=== PATIENT | female | born 1930 | race Caucasian/White ===

== ENCOUNTER 2018-12-23 13:33 | Emergency (ER) | payer MEDICARE, MEDICAID ==
[2018-12-23] MEDS ORDERED: cloNIDine 0.1 MG Tab PO ONE (14:16)
== END 2018-12-23 15:20 | disposition home or self-care (01) ==
LOC: LB.ED 13:33
DX: I10 Essential (primary) hypertension (principal)
CPT/HCPCS: 36415; 80048; 85025; 93005; 99283; A9270

== ENCOUNTER 2019-05-17 09:27 | Inpatient (IN) | payer MEDICARE, MEDICAID ==
[2019-05-17] MEDS ORDERED: atorvaSTATin 80 MG Tab PO ONE (09:42)
[2019-05-17] MEDS ORDERED: Clopidogrel 75 MG Tab PO ONE (09:54)
--- NOTE | 2019-05-17 10:01 | EDM.PDOC ---
ED HPI GENERAL MEDICAL PROBLEM - General Chief Complaint: General Stated Complaint: POSSIBLE STROKE Time Seen by Provider: 05/17/19 09:38 Source of Information: Reports: Patient History Limitations: Reports: No Limitations - History of Present Illness INITIAL COMMENTS - FREE TEXT/NARRATIVE: Qi was found to have speech difficulties upon awakening this am. Last known well time would obviate to last evening. She was immediately brought down for head ct. She initially had some transient nausea upon getting moved out of bed. Now denies pain, nausea, or anxiety. History constrained by her ability to speak only one word answers. - Related Data Allergies Allergy/AdvReac Type Severity Reaction Status Date / Time amlodipine [From Norvasc] Allergy Cannot Verified 02/23/18 10:28 Remember celecoxib [From Celebrex] Allergy Cannot Verified 02/23/18 10:28 Remember duloxetine [From Cymbalta] Allergy Cannot Verified 02/23/18 10:28 Remember fentanyl Allergy Cannot Verified 02/23/18 10:28 Remember hydrochlorothiazide Allergy Cannot Verified 02/23/18 10:28 [From Hyzaar] Remember losartan [From Hyzaar] Allergy Cannot Verified 02/23/18 10:28 Remember metronidazole [From Flagyl] Allergy Cannot Verified 02/23/18 10:28 Remember prednisone Allergy Cannot Verified 02/23/18 10:28 Remember Sulfa (Sulfonamide Allergy Diarrhea Verified 02/23/18 10:28 Antibiotics) tramadol [From Ultram] Allergy Cannot Verified 02/23/18 10:28 Remember Home Meds: Home Meds Furosemide 20 mg PO DAILY 12/17/16 [History] Levothyroxine 25 mcg PO ACBREAKFAST 12/17/16 [History] Lisinopril 10 mg PO QPM 12/17/16 [History] Lisinopril 20 mg PO QAM 12/17/16 [History] Cholecalciferol (Vitamin D3) [Vitamin D3] 2,000 unit PO DAILY 02/23/18 [History] Metoprolol Tartrate 50 mg PO BID 02/23/18 [History] polyethylene glycoL 3350 [MiraLAX] 17 gm PO QPM 02/23/18 [History] Past Medical History HEENT History: Reports: Hard of Hearing, Impaired Vision Cardiovascular History: Reports: Hypertension Respiratory History: Reports: None Gastrointestinal History: Reports: Diverticulosis MICA W[employer]ER GLUER History: Reports: Other MICA W[employer]UER History: Parity: 2 gravity: 2, 2 vaginal deliveries. no known MICHELLE Musculoskeletal History: Reports: Osteoarthritis Endocrine/Metabolic History: Reports: Hypothyroidism Oncologic (Cancer) History: Reports: None - Past Surgical History Other Respiratory Surgeries/Procedures: no O2 at night GI Surgical History: Reports: Appendectomy, Hernia Repair/Other Female Surgical History: Reports: Hysterectomy, Other (See Below) Other Female Surgeries/Procedures: Prolapsed vagina; bladder repair surgery; large cervical esophagus Other Neurological Surgeries/Procedures: no sensation changes in LEs Musculoskeletal Surgical History: Reports: Other (See Below) Other Musculoskeletal Surgeries/Procedures:: surgery right leg to relieve heal pain; left ankle repair tendon Social & Family History - Living Situation & Occupation Social History Comment: Lives in [facility]- [address]6. DNR ED ROS GENERAL - Review of Systems Review Of Systems: See Below (except as noted in HPI) Constitutional: Reports: No Symptoms Respiratory: Reports: No Symptoms Cardiovascular: Reports: No Symptoms GI/Abdominal: Reports: No Symptoms Musculoskeletal: Reports: No Symptoms Skin: Reports: No Symptoms Neurological: Denies: Headache ED EXAM, GENERAL - Physical Exam Exam: See Below Exam Limited By: Other (aphasia) General Appearance: Alert, No Apparent Distress Eye Exam: Bilateral Eye: EOMI, PERRL Ears: Normal External Exam, Hearing Grossly Normal Nose: Normal Inspection Throat/Mouth: Normal Inspection, Normal Lips, Normal Oropharynx. No: Normal Voice Head: Atraumatic, Normocephalic Neck: Normal Inspection, Supple, Non-Tender, Full Range of Motion Respiratory/Chest: No Respiratory Distress, Lungs Clear, Normal Breath Sounds Cardiovascular: Regular Rate, Rhythm, No Gallop, No Murmur, No Rub GI/Abdominal: Normal Bowel Sounds, Soft, Non-Tender Extremities: Normal Inspection, Non-Tender, Normal Capillary Refill Neurological: Alert, Oriented, Normal Reflexes, Other (right facial droop and right hemiparesis ) Skin Exam: Warm, Dry Course - Vital Signs Text/Narrative:: Clearly not TPA candidate as awoke with sx's Reviewed uptodate and, based on failure of daily baby aspirin and TIA with ABCD2 score of >4, clopidogrel initiated, along with statin increase after head CT negative for bleed per radiology Reviewed articles on minocycline and may not be entirely efficacious, but seems relatively benign NIHSS >16 upon arrival Last Recorded V/S: Last Vital Signs Temp 98.8 F 05/17/19 09:42 Pulse 67 05/17/19 09:42 Resp 16 05/17/19 09:42 BP 181/79 H 05/17/19 09:42 Pulse Ox 96 05/17/19 09:42 - Orders/Labs/Meds Orders: Active Orders 24 hr Category Date Time Status Admission Diagnosis [ADT] Routine ADT 05/17/19 10:57 Active Accu Check [Blood Glucose Check, Bedside] [RC] ONETIME Care 05/17/19 09:54 Active Cardiac Monitoring [RC] .As Directed Care 05/17/19 09:41 Active EKG Documentation Completion [RC] ASDIRECTED Care 05/17/19 09:38 Active Chest 1V Frontal [CR] Stat Exams 05/17/19 09:38 Taken Head wo Cont [CT] Stat Exams 05/17/19 09:33 Taken UA RFX KATHLEEN AND CULT IF INDIC [URIN] Routine Lab 05/17/19 09:37 Ordered Aspirin Med 05/17/19 09:45 Active 162 mg PO DAILY Medication Orders Aspirin (Aspirin) 162 mg PO DAILY [facility] Last Admin: 05/17/19 10:37 Dose: 162 mg Atorvastatin Calcium (Lipitor) 80 mg PO BEDTIME MICHAEL Labs: Laboratory Tests 05/17/19 05/17/19 05/17/19 Range/Units 09:39 10:15 10:15 WBC 8.5 D (4.0-11.0) K/uL RBC 3.63 L (3.80-5.80) M/uL Hgb 12.0 (11.5-16.5) g/dL Hct 34.8 L (37.0-47.0) % MCV 96 (76-96) fL MCH 33.1 H (27.0-32.0) pg MCHC 34.5 (31.0-35.0) g/dL RDW 14.4 (11.0-16.0) % Plt Count 219 (150-500) K/uL MPV 9.7 (6.0-10.0) fL Neut % (Auto) 73.3 H (45.0-70.0) % Lymph % (Auto) 13.6 L (20.0-40.0) % Brown % (Auto) 12.2 H (3.0-10.0) % Eos % (Auto) 0.8 L (1.0-5.0) % Baso % (Auto) 0.1 (0.0-0.5) % Neut # (Auto) 6.23 (2.00-7.50) K/uL Lymph # (Auto) 1.16 L (1.50-4.00) K/uL Brown # (Auto) 1.04 H (0.20-0.80) K/uL Eos # (Auto) 0.07 (0.04-0.40) K/uL Baso # (Auto) 0.01 L (0.02-0.10) K/uL PT 9.9 (9.0-11.5) sec INR 1.0 (1.0-3.5) APTT 24.5 (24.4-33.2) SECONDS Sodium 142 (136-145) mmol/L Potassium 4.6 (3.5-5.1) mmol/L Chloride 104 (98-107) mmol/L Carbon Dioxide 27.1 (21.0-32.0) mmol/L Anion Gap 15.5 H (5.0-15.0) mmol/L BUN 32 H D (8-26) mg/dL Creatinine 1.38 H (0.55-1.02) mg/dL Est Cr Clr Drug Dosing TNP Estimated GFR (MDRD) 36 L (>60) MLS/MIN BUN/Creatinine Ratio 23.2 (6-25) Glucose 122 H (74-100) mg/dL Calcium 9.1 (8.5-10.1) mg/dL Total Bilirubin 0.6 D (0.0-1.0) mg/dL AST 36 (15-37) U/L ALT 96 H (12-78) U/L Alkaline Phosphatase 80 (46-116) U/L Troponin I < 0.017 (0.000-0.060) ng/mL Total Protein 7.4 (6.4-8.2) g/dL Albumin 4.0 (3.4-5.0) g/dL Globulin 3.4 (2.2-4.2) g/dL Albumin/Globulin Ratio 1.2 (0.8-2.0) Meds: Medications Generic Name Dose Route Start Last Admin Trade Name Freq PRN Reason Stop Dose Admin Aspirin 162 mg 02/20/20 09:45 05/17/19 10:37 Aspirin PO 162 mg DAILY MICHAEL Administration Atorvastatin Calcium 80 mg 05/17/19 20:00 Lipitor PO BEDTIME MICHAEL Discontinued Medications Generic Name Dose Route Start Last Admin Trade Name Eduarda PRN Reason Stop Dose Admin Atorvastatin Calcium 80 mg 05/17/19 09:42 05/17/19 10:30 Lipitor PO 05/17/19 09:43 80 mg ONETIME ONE Administration Clopidogrel Bisulfate 300 mg 05/17/19 09:54 05/17/19 10:30 Plavix PO 05/17/19 09:55 300 mg ONETIME ONE Administration Clopidogrel Bisulfate Confirm 05/17/19 10:28 Plavix Administered 05/17/19 10:29 Dose 300 mg .ROUTE .STK-MED ONE Minocycline HCl 200 mg 05/17/19 09:49 Minocin PO 05/17/19 09:50 ONETIME ONE Departure - Departure Time of Disposition: 11:00 Disposition: Admitted As Inpatient 66 Clinical Impression: CVA, Cerebrovascular accident - Discharge Information *PRESCRIPTION DRUG MONITORING PROGRAM REVIEWED*: No *COPY OF PRESCRIPTION DRUG MONITORING REPORT IN PATIENT RAFFI: No Sepsis Event Note - Evaluation Sepsis Screening Result: No Definite Risk - Focused Exam Vital Signs: Vital Signs Temp Pulse Resp BP Pulse Ox 05/17/19 09:42 98.8 F 67 16 181/79 H 96 Date Exam was Performed: 05/17/19 Time Exam was Performed: 11:45 - My Orders Last 24 Hours: My Active Orders 05/17/19 09:33 Head wo Cont [CT] Stat 05/17/19 09:37 UA RFX KATHLEEN AND CULT IF INDIC [URIN] Routine 05/17/19 09:38 EKG Documentation Completion [RC] ASDIRECTED Chest 1V Frontal [CR] Stat 05/17/19 09:41 Cardiac Monitoring [RC] .As Directed 05/17/19 09:45 Aspirin 162 mg PO DAILY 05/17/19 09:54 Accu Check [Blood Glucose Check, Bedside] [RC] ONETIME 05/17/19 10:57 Admission Diagnosis [ADT] Routine - Assessment/Plan Last 24 Hours: My Active Orders 05/17/19 09:33 Head wo Cont [CT] Stat 05/17/19 09:37 UA RFX KATHLEEN AND CULT IF INDIC [URIN] Routine 05/17/19 09:38 EKG Documentation Completion [RC] ASDIRECTED Chest 1V Frontal [CR] Stat 05/17/19 09:41 Cardiac Monitoring [RC] .As Directed 05/17/19 09:45 Aspirin 162 mg PO DAILY 05/17/19 09:54 Accu Check [Blood Glucose Check, Bedside] [RC] ONETIME 05/17/19 10:57 Admission Diagnosis [ADT] Routine
[2019-05-17] MEDS ORDERED: Clopidogrel 75 MG Tab ONE (10:28)
[2019-05-17] MEDS: Aspirin 81 MG Tab.Chew PO SCH (10:37)
[2019-05-17] MEDS ORDERED: Sodium Chloride 0.9% 1,000 ML IV SCH (12:30)
[2019-05-17] MEDS ORDERED: Doxycycline 100 MG Vial ONE (13:20)
[2019-05-17] MEDS: FLUoxetine 20 MG Cap PO SCH (13:41)
[2019-05-17] MEDS: Doxycycline 100 MG in Sodium Chloride 0.9% 100 ML IV SCH ×2 (13:44→20:05)
[2019-05-17] MEDS: Enoxaparin 30 MG/0.3 ML Syringe SUBCUT SCH (13:47)
[2019-05-17] MEDS ORDERED: Albuterol/Ipratropium 3.0-0.5 MG/3 ML Neb Soln NEB PRN (15:23)
[2019-05-17] MEDS ORDERED: Furosemide 20 MG/2 ML VIAL IVPUSH ONE (16:28)
[2019-05-17] MEDS ORDERED: Furosemide 20 MG/2 ML VIAL ONE (16:42)
--- NOTE | 2019-05-17 19:38 | PCM.PN ---
- General Info Date of Service: 05/17/19 Subjective Update: Qi had increased respiratory effort. She actually requested her CPAP. Did not do well with the bedpan. Explained to the staff technologist that a cifuentes would be indicated, in my opinion, to follow her volume status carefully. Qi and family requested this, as well. We discussed the care plan of providing neuroprotective and potentially ineffective therapies, such as the SSRI. She is noted to have depression and we decided together to maximize potential therapies. - Review of Systems General: Reports: Weakness, Fatigue HEENT: Reports: No Symptoms Cardiovascular: Reports: Orthopnea, PND Gastrointestinal: Reports: No Symptoms Genitourinary: Reports: Frequency, Urgency, Incontinence Neurological: Reports: Weakness, Change in Speech Psychiatric: Reports: Anxiety - Patient Data Vitals - Most Recent: Last Vital Signs Temp 98.8 F 05/17/19 09:42 Pulse 95 05/17/19 15:23 Resp 20 05/17/19 12:46 BP 176/83 H 05/17/19 12:46 Pulse Ox 91 L 05/17/19 12:46 Weight - Most Recent: 157 lb 3.2 oz I&O - Last 24 Hours: Intake & Output 05/17/19 05/17/19 05/17/19 06:59 14:59 22:59 Intake Total 300 150 Output Total 1200 Balance -900 150 Lab Results Last 24 Hours: Laboratory Results - last 24 hr 05/17/19 05/17/19 05/17/19 Range/Units 09:39 10:15 10:15 WBC 8.5 D (4.0-11.0) K/uL RBC 3.63 L (3.80-5.80) M/uL Hgb 12.0 (11.5-16.5) g/dL Hct 34.8 L (37.0-47.0) % MCV 96 (76-96) fL MCH 33.1 H (27.0-32.0) pg MCHC 34.5 (31.0-35.0) g/dL RDW 14.4 (11.0-16.0) % Plt Count 219 (150-500) K/uL MPV 9.7 (6.0-10.0) fL Neut % (Auto) 73.3 H (45.0-70.0) % Lymph % (Auto) 13.6 L (20.0-40.0) % Baldwin % (Auto) 12.2 H (3.0-10.0) % Eos % (Auto) 0.8 L (1.0-5.0) % Baso % (Auto) 0.1 (0.0-0.5) % Neut # (Auto) 6.23 (2.00-7.50) K/uL Lymph # (Auto) 1.16 L (1.50-4.00) K/uL Baldwin # (Auto) 1.04 H (0.20-0.80) K/uL Eos # (Auto) 0.07 (0.04-0.40) K/uL Baso # (Auto) 0.01 L (0.02-0.10) K/uL PT 9.9 (9.0-11.5) sec INR 1.0 (1.0-3.5) APTT 24.5 (24.4-33.2) SECONDS Sodium 142 (136-145) mmol/L Potassium 4.6 (3.5-5.1) mmol/L Chloride 104 (98-107) mmol/L Carbon Dioxide 27.1 (21.0-32.0) mmol/L Anion Gap 15.5 H (5.0-15.0) mmol/L BUN 32 H D (8-26) mg/dL Creatinine 1.38 H (0.55-1.02) mg/dL Est Cr Clr Drug Dosing TNP Estimated GFR (MDRD) 36 L (>60) MLS/MIN BUN/Creatinine Ratio 23.2 (6-25) Glucose 122 H (74-100) mg/dL Calcium 9.1 (8.5-10.1) mg/dL Total Bilirubin 0.6 D (0.0-1.0) mg/dL AST 36 (15-37) U/L ALT 96 H (12-78) U/L Alkaline Phosphatase 80 (46-116) U/L Troponin I < 0.017 (0.000-0.060) ng/mL B-Natriuretic Peptide (0-450) pg/mL Total Protein 7.4 (6.4-8.2) g/dL Albumin 4.0 (3.4-5.0) g/dL Globulin 3.4 (2.2-4.2) g/dL Albumin/Globulin Ratio 1.2 (0.8-2.0) Urine Color Urine Appearance (CLEAR) Urine pH (5.0-8.0) Ur Specific Ortley (1.003-1.030) Urine Protein (NEGATIVE) mg/dL Urine Glucose (UA) (NEGATIVE) mg/dL Urine Ketones (NEGATIVE) mg/dL Urine Occult Blood (NEGATIVE) Urine Nitrite (NEGATIVE) Urine Bilirubin (NEGATIVE) Urine Urobilinogen (0.2-1.0) E.U./dL Ur Leukocyte Esterase (NEGATIVE) Urine RBC /HPF Urine WBC /HPF Ur Squamous Epith Cells /HPF Urine Bacteria /HPF 05/17/19 05/17/19 Range/Units 13:00 14:00 WBC (4.0-11.0) K/uL RBC (3.80-5.80) M/uL Hgb (11.5-16.5) g/dL Hct (37.0-47.0) % MCV (76-96) fL MCH (27.0-32.0) pg MCHC (31.0-35.0) g/dL RDW (11.0-16.0) % Plt Count (150-500) K/uL MPV (6.0-10.0) fL Neut % (Auto) (45.0-70.0) % Lymph % (Auto) (20.0-40.0) % Baldwin % (Auto) (3.0-10.0) % Eos % (Auto) (1.0-5.0) % Baso % (Auto) (0.0-0.5) % Neut # (Auto) (2.00-7.50) K/uL Lymph # (Auto) (1.50-4.00) K/uL Baldwin # (Auto) (0.20-0.80) K/uL Eos # (Auto) (0.04-0.40) K/uL Baso # (Auto) (0.02-0.10) K/uL PT (9.0-11.5) sec INR (1.0-3.5) APTT (24.4-33.2) SECONDS Sodium (136-145) mmol/L Potassium (3.5-5.1) mmol/L Chloride (98-107) mmol/L Carbon Dioxide (21.0-32.0) mmol/L Anion Gap (5.0-15.0) mmol/L BUN (8-26) mg/dL Creatinine (0.55-1.02) mg/dL Est Cr Clr Drug Dosing Estimated GFR (MDRD) (>60) MLS/MIN BUN/Creatinine Ratio (6-25) Glucose (74-100) mg/dL Calcium (8.5-10.1) mg/dL Total Bilirubin (0.0-1.0) mg/dL AST (15-37) U/L ALT (12-78) U/L Alkaline Phosphatase (46-116) U/L Troponin I < 0.017 (0.000-0.060) ng/mL B-Natriuretic Peptide 2189 H D (0-450) pg/mL Total Protein (6.4-8.2) g/dL Albumin (3.4-5.0) g/dL Globulin (2.2-4.2) g/dL Albumin/Globulin Ratio (0.8-2.0) Urine Color Yellow Urine Appearance Clear (CLEAR) Urine pH 6.0 (5.0-8.0) Ur Specific Ortley 1.025 (1.003-1.030) Urine Protein 30 H (NEGATIVE) mg/dL Urine Glucose (UA) Negative (NEGATIVE) mg/dL Urine Ketones Negative (NEGATIVE) mg/dL Urine Occult Blood Negative (NEGATIVE) Urine Nitrite Negative (NEGATIVE) Urine Bilirubin Negative (NEGATIVE) Urine Urobilinogen 0.2 (0.2-1.0) E.U./dL Ur Leukocyte Esterase Small H (NEGATIVE) Urine RBC Not seen /HPF Urine WBC 20-30 H /HPF Ur Squamous Epith Cells Few /HPF Urine Bacteria Moderate H /HPF Med Orders - Current: Current Medications Albuterol/Ipratropium (Duoneb 3.0-0.5 Mg/3 Ml) 3 ml NEB Q4H PRN PRN Reason: Wheezing Last Admin: 05/17/19 15:38 Dose: 3 ml Aspirin (Aspirin) 162 mg PO DAILY [facility] Last Admin: 05/17/19 10:37 Dose: 162 mg Atorvastatin Calcium (Lipitor) 80 mg PO BEDTIME MICHAEL Clopidogrel Bisulfate (Plavix) 75 mg PO DAILY [facility] Enoxaparin Sodium (Lovenox) 30 mg SUBCUT Q24H [facility] Last Admin: 05/17/19 13:47 Dose: 30 mg Fluoxetine HCl (Prozac) 20 mg PO DAILY [facility] Last Admin: 05/17/19 13:41 Dose: 20 mg Doxycycline Hyclate 100 mg/ (Sodium Chloride) 100 mls @ 100 mls/hr IV Q12HR [facility] Last Admin: 05/17/19 13:44 Dose: 100 mls/hr Discontinued Medications Atorvastatin Calcium (Lipitor) 80 mg PO ONETIME ONE Stop: 05/17/19 09:43 Last Admin: 05/17/19 10:30 Dose: 80 mg Clopidogrel Bisulfate (Plavix) 300 mg PO ONETIME ONE Stop: 05/17/19 09:55 Last Admin: 05/17/19 10:30 Dose: 300 mg Clopidogrel Bisulfate (Plavix) Confirm Administered Dose 300 mg .ROUTE .STK-MED ONE Stop: 05/17/19 10:29 Last Admin: 05/17/19 13:15 Dose: Not Given Clopidogrel Bisulfate (Plavix) 75 mg PO DAILY [facility] Doxycycline Hyclate (Vibramycin) Confirm Administered Dose 100 mg .ROUTE .STK- MED ONE Stop: 05/17/19 13:21 Last Admin: 05/17/19 13:48 Dose: Not Given Furosemide (Lasix) 20 mg IVPUSH ONETIME ONE Stop: 05/17/19 16:29 Last Admin: 05/17/19 16:55 Dose: 20 mg Furosemide (Lasix) Confirm Administered Dose 20 mg .ROUTE .STK-MED ONE Stop: 05/17/19 16:43 Last Admin: 05/17/19 18:59 Dose: Not Given Doxycycline Hyclate 100 mg/ (Sodium Chloride) 100 mls @ 100 mls/hr IV Q12HR [facility] Sodium Chloride (Normal Saline) 1,000 mls @ 125 mls/hr IV ASDIRECTED [facility] Last Admin: 05/17/19 13:30 Dose: 125 mls/hr Minocycline HCl (Minocin) 200 mg PO ONETIME ONE Stop: 05/17/19 09:50 Sepsis Event Note - Evaluation Sepsis Screening Result: No Definite Risk - Focused Exam Vital Signs: Vital Signs Temp Pulse Resp BP BP Pulse Ox 05/17/19 15:23 95 05/17/19 12:46 20 176/83 H 91 L 05/17/19 09:42 98.8 F 67 16 181/79 H 96 Date Exam was Performed: 05/17/19 Time Exam was Performed: 19:30 - Problem List Review Problem List Initiated/Reviewed/Updated: Yes - My Orders Last 24 Hours: My Active Orders 05/17/19 09:33 Head wo Cont [CT] Stat 05/17/19 09:38 EKG Documentation Completion [RC] ASDIRECTED Chest 1V Frontal [CR] Stat 05/17/19 09:41 Cardiac Monitoring [RC] .As Directed 05/17/19 09:45 Aspirin 162 mg PO DAILY 05/17/19 09:54 Accu Check [Blood Glucose Check, Bedside] [RC] ONETIME 05/17/19 10:57 Admission Diagnosis [ADT] Routine 05/17/19 11:08 Admission Status [Patient Status] [ADT] Routine 05/17/19 11:36 Consult to Physical Therapy [PT Evaluation and Treatment] [CONS] Routine 05/17/19 11:48 OT Evaluation and Treatment [CONS] Routine 05/17/19 12:30 FLUoxetine [PROzac] 20 mg PO DAILY 05/17/19 12:39 Activity as Tolerated [RC] .Routine 05/17/19 12:40 Vital Signs [RC] PER UNIT ROUTINE 05/17/19 13:00 CULTURE URINE [RM] Routine 05/17/19 13:13 Code Status [Resuscitation Status] Routine 05/17/19 13:30 Doxycycline [Vibramycin] 100 mg Sodium Chloride 0.9% [Normal Saline] 100 ml IV Q12HR 05/17/19 13:32 EKG Documentation Completion [RC] ASDIRECTED 05/17/19 14:00 Enoxaparin [Lovenox] 30 mg SUBCUT Q24H 05/17/19 15:23 Elevate Head of Bed [Head of Bed Elevation] [RC] ASDIRECTED RT Aerosol Therapy [RC] ASDIRECTED Albuterol/Ipratropium [DuoNeb 3.0-0.5 MG/3 ML] 3 ml NEB Q4H PRN 05/17/19 20:00 atorvaSTATin [Lipitor] 80 mg PO BEDTIME 05/17/19 Dinner Regular Diet [DIET] 05/18/19 08:00 Clopidogrel [Plavix] 75 mg PO DAILY - Assessment Assessment:: 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 Continue rehab and anticipate NH placement, hopefully Tuesday.
[2019-05-17] MEDS ORDERED: Doxycycline 100 MG in Sodium Chloride 0.9% 100 ML IV SCH (20:00)
[2019-05-17] MEDS: atorvaSTATin 80 MG Tab PO SCH (20:07)
--- NOTE | 2019-05-18 07:34 | CT ---
Date of Service: 05/17/19 Clinical Data: possible stroke UNENHANCED BRAIN CT: Multislice acquisition the brain without IV contrast was performed. Comparison was made to a prior exam dated 09/15/12. There is diffuse cerebral atrophy. There are periventricular lucencies bilaterally consistent with small vessel ischemic change. No masses or mass effect. No intracranial hemorrhage. No evidence of acute or subacute infarct. No fractures. IMPRESSIONS: No acute intracranial abnormalities. [id number] [facility]
--- NOTE | 2019-05-18 07:37 | CR ---
Date of Service: 05/17/19 Clinical Data: CVA AP CHEST: Comparison is made to a prior exam dated 02/23/18. The heart remains enlarged, unchanged. There is pulmonary vascular congestion and mild interstitial edema in both lungs consistent with congestive failure. There is chronic eventration in the right hemidiaphragm. There is a gas- containing mass posterior to the heart consistent with a large hiatal hernia. No pneumothorax. No pleural effusions. [id number] [facility]
[2019-05-18] MEDS ORDERED: Clopidogrel 75 MG Tab PO SCH (08:00)
[2019-05-18] MEDS: Aspirin 81 MG Tab.Chew PO SCH (08:14)
[2019-05-18] MEDS: FLUoxetine 20 MG Cap PO SCH (08:14)
[2019-05-18] MEDS: Clopidogrel 75 MG Tab PO SCH (08:14)
[2019-05-18] MEDS: Doxycycline 100 MG in Sodium Chloride 0.9% 100 ML IV SCH (08:58)
[2019-05-18] MEDS: LORazepam 2 MG/ML SDV IVPUSH PRN (10:10)
[2019-05-18] MEDS: Enoxaparin 30 MG/0.3 ML Syringe SUBCUT SCH (13:31)
[2019-05-18] MEDS ORDERED: Furosemide 20 MG/2 ML VIAL IVPUSH ONE (16:30)
[2019-05-18] MEDS ORDERED: Doxycycline 100 MG Cap PO SCH (17:00)
--- NOTE | 2019-05-18 19:11 | PCM.PN ---
- General Info Date of Service: 05/18/19 Subjective Update: Qi felt more tired today. Some ongoing dysarthria. She did get up to the commode with assistance this am. She had some burning of the IV doxy. She started to have some bibasilar crackles in the afternoon. SBP in 150's. Responded to a low dose loop and no other issues. Daughter stayed last night and is curious of anticipated recovery potential. Anxiolytic was provided per their request. - Review of Systems Cardiovascular: Reports: Orthopnea. Denies: Chest Pain, Palpitations Gastrointestinal: Reports: No Symptoms Genitourinary: Reports: No Symptoms Psychiatric: Reports: Anxiety - Patient Data Vitals - Most Recent: Last Vital Signs Temp 97.9 F 05/18/19 16:15 Pulse 75 05/18/19 16:15 Resp 18 05/18/19 16:15 BP 192/90 H 05/18/19 16:15 Pulse Ox 94 L 05/18/19 08:23 Weight - Most Recent: 157 lb 3.2 oz I&O - Last 24 Hours: Intake & Output 05/18/19 05/18/19 05/18/19 06:59 14:59 22:59 Intake Total 151 150 Output Total 1125 Balance 151 -975 Lab Results Last 24 Hours: Laboratory Results - last 24 hr 05/18/19 Range/Units 10:01 POC Glucose 130 H (74-110) mg/dL Med Orders - Current: Current Medications Albuterol/Ipratropium (Duoneb 3.0-0.5 Mg/3 Ml) 3 ml NEB Q4H PRN PRN Reason: Wheezing Last Admin: 05/17/19 15:38 Dose: 3 ml Aspirin (Aspirin) 162 mg PO DAILY [facility] Last Admin: 05/18/19 08:14 Dose: 162 mg Atorvastatin Calcium (Lipitor) 80 mg PO BEDTIME [facility] Last Admin: 05/17/19 20:07 Dose: 80 mg Clopidogrel Bisulfate (Plavix) 75 mg PO DAILY [facility] Last Admin: 05/18/19 08:14 Dose: 75 mg Doxycycline Hyclate (Vibramycin) 100 mg PO Q12H [facility] Enoxaparin Sodium (Lovenox) 30 mg SUBCUT Q24H [facility] Last Admin: 05/18/19 13:31 Dose: 30 mg Fluoxetine HCl (Prozac) 20 mg PO DAILY [facility] Last Admin: 05/18/19 08:14 Dose: 20 mg Lorazepam (Ativan) 0.5 mg IVPUSH Q4H PRN PRN Reason: Agitation Last Admin: 05/18/19 10:10 Dose: 0.5 mg Discontinued Medications Atorvastatin Calcium (Lipitor) 80 mg PO ONETIME ONE Stop: 05/17/19 09:43 Last Admin: 05/17/19 10:30 Dose: 80 mg Clopidogrel Bisulfate (Plavix) 300 mg PO ONETIME ONE Stop: 05/17/19 09:55 Last Admin: 05/17/19 10:30 Dose: 300 mg Clopidogrel Bisulfate (Plavix) Confirm Administered Dose 300 mg .ROUTE .STK-MED ONE Stop: 05/17/19 10:29 Last Admin: 05/17/19 13:15 Dose: Not Given Clopidogrel Bisulfate (Plavix) 75 mg PO DAILY [facility] Doxycycline Hyclate (Vibramycin) Confirm Administered Dose 100 mg .ROUTE .STK- MED ONE Stop: 05/17/19 13:21 Last Admin: 05/17/19 13:48 Dose: Not Given Doxycycline Hyclate (Vibramycin) 100 mg PO Q12H [facility] Furosemide (Lasix) 20 mg IVPUSH ONETIME ONE Stop: 05/17/19 16:29 Last Admin: 05/17/19 16:55 Dose: 20 mg Furosemide (Lasix) Confirm Administered Dose 20 mg .ROUTE .STK-MED ONE Stop: 05/17/19 16:43 Last Admin: 05/17/19 18:59 Dose: Not Given Furosemide (Lasix) 10 mg IVPUSH NOW ONE Stop: 05/18/19 16:31 Last Admin: 05/18/19 16:40 Dose: 10 mg Doxycycline Hyclate 100 mg/ (Sodium Chloride) 100 mls @ 100 mls/hr IV Q12HR [facility] Sodium Chloride (Normal Saline) 1,000 mls @ 125 mls/hr IV ASDIRECTED [facility] Last Admin: 05/17/19 13:30 Dose: 125 mls/hr Doxycycline Hyclate 100 mg/ (Sodium Chloride) 100 mls @ 100 mls/hr IV Q12HR [facility] Last Admin: 05/18/19 08:58 Dose: 100 mls/hr Minocycline HCl (Minocin) 200 mg PO ONETIME ONE Stop: 02/20/20 09:50 - Exam General: Alert, Oriented HEENT: EOMI, Mucous Membr. Moist/[place] Neck: Supple Lungs: Clear to Auscultation, Normal Respiratory Effort Cardiovascular: Regular Rate, Regular Rhythm. No: Murmurs GI/Abdominal Exam: Normal Bowel Sounds, Soft, Non-Tender Extremities: Normal Inspection Skin: Warm, Dry Neurological: No New Focal Deficit Psy/Mental Status: Alert, Anxious Sepsis Event Note - Evaluation Sepsis Screening Result: No Definite Risk - Focused Exam Vital Signs: Vital Signs Temp Pulse Resp BP BP Pulse Ox 05/18/19 16:15 97.9 F 75 18 192/90 H 05/18/19 08:23 97.1 F 64 16 156/87 H 94 L Date Exam was Performed: 05/18/19 Time Exam was Performed: 19:05 - Problem List Review Problem List Initiated/Reviewed/Updated: Yes - My Orders Last 24 Hours: My Active Orders 05/17/19 20:00 atorvaSTATin [Lipitor] 80 mg PO BEDTIME 05/18/19 08:00 Clopidogrel [Plavix] 75 mg PO DAILY 05/18/19 09:47 Consult to Speech Language Pathology [PRODUCT DEVELOPMENT CONSULTANT Evaluation and Treatment] [CONS] Routine 05/18/19 09:48 LORazepam [Ativan] 0.5 mg IVPUSH Q4H PRN 05/18/19 20:00 Doxycycline [Vibramycin] 100 mg PO Q12H - Assessment Assessment:: 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 Continue rehab and anticipate swing bed status, hopefully Tuesday. PRN ativan and will watch for fluid overload. BP seems optimized. - Plan Plan:: Appreciate efforts of Physical/Occupational/Speech therapies. Nutritional status seems okay for all intensive purposes.
[2019-05-18] MEDS: Doxycycline 100 MG Cap PO SCH (20:49)
[2019-05-18] MEDS: atorvaSTATin 80 MG Tab PO SCH (20:50)
[2019-05-19] MEDS: LORazepam 2 MG/ML SDV IVPUSH PRN ×2 (01:00→19:39)
[2019-05-19] MEDS: FLUoxetine 20 MG Cap PO SCH (07:35)
[2019-05-19] MEDS: Doxycycline 100 MG Cap PO SCH ×2 (07:35→19:36)
[2019-05-19] MEDS: Aspirin 81 MG Tab.Chew PO SCH (07:35)
[2019-05-19] MEDS: Clopidogrel 75 MG Tab PO SCH (07:36)
[2019-05-19] MEDS: Enoxaparin 30 MG/0.3 ML Syringe SUBCUT SCH (13:56)
--- NOTE | 2019-05-19 15:10 | PCM.PN ---
- General Info Date of Service: 05/19/19 Subjective Update: Further dysarthria evident at times. She has been up to the chair. No new deficits. Tolerating medications well. No orthopnea. Wishes to keep in cifuentes until more functional. Functional Status: Reports: Pain Controlled - Review of Systems General: Reports: Fatigue Pulmonary: Reports: No Symptoms Cardiovascular: Reports: No Symptoms - Patient Data Vitals - Most Recent: Last Vital Signs Temp 98.9 F 05/19/19 14:26 Pulse 71 05/19/19 14:02 Resp 18 05/19/19 14:26 BP 157/73 H 05/19/19 14:26 Pulse Ox 96 05/19/19 14:26 Weight - Most Recent: 157 lb 3.2 oz I&O - Last 24 Hours: Intake & Output 05/19/19 05/19/19 05/19/19 06:59 14:59 22:59 Intake Total 700 Output Total 450 425 Balance -450 275 Ortega Results Last 24 Hours: Microbiology 05/17/19 13:00 Urine Culture - Final Urine, Clean Catch Escherichia Coli Med Orders - Current: Current Medications Albuterol/Ipratropium (Duoneb 3.0-0.5 Mg/3 Ml) 3 ml NEB Q4H PRN PRN Reason: Wheezing Last Admin: 05/17/19 15:38 Dose: 3 ml Aspirin (Aspirin) 162 mg PO DAILY [facility] Last Admin: 05/19/19 07:35 Dose: 162 mg Atorvastatin Calcium (Lipitor) 80 mg PO BEDTIME [facility] Last Admin: 05/18/19 20:50 Dose: 80 mg Clopidogrel Bisulfate (Plavix) 75 mg PO DAILY [facility] Last Admin: 05/19/19 07:36 Dose: 75 mg Doxycycline Hyclate (Vibramycin) 100 mg PO Q12H [facility] Last Admin: 05/19/19 07:35 Dose: 100 mg Enoxaparin Sodium (Lovenox) 30 mg SUBCUT Q24H [facility] Last Admin: 05/19/19 13:56 Dose: 30 mg Fluoxetine HCl (Prozac) 20 mg PO DAILY [facility] Last Admin: 05/19/19 07:35 Dose: 20 mg Lorazepam (Ativan) 0.5 mg IVPUSH Q4H PRN PRN Reason: Agitation Last Admin: 05/19/19 01:00 Dose: 0.5 mg Discontinued Medications Atorvastatin Calcium (Lipitor) 80 mg PO ONETIME ONE Stop: 05/17/19 09:43 Last Admin: 05/17/19 10:30 Dose: 80 mg Clopidogrel Bisulfate (Plavix) 300 mg PO ONETIME ONE Stop: 05/17/19 09:55 Last Admin: 05/17/19 10:30 Dose: 300 mg Clopidogrel Bisulfate (Plavix) Confirm Administered Dose 300 mg .ROUTE .STK-MED ONE Stop: 05/17/19 10:29 Last Admin: 05/17/19 13:15 Dose: Not Given Clopidogrel Bisulfate (Plavix) 75 mg PO DAILY [facility] Doxycycline Hyclate (Vibramycin) Confirm Administered Dose 100 mg .ROUTE .STK- MED ONE Stop: 05/17/19 13:21 Last Admin: 05/17/19 13:48 Dose: Not Given Doxycycline Hyclate (Vibramycin) 100 mg PO Q12H [facility] Furosemide (Lasix) 20 mg IVPUSH ONETIME ONE Stop: 05/17/19 16:29 Last Admin: 05/17/19 16:55 Dose: 20 mg Furosemide (Lasix) Confirm Administered Dose 20 mg .ROUTE .STK-MED ONE Stop: 05/17/19 16:43 Last Admin: 05/17/19 18:59 Dose: Not Given Furosemide (Lasix) 10 mg IVPUSH NOW ONE Stop: 05/18/19 16:31 Last Admin: 05/18/19 16:40 Dose: 10 mg Doxycycline Hyclate 100 mg/ (Sodium Chloride) 100 mls @ 100 mls/hr IV Q12HR [facility] Sodium Chloride (Normal Saline) 1,000 mls @ 125 mls/hr IV ASDIRECTED [facility] Last Admin: 05/17/19 13:30 Dose: 125 mls/hr Doxycycline Hyclate 100 mg/ (Sodium Chloride) 100 mls @ 100 mls/hr IV Q12HR [facility] Last Admin: 05/18/19 08:58 Dose: 100 mls/hr Minocycline HCl (Minocin) 200 mg PO ONETIME ONE Stop: 05/17/19 09:50 - Exam General: Alert, Oriented HEENT: EOMI, Mucous Membr. Moist/[place] Neck: Supple Lungs: Clear to Auscultation, Normal Respiratory Effort Cardiovascular: Regular Rate, Regular Rhythm GI/Abdominal Exam: Normal Bowel Sounds, Soft, Non-Tender Extremities: Normal Inspection, Normal Range of Motion, Non-Tender, Normal Capillary Refill Skin: Warm, Dry Neurological: No New Focal Deficit Psy/Mental Status: Alert, Normal Affect, Normal Mood Sepsis Event Note - Evaluation Sepsis Screening Result: No Definite Risk - Focused Exam Vital Signs: Vital Signs Temp Pulse Resp BP Pulse Ox 05/19/19 14:26 98.9 F 18 157/73 H 96 05/19/19 14:02 99.2 F 71 18 167/76 H 96 05/19/19 13:49 99.4 F 05/19/19 07:33 98.0 F 75 16 96 Date Exam was Performed: 05/19/19 Time Exam was Performed: 15:01 - Problem List Review Problem List Initiated/Reviewed/Updated: Yes - My Orders Last 24 Hours: My Active Orders 05/18/19 20:00 Doxycycline [Vibramycin] 100 mg PO Q12H 05/19/19 Dinner Soft Diet [DIET] - Assessment Assessment:: 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 Continue rehab and anticipate swing bed status, hopefully Tuesday. PRN ativan and will watch for fluid overload. BP seems a little on the high side. - Plan Plan:: Appreciate efforts of Physical/Occupational/Speech therapies. Nutritional status seems okay for all intensive purposes.
[2019-05-19] MEDS: atorvaSTATin 80 MG Tab PO SCH (19:35)
[2019-05-19] MEDS: Lisinopril 5 MG Tab PO SCH (19:36)
[2019-05-19] MEDS ORDERED: LORazepam 2 MG/ML SDV IVPUSH PRN (21:40)
[2019-05-20] MEDS ORDERED: Morphine 2 MG/ML Syringe IVPUSH PRN (02:09)
[2019-05-20] MEDS ORDERED: Furosemide 20 MG/2 ML VIAL IVPUSH PRN (02:11)
[2019-05-20] MEDS: Aspirin 81 MG Tab.Chew PO SCH (09:23)
[2019-05-20] MEDS: Clopidogrel 75 MG Tab PO SCH (09:23)
[2019-05-20] MEDS: FLUoxetine 20 MG Cap PO SCH (09:23)
[2019-05-20] MEDS: Lisinopril 5 MG Tab PO SCH ×2 (09:24→20:13)
[2019-05-20] MEDS: Doxycycline 100 MG Cap PO SCH (09:24)
[2019-05-20] MEDS: traZODone 50 MG Tab PO SCH (10:13)
[2019-05-20] MEDS ORDERED: traMADol 50 MG Tab PO PRN (11:21)
[2019-05-20] MEDS ORDERED: Acetaminophen 500 MG Tab PO SCH (11:30)
[2019-05-20] MEDS ORDERED: Acetaminophen 500 MG Tab ONE (12:36)
[2019-05-20] MEDS ORDERED: Metoprolol Succinate 25 MG Tab.ER ONE (12:36)
[2019-05-20] MEDS: Metoprolol Succinate 25 MG Tab.ER PO SCH (12:39)
[2019-05-20] MEDS: Acetaminophen 500 MG Tab PO SCH ×2 (12:40→20:13)
[2019-05-20] MEDS: Enoxaparin 30 MG/0.3 ML Syringe SUBCUT SCH (14:03)
--- NOTE | 2019-05-20 19:59 | PCM.PN ---
- General Info Date of Service: 05/20/19 Subjective Update: In all honesty, Qi had a really rough time sleeping the night and afternoon prior. This ultimately resulted in an increase in lorazepam over the shift superintendent caustic cresylate, which was largely ineffective. I was called appropriately as she had not fallen to sleep and had mentioned some pain in her affected arm. She was given a low dose of morphine sulfate. Her insomnia seemed related to the relatively new CPAP mask which did not seem to agree with her at all. Today, she slept adequately with a nasal cannula. Her family's primary concern was her dry mouth. She attempted to chew some shredded chicken for lunch, and this did not go well, so we ordered a mechanical soft diet. She mainly slept all day. Family expressed concern over oversedation in regard to her pain medication, and we adjusted her regimen with the input of nursing staff. He right wrist was a bit red, and this improved with elevation and cool compress. Eventually her IV infiltrated, and it was discontinued. I discussed the timing of cifuentes removal with the pt, family, and clinical staff rn, and we decided together that the benefit of close fluid status monitoring outweighed the risk of CAUTI from a clinical standpoint, and this provided a sense of honoring her dignity somewhat given the other option of soaking briefs. Visitors re-iterated difficult questions to answer, mainly being how much of her function she will recover. - Review of Systems Pulmonary: Reports: No Symptoms Cardiovascular: Reports: No Symptoms Gastrointestinal: Reports: No Symptoms Neurological: Reports: Other (no changes) Psychiatric: Reports: Anxiety - Patient Data Vitals - Most Recent: Last Vital Signs Temp 99.3 F 05/20/19 12:55 Pulse 82 05/20/19 12:55 Resp 20 05/20/19 12:55 BP 146/69 H 05/20/19 12:55 Pulse Ox 98 05/20/19 12:55 Weight - Most Recent: 153 lb I&O - Last 24 Hours: Intake & Output 05/20/19 05/20/19 05/20/19 06:59 14:59 22:59 Intake Total 120 240 Output Total 300 100 Balance -180 140 Lab Results Last 24 Hours: Laboratory Results - last 24 hr 05/20/19 05/20/19 Range/Units 14:00 14:00 WBC 8.9 (4.0-11.0) K/uL RBC 3.53 L (3.80-5.80) M/uL Hgb 11.5 (11.5-16.5) g/dL Hct 33.8 L (37.0-47.0) % MCV 96 (76-96) fL MCH 32.6 H (27.0-32.0) pg MCHC 34.0 (31.0-35.0) g/dL RDW 13.8 (11.0-16.0) % Plt Count 183 (150-500) K/uL MPV 9.9 (6.0-10.0) fL Neut % (Auto) 70.0 (45.0-70.0) % Lymph % (Auto) 12.1 L (20.0-40.0) % [place] % (Auto) 17.6 H (3.0-10.0) % Eos % (Auto) 0.2 L (1.0-5.0) % Baso % (Auto) 0.1 (0.0-0.5) % Neut # (Auto) 6.22 (2.00-7.50) K/uL Lymph # (Auto) 1.08 L (1.50-4.00) K/uL [place] # (Auto) 1.57 H (0.20-0.80) K/uL Eos # (Auto) 0.02 L (0.04-0.40) K/uL Baso # (Auto) 0.01 L (0.02-0.10) K/uL Sodium 136 (136-145) mmol/L Potassium 4.3 (3.5-5.1) mmol/L Chloride 100 (98-107) mmol/L Carbon Dioxide 26.7 (21.0-32.0) mmol/L Anion Gap 13.6 (5.0-15.0) mmol/L BUN 20 D (8-26) mg/dL Creatinine 1.11 H (0.55-1.02) mg/dL Est Cr Clr Drug Dosing 30.92 mL/min Estimated GFR (MDRD) 46 L (>60) MLS/MIN BUN/Creatinine Ratio 18.0 (6-25) Glucose 118 H (74-100) mg/dL Calcium 8.6 (8.5-10.1) mg/dL Magnesium 1.8 (1.8-2.4) mg/dL Total Bilirubin 0.8 D (0.0-1.0) mg/dL AST 22 (15-37) U/L ALT 41 (12-78) U/L Alkaline Phosphatase 69 (46-116) U/L B-Natriuretic Peptide 1626 H D (0-450) pg/mL Total Protein 6.6 (6.4-8.2) g/dL Albumin 3.0 L (3.4-5.0) g/dL Globulin 3.6 (2.2-4.2) g/dL Albumin/Globulin Ratio 0.8 (0.8-2.0) TSH, Ultra Sensitive 2.415 (0.358-3.740) uIU/mL Med Orders - Current: Current Medications Acetaminophen (Tylenol Extra Strength) 1,000 mg PO Q12H [facility] Last Admin: 05/20/19 12:40 Dose: 1,000 mg Albuterol/Ipratropium (Duoneb 3.0-0.5 Mg/3 Ml) 3 ml NEB Q4H PRN PRN Reason: Wheezing Last Admin: 05/17/19 15:38 Dose: 3 ml Aspirin (Aspirin) 81 mg PO DAILY [facility] Last Admin: 05/20/19 09:23 Dose: 81 mg Atorvastatin Calcium (Lipitor) 80 mg PO BEDTIME [facility] Last Admin: 05/19/19 19:35 Dose: 80 mg Clopidogrel Bisulfate (Plavix) 75 mg PO DAILY [facility] Last Admin: 05/20/19 09:23 Dose: 75 mg Doxycycline Hyclate (Vibramycin) 100 mg PO Q12H [facility] Last Admin: 05/20/19 09:24 Dose: 100 mg Enoxaparin Sodium (Lovenox) 30 mg SUBCUT Q24H [facility] Last Admin: 05/20/19 14:03 Dose: 30 mg Fluoxetine HCl (Prozac) 20 mg PO DAILY [facility] Last Admin: 05/20/19 09:23 Dose: 20 mg Furosemide (Lasix) 20 mg IVPUSH Q6H PRN PRN Reason: Wheezing Lisinopril (Prinivil) 2.5 mg PO BID [facility] Last Admin: 05/20/19 09:24 Dose: 2.5 mg Melatonin (Melatonin) 3 mg PO BEDTIME [facility] Metoprolol Succinate (Toprol Xl) 12.5 mg PO DAILY [facility] Last Admin: 05/20/19 12:39 Dose: 12.5 mg Tramadol HCl (Ultram) 50 mg PO Q4H PRN PRN Reason: PAIN Trazodone HCl (Trazodone) 50 mg PO BEDTIME [facility] Discontinued Medications Acetaminophen (Tylenol Extra Strength) 1,000 mg PO Q12H [facility] Last Admin: 05/20/19 12:53 Dose: Not Given Acetaminophen (Tylenol Extra Strength) Confirm Administered Dose 1,000 mg .ROUTE .STK-MED ONE Stop: 05/20/19 12:37 Aspirin (Aspirin) 162 mg PO DAILY [facility] Last Admin: 05/19/19 07:35 Dose: 162 mg Atorvastatin Calcium (Lipitor) 80 mg PO ONETIME ONE Stop: 05/17/19 09:43 Last Admin: 05/17/19 10:30 Dose: 80 mg Clopidogrel Bisulfate (Plavix) 300 mg PO ONETIME ONE Stop: 05/17/19 09:55 Last Admin: 05/17/19 10:30 Dose: 300 mg Clopidogrel Bisulfate (Plavix) Confirm Administered Dose 300 mg .ROUTE .STK-MED ONE Stop: 05/17/19 10:29 Last Admin: 05/17/19 13:15 Dose: Not Given Clopidogrel Bisulfate (Plavix) 75 mg PO DAILY [facility] Doxycycline Hyclate (Vibramycin) Confirm Administered Dose 100 mg .ROUTE .STK- MED ONE Stop: 05/17/19 13:21 Last Admin: 05/17/19 13:48 Dose: Not Given Doxycycline Hyclate (Vibramycin) 100 mg PO Q12H [facility] Last Admin: 05/20/19 11:30 Dose: Not Given Furosemide (Lasix) 20 mg IVPUSH ONETIME ONE Stop: 05/17/19 16:29 Last Admin: 05/17/19 16:55 Dose: 20 mg Furosemide (Lasix) Confirm Administered Dose 20 mg .ROUTE .STK-MED ONE Stop: 05/17/19 16:43 Last Admin: 05/17/19 18:59 Dose: Not Given Furosemide (Lasix) 10 mg IVPUSH NOW ONE Stop: 05/18/19 16:31 Last Admin: 05/18/19 16:40 Dose: 10 mg Doxycycline Hyclate 100 mg/ (Sodium Chloride) 100 mls @ 100 mls/hr IV Q12HR [facility] Sodium Chloride (Normal Saline) 1,000 mls @ 125 mls/hr IV ASDIRECTED [facility] Last Admin: 05/17/19 13:30 Dose: 125 mls/hr Doxycycline Hyclate 100 mg/ (Sodium Chloride) 100 mls @ 100 mls/hr IV Q12HR [facility] Last Admin: 05/18/19 08:58 Dose: 100 mls/hr Lorazepam (Ativan) 0.5 mg IVPUSH Q4H PRN PRN Reason: Agitation Last Admin: 05/19/19 19:39 Dose: 0.5 mg Lorazepam (Ativan) 0.5 - 1 mg IVPUSH Q2H PRN PRN Reason: Agitation Last Admin: 05/19/19 23:40 Dose: 1 mg Metoprolol Succinate (Toprol Xl) Confirm Administered Dose 25 mg .ROUTE .STK- MED ONE Stop: 05/20/19 12:37 Minocycline HCl (Minocin) 200 mg PO ONETIME ONE Stop: 05/17/19 09:50 Last Admin: 05/20/19 11:30 Dose: Not Given Morphine Sulfate (Morphine) 2 mg IVPUSH Q2H PRN PRN Reason: pain Last Admin: 05/20/19 02:25 Dose: 2 mg Sepsis Event Note - Evaluation Sepsis Screening Result: No Definite Risk - Focused Exam Vital Signs: Vital Signs Temp Pulse Pulse Resp BP BP Pulse Ox 05/20/19 12:55 99.3 F 82 20 146/69 H 98 05/20/19 12:39 79 146/69 H 05/20/19 10:00 88 18 160/90 H 97 05/20/19 09:24 160/90 H Date Exam was Performed: 05/20/19 Time Exam was Performed: 19:51 - Problem List Review Problem List Initiated/Reviewed/Updated: No - My Orders Last 24 Hours: My Active Orders 05/19/19 20:00 lisinopriL [Prinivil] 2.5 mg PO BID 05/20/19 02:11 Furosemide [Lasix] 20 mg IVPUSH Q6H PRN 05/20/19 08:00 Aspirin 81 mg PO DAILY 05/20/19 11:21 traMADol [Ultram] 50 mg PO Q4H PRN 05/20/19 12:15 Metoprolol Succinate [Toprol XL] 12.5 mg PO DAILY 05/20/19 14:59 Up to Chair [RC] BID Peripheral IV Discontinue [OM.PC] Routine 05/20/19 20:00 Acetaminophen [Tylenol Extra Strength] 1,000 mg PO Q12H Melatonin 3 mg PO BEDTIME traZODone 50 mg PO BEDTIME 05/20/19 Dinner Mechanical Soft Diet [DIET] - Assessment Assessment:: 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 The main issue will be to ensure any increased anxiety/agitation/insomnia is NOT related to pulmonary edema, as d/w reliable clinical staff rn. For this reason, they will monitor her carefully and a prn furosemide order was given. We will continue to also assess daily weight and follow urine output to ensure she remains in euvolemia. Her blood pressure remained stable and Qi tolerated gradual titration of her ACEI and beta alia. Labs indicate improvement in BNP and Cr , and a baseline TSH was obtained as her low levothyroxine dose was not yet restarted, and the literature seems to support therapeutic reduction trials. This could certainly be rechecked and/or her replacement restarted as felt appropriate clinically. Overall, hopefully home medical can help optimize her CPAP fit (possibly with nasal pillows +/- chin strap). - Plan Plan:: Appreciate efforts of Physical/Occupational/Speech therapies. Continue gradual dose titration of Rx for CHF in the setting of CKD. Hopefully will do better on oral sleep options.
[2019-05-20] MEDS: Melatonin 3 MG Tab PO SCH (20:13)
[2019-05-20] MEDS: atorvaSTATin 80 MG Tab PO SCH (20:13)
[2019-05-20] MEDS ORDERED: levETIRAcetam 500 MG/5 ML SDV ONE (21:18)
--- NOTE | 2019-05-21 08:15 | PCM.PN ---
- General Info Date of Service: 05/21/19 Subjective Update: No new complaints. Speech has waxed and waned. Feels like actually slept better without CPAP. Her daughter will be contacting home medical to find better fit. No new issues. Breathing has been stable. Functional Status: Reports: Pain Controlled - Review of Systems Pulmonary: Reports: No Symptoms Cardiovascular: Reports: No Symptoms Gastrointestinal: Denies: Nausea Neurological: Denies: Confusion, Headache Psychiatric: Denies: Anxiety - Patient Data Vitals - Most Recent: Last Vital Signs Temp 99.3 F 05/20/19 12:55 Pulse 82 05/20/19 12:55 Resp 20 05/20/19 12:55 BP 134/67 05/20/19 20:13 Pulse Ox 98 05/20/19 12:55 Weight - Most Recent: 153 lb I&O - Last 24 Hours: Intake & Output 05/20/19 05/21/19 05/21/19 22:59 06:59 14:59 Intake Total 240 200 Output Total 100 200 Balance 140 0 Lab Results Last 24 Hours: Laboratory Results - last 24 hr 05/20/19 05/20/19 Range/Units 14:00 14:00 WBC 8.9 (4.0-11.0) K/uL RBC 3.53 L (3.80-5.80) M/uL Hgb 11.5 (11.5-16.5) g/dL Hct 33.8 L (37.0-47.0) % MCV 96 (76-96) fL MCH 32.6 H (27.0-32.0) pg MCHC 34.0 (31.0-35.0) g/dL RDW 13.8 (11.0-16.0) % Plt Count 183 (150-500) K/uL MPV 9.9 (6.0-10.0) fL Neut % (Auto) 70.0 (45.0-70.0) % Lymph % (Auto) 12.1 L (20.0-40.0) % [place] % (Auto) 17.6 H (3.0-10.0) % Eos % (Auto) 0.2 L (1.0-5.0) % Baso % (Auto) 0.1 (0.0-0.5) % Neut # (Auto) 6.22 (2.00-7.50) K/uL Lymph # (Auto) 1.08 L (1.50-4.00) K/uL [place] # (Auto) 1.57 H (0.20-0.80) K/uL Eos # (Auto) 0.02 L (0.04-0.40) K/uL Baso # (Auto) 0.01 L (0.02-0.10) K/uL Sodium 136 (136-145) mmol/L Potassium 4.3 (3.5-5.1) mmol/L Chloride 100 (98-107) mmol/L Carbon Dioxide 26.7 (21.0-32.0) mmol/L Anion Gap 13.6 (5.0-15.0) mmol/L BUN 20 D (8-26) mg/dL Creatinine 1.11 H (0.55-1.02) mg/dL Est Cr Clr Drug Dosing 30.92 mL/min Estimated GFR (MDRD) 46 L (>60) MLS/MIN BUN/Creatinine Ratio 18.0 (6-25) Glucose 118 H (74-100) mg/dL Calcium 8.6 (8.5-10.1) mg/dL Magnesium 1.8 (1.8-2.4) mg/dL Total Bilirubin 0.8 D (0.0-1.0) mg/dL AST 22 (15-37) U/L ALT 41 (12-78) U/L Alkaline Phosphatase 69 (46-116) U/L B-Natriuretic Peptide 1626 H D (0-450) pg/mL Total Protein 6.6 (6.4-8.2) g/dL Albumin 3.0 L (3.4-5.0) g/dL Globulin 3.6 (2.2-4.2) g/dL Albumin/Globulin Ratio 0.8 (0.8-2.0) TSH, Ultra Sensitive 2.415 (0.358-3.740) uIU/mL Med Orders - Current: Current Medications Acetaminophen (Tylenol Extra Strength) 1,000 mg PO Q12H [facility] Last Admin: 05/20/19 20:13 Dose: 1,000 mg Albuterol/Ipratropium (Duoneb 3.0-0.5 Mg/3 Ml) 3 ml NEB Q4H PRN PRN Reason: Wheezing Last Admin: 05/17/19 15:38 Dose: 3 ml Aspirin (Aspirin) 81 mg PO DAILY [facility] Last Admin: 05/20/19 09:23 Dose: 81 mg Atorvastatin Calcium (Lipitor) 80 mg PO BEDTIME [facility] Last Admin: 05/20/19 20:13 Dose: 80 mg Clopidogrel Bisulfate (Plavix) 75 mg PO DAILY [facility] Last Admin: 05/20/19 09:23 Dose: 75 mg Enoxaparin Sodium (Lovenox) 30 mg SUBCUT Q24H [facility] Last Admin: 05/20/19 14:03 Dose: 30 mg Fluoxetine HCl (Prozac) 20 mg PO DAILY [facility] Last Admin: 05/20/19 09:23 Dose: 20 mg Furosemide (Lasix) 20 mg IVPUSH Q6H PRN PRN Reason: Wheezing Lisinopril (Prinivil) 2.5 mg PO BID [facility] Last Admin: 05/20/19 20:13 Dose: 2.5 mg Melatonin (Melatonin) 3 mg PO BEDTIME [facility] Last Admin: 05/20/19 20:13 Dose: 3 mg Metoprolol Succinate (Toprol Xl) 12.5 mg PO DAILY [facility] Last Admin: 05/20/19 12:39 Dose: 12.5 mg Tramadol HCl (Ultram) 50 mg PO Q4H PRN PRN Reason: PAIN Trazodone HCl (Trazodone) 50 mg PO BEDTIME [facility] Last Admin: 05/20/19 10:13 Dose: 50 mg Discontinued Medications Acetaminophen (Tylenol Extra Strength) 1,000 mg PO Q12H [facility] Last Admin: 05/20/19 12:53 Dose: Not Given Acetaminophen (Tylenol Extra Strength) Confirm Administered Dose 1,000 mg .ROUTE .STK-MED ONE Stop: 05/20/19 12:37 Aspirin (Aspirin) 162 mg PO DAILY [facility] Last Admin: 05/19/19 07:35 Dose: 162 mg Atorvastatin Calcium (Lipitor) 80 mg PO ONETIME ONE Stop: 05/17/19 09:43 Last Admin: 05/17/19 10:30 Dose: 80 mg Clopidogrel Bisulfate (Plavix) 300 mg PO ONETIME ONE Stop: 05/17/19 09:55 Last Admin: 05/17/19 10:30 Dose: 300 mg Clopidogrel Bisulfate (Plavix) Confirm Administered Dose 300 mg .ROUTE .STK-MED ONE Stop: 05/17/19 10:29 Last Admin: 05/17/19 13:15 Dose: Not Given Clopidogrel Bisulfate (Plavix) 75 mg PO DAILY [facility] Doxycycline Hyclate (Vibramycin) Confirm Administered Dose 100 mg .ROUTE .STK- MED ONE Stop: 05/17/19 13:21 Last Admin: 05/17/19 13:48 Dose: Not Given Doxycycline Hyclate (Vibramycin) 100 mg PO Q12H [facility] Last Admin: 05/20/19 11:30 Dose: Not Given Doxycycline Hyclate (Vibramycin) 100 mg PO Q12H [facility] Last Admin: 05/20/19 09:24 Dose: 100 mg Furosemide (Lasix) 20 mg IVPUSH ONETIME ONE Stop: 05/17/19 16:29 Last Admin: 05/17/19 16:55 Dose: 20 mg Furosemide (Lasix) Confirm Administered Dose 20 mg .ROUTE .STK-MED ONE Stop: 05/17/19 16:43 Last Admin: 05/17/19 18:59 Dose: Not Given Furosemide (Lasix) 10 mg IVPUSH NOW ONE Stop: 05/18/19 16:31 Last Admin: 05/18/19 16:40 Dose: 10 mg Doxycycline Hyclate 100 mg/ (Sodium Chloride) 100 mls @ 100 mls/hr IV Q12HR [facility] Sodium Chloride (Normal Saline) 1,000 mls @ 125 mls/hr IV ASDIRECTED [facility] Last Admin: 05/17/19 13:30 Dose: 125 mls/hr Doxycycline Hyclate 100 mg/ (Sodium Chloride) 100 mls @ 100 mls/hr IV Q12HR [facility] Last Admin: 05/18/19 08:58 Dose: 100 mls/hr Levetiracetam (Keppra) Confirm Administered Dose 500 mg .ROUTE .STK-MED ONE Stop: 05/20/19 21:19 Lorazepam (Ativan) 0.5 mg IVPUSH Q4H PRN PRN Reason: Agitation Last Admin: 05/19/19 19:39 Dose: 0.5 mg Lorazepam (Ativan) 0.5 - 1 mg IVPUSH Q2H PRN PRN Reason: Agitation Last Admin: 05/19/19 23:40 Dose: 1 mg Metoprolol Succinate (Toprol Xl) Confirm Administered Dose 25 mg .ROUTE .STK- MED ONE Stop: 05/20/19 12:37 Minocycline HCl (Minocin) 200 mg PO ONETIME ONE Stop: 05/17/19 09:50 Last Admin: 05/20/19 11:30 Dose: Not Given Morphine Sulfate (Morphine) 2 mg IVPUSH Q2H PRN PRN Reason: pain Last Admin: 05/20/19 02:25 Dose: 2 mg Comments:: Vitals noted and blood pressure dipped a bit from prior recent baseline in 150' s. Weight stable. Labs reviewed. - Exam General: Alert, Oriented HEENT: Pupils Equal, EOMI, Mucous Membr. Moist/[place] Lungs: Clear to Auscultation. No: Rales, Rhonchi, Wheezing Cardiovascular: Regular Rate, No Murmurs GI/Abdominal Exam: Normal Bowel Sounds, Soft, Non-Tender Extremities: Normal Inspection, No Pedal Edema, Normal Capillary Refill Skin: Warm, Dry Neurological: No New Focal Deficit Psy/Mental Status: Alert, Normal Affect, Normal Mood Sepsis Event Note - Evaluation Sepsis Screening Result: No Definite Risk - Focused Exam Vital Signs: Vital Signs BP 05/20/19 20:13 134/67 Date Exam was Performed: 05/21/19 Time Exam was Performed: 08:10 - Problem List Review Problem List Initiated/Reviewed/Updated: No - My Orders Last 24 Hours: My Active Orders 05/20/19 08:00 Aspirin 81 mg PO DAILY 05/20/19 11:21 traMADol [Ultram] 50 mg PO Q4H PRN 05/20/19 12:15 Metoprolol Succinate [Toprol XL] 12.5 mg PO DAILY 05/20/19 14:59 Up to Chair [RC] BID Peripheral IV Discontinue [OM.PC] Routine 05/20/19 20:00 Acetaminophen [Tylenol Extra Strength] 1,000 mg PO Q12H Melatonin 3 mg PO BEDTIME traZODone 50 mg PO BEDTIME 05/20/19 Dinner Mechanical Soft Diet [DIET] - Assessment Assessment:: 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 The main issue will be to ensure any increased anxiety/agitation/insomnia is NOT related to pulmonary edema, as d/w reliable staffing and scheduling coordinator. For this reason, they will monitor her carefully and a prn furosemide order was given. We will continue to also assess daily weight and follow urine output to ensure she remains in euvolemia. Her blood pressure remained stable and Qi tolerated gradual titration of her ACEI and beta alia. Labs indicate improvement in BNP and Cr , and a baseline TSH was obtained as her low levothyroxine dose was not yet restarted, and the literature seems to support therapeutic reduction trials. This could certainly be rechecked and/or her replacement restarted as felt appropriate clinically. Overall, hopefully home medical can help optimize her CPAP fit (possibly with nasal pillows +/- chin strap). - Plan Plan:: Appreciate efforts of Physical/Occupational/Speech therapies. Continue gradual dose titration of Rx for CHF in the setting of CKD. Hopefully will do better on oral sleep options as family concerned about her oversedation.
[2019-05-21] MEDS: Aspirin 81 MG Tab.Chew PO SCH (08:37)
[2019-05-21] MEDS: Acetaminophen 500 MG Tab PO SCH ×2 (08:37→19:31)
[2019-05-21] MEDS: FLUoxetine 20 MG Cap PO SCH (08:37)
[2019-05-21] MEDS: Clopidogrel 75 MG Tab PO SCH (08:37)
[2019-05-21] MEDS: Metoprolol Succinate 25 MG Tab.ER PO SCH (08:41)
[2019-05-21] MEDS: Lisinopril 5 MG Tab PO SCH ×2 (08:41→19:31)
[2019-05-21] MEDS ORDERED: traMADol 50 MG Tab PO PRN (10:34)
[2019-05-21] MEDS: Enoxaparin 30 MG/0.3 ML Syringe SUBCUT SCH (14:40)
--- NOTE | 2019-05-21 15:53 | CT ---
DATE OF SERVICE: 05/21/2019 CLINICAL DATA: Increased weakness on hemiparetic side Unenhanced brain CT: Multislice acquisition through the brain without IV contrast was performed. Comparison made to prior exam dated 05/17/2019. There is a fairly well-defined area of decreased attenuation in the left occipital and left posterior parietal lobes. It was not present on the prior exam. It measures 7.0 cm in its maximum axial dimension. There is minimal mass effect associated with it. It is consistent appearance with a subacute infarct. The exam is otherwise unchanged from the prior. No intracranial hemorrhage. MTDD
[2019-05-21] MEDS ORDERED: Morphine 2 MG/ML Syringe IVPUSH PRN (18:00)
--- NOTE | 2019-05-21 18:08 | PCM.PN ---
- General Info Date of Service: 05/21/19 Subjective Update: Patient has new onset chest pain and agitation. She is able to localize her pain to her chest. She is coherent but unable to communicate proficiently due to her recent CVA. - Review of Systems General: Reports: Other (unable to obtain exact ROS due to communication barrier from her CVA) - Patient Data Vitals - Most Recent: Last Vital Signs Temp 36.8 C 05/21/19 09:00 Pulse 69 05/21/19 09:00 Resp 16 05/21/19 09:00 BP 151/78 H 05/21/19 09:00 Pulse Ox 100 05/21/19 09:00 Weight - Most Recent: 69.4 kg I&O - Last 24 Hours: Intake & Output 05/21/19 05/21/19 05/21/19 06:59 14:59 22:59 Intake Total 200 Output Total 200 Balance 0 Med Orders - Current: Current Medications Acetaminophen (Tylenol Extra Strength) 1,000 mg PO Q12H [facility] Last Admin: 05/21/19 08:37 Dose: 1,000 mg Albuterol/Ipratropium (Duoneb 3.0-0.5 Mg/3 Ml) 3 ml NEB Q4H PRN PRN Reason: Wheezing Last Admin: 05/17/19 15:38 Dose: 3 ml Aspirin (Aspirin) 81 mg PO DAILY [facility] Last Admin: 05/21/19 08:37 Dose: 81 mg Atorvastatin Calcium (Lipitor) 80 mg PO BEDTIME [facility] Last Admin: 05/20/19 20:13 Dose: 80 mg Clopidogrel Bisulfate (Plavix) 75 mg PO DAILY [facility] Last Admin: 05/21/19 08:37 Dose: 75 mg Enoxaparin Sodium (Lovenox) 30 mg SUBCUT Q24H [facility] Last Admin: 05/21/19 14:40 Dose: 30 mg Fluoxetine HCl (Prozac) 20 mg PO DAILY [facility] Last Admin: 05/21/19 08:37 Dose: 20 mg Furosemide (Lasix) 20 mg IVPUSH Q6H PRN PRN Reason: Wheezing Lisinopril (Prinivil) 2.5 mg PO BID [facility] Last Admin: 05/21/19 08:41 Dose: 2.5 mg Melatonin (Melatonin) 3 mg PO BEDTIME [facility] Last Admin: 05/20/19 20:13 Dose: 3 mg Metoprolol Succinate (Toprol Xl) 12.5 mg PO DAILY [facility] Last Admin: 05/21/19 08:41 Dose: 12.5 mg Trazodone HCl (Trazodone) 50 mg PO BEDTIME [facility] Last Admin: 05/20/19 10:13 Dose: 50 mg Discontinued Medications Acetaminophen (Tylenol Extra Strength) 1,000 mg PO Q12H [facility] Last Admin: 05/20/19 12:53 Dose: Not Given Acetaminophen (Tylenol Extra Strength) Confirm Administered Dose 1,000 mg .ROUTE .STK-MED ONE Stop: 05/20/19 12:37 Aspirin (Aspirin) 162 mg PO DAILY [facility] Last Admin: 05/19/19 07:35 Dose: 162 mg Atorvastatin Calcium (Lipitor) 80 mg PO ONETIME ONE Stop: 05/17/19 09:43 Last Admin: 05/17/19 10:30 Dose: 80 mg Clopidogrel Bisulfate (Plavix) 300 mg PO ONETIME ONE Stop: 05/17/19 09:55 Last Admin: 05/17/19 10:30 Dose: 300 mg Clopidogrel Bisulfate (Plavix) Confirm Administered Dose 300 mg .ROUTE .STK-MED ONE Stop: 05/17/19 10:29 Last Admin: 05/17/19 13:15 Dose: Not Given Clopidogrel Bisulfate (Plavix) 75 mg PO DAILY [facility] Doxycycline Hyclate (Vibramycin) Confirm Administered Dose 100 mg .ROUTE .STK- MED ONE Stop: 05/17/19 13:21 Last Admin: 05/17/19 13:48 Dose: Not Given Doxycycline Hyclate (Vibramycin) 100 mg PO Q12H [facility] Last Admin: 05/20/19 11:30 Dose: Not Given Doxycycline Hyclate (Vibramycin) 100 mg PO Q12H [facility] Last Admin: 05/20/19 09:24 Dose: 100 mg Furosemide (Lasix) 20 mg IVPUSH ONETIME ONE Stop: 05/17/19 16:29 Last Admin: 05/17/19 16:55 Dose: 20 mg Furosemide (Lasix) Confirm Administered Dose 20 mg .ROUTE .STK-MED ONE Stop: 05/17/19 16:43 Last Admin: 05/17/19 18:59 Dose: Not Given Furosemide (Lasix) 10 mg IVPUSH NOW ONE Stop: 05/18/19 16:31 Last Admin: 05/18/19 16:40 Dose: 10 mg Doxycycline Hyclate 100 mg/ (Sodium Chloride) 100 mls @ 100 mls/hr IV Q12HR [facility] Sodium Chloride (Normal Saline) 1,000 mls @ 125 mls/hr IV ASDIRECTED [facility] Last Admin: 05/17/19 13:30 Dose: 125 mls/hr Doxycycline Hyclate 100 mg/ (Sodium Chloride) 100 mls @ 100 mls/hr IV Q12HR [facility] Last Admin: 05/18/19 08:58 Dose: 100 mls/hr Levetiracetam (Keppra) Confirm Administered Dose 500 mg .ROUTE .STK-MED ONE Stop: 05/20/19 21:19 Lorazepam (Ativan) 0.5 mg IVPUSH Q4H PRN PRN Reason: Agitation Last Admin: 05/19/19 19:39 Dose: 0.5 mg Lorazepam (Ativan) 0.5 - 1 mg IVPUSH Q2H PRN PRN Reason: Agitation Last Admin: 05/19/19 23:40 Dose: 1 mg Metoprolol Succinate (Toprol Xl) Confirm Administered Dose 25 mg .ROUTE .STK- MED ONE Stop: 05/20/19 12:37 Minocycline HCl (Minocin) 200 mg PO ONETIME ONE Stop: 05/17/19 09:50 Last Admin: 05/20/19 11:30 Dose: Not Given Morphine Sulfate (Morphine) 2 mg IVPUSH Q2H PRN PRN Reason: pain Last Admin: 05/20/19 02:25 Dose: 2 mg Tramadol HCl (Ultram) 50 mg PO Q4H PRN PRN Reason: PAIN - Exam General: Other (inability to speak in sentences or words, mostly garbled words, able to nod and say no. ) Neck: Supple Lungs: Clear to Auscultation, Normal Respiratory Effort Cardiovascular: Regular Rate, Regular Rhythm GI/Abdominal Exam: Normal Bowel Sounds, Soft, Non-Tender Neurological: No New Focal Deficit Psy/Mental Status: Anxious, Agitated Sepsis Event Note - Evaluation Sepsis Screening Result: No Definite Risk - Focused Exam Vital Signs: Vital Signs Temp Pulse Pulse Resp BP BP Pulse Ox 05/21/19 09:00 36.8 C 69 16 151/78 H 100 05/21/19 08:41 69 151/78 H Date Exam was Performed: 05/21/19 Time Exam was Performed: 18:05 - Problem List & Annotations (1) Chest pain at rest SNOMED Code(s): 6609956 Code(s): R07.9 - CHEST PAIN, UNSPECIFIED Status: Acute Priority: High Current Visit: Yes - Problem List Review Problem List Initiated/Reviewed/Updated: Yes - My Orders Last 24 Hours: My Active Orders 05/21/19 18:04 CBC WITH AUTO DIFF [HEME] Stat COMPREHENSIVE METABOLIC PN,CMP [CHEM] Stat 05/21/19 18:05 TROPONIN I [CHEM] Stat - Assessment Assessment:: 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 The main issue will be to ensure any increased anxiety/agitation/insomnia is NOT related to pulmonary edema, as d/w reliable tax staff accountant. For this reason, they will monitor her carefully and a prn furosemide order was given. We will continue to also assess daily weight and follow urine output to ensure she remains in euvolemia. Her blood pressure remained stable and Qi tolerated gradual titration of her ACEI and beta alia. Labs indicate improvement in BNP and Cr , and a baseline TSH was obtained as her low levothyroxine dose was not yet restarted, and the literature seems to support therapeutic reduction trials. This could certainly be rechecked and/or her replacement restarted as felt appropriate clinically. Overall, hopefully home medical can help optimize her CPAP fit (possibly with nasal pillows +/- chin strap). - Plan Plan:: Appreciate efforts of Physical/Occupational/Speech therapies. Continue gradual dose titration of Rx for CHF in the setting of CKD. Hopefully will do better on oral sleep options as family concerned about her oversedation. 05/21/19 1800 start chest pain protocol. We will discuss with family when they arrive or in the AM depending on results.
[2019-05-21] MEDS ORDERED: Morphine 2 MG/ML Syringe ONE (18:24)
[2019-05-21] MEDS: traZODone 50 MG Tab PO SCH (19:31)
[2019-05-21] MEDS: atorvaSTATin 80 MG Tab PO SCH (19:31)
[2019-05-21] MEDS: Melatonin 3 MG Tab PO SCH (19:32)
[2019-05-22] MEDS: Aspirin 81 MG Tab.Chew PO SCH (08:13)
[2019-05-22] MEDS: Lisinopril 5 MG Tab PO SCH ×2 (08:13→20:06)
[2019-05-22] MEDS: FLUoxetine 20 MG Cap PO SCH (08:13)
[2019-05-22] MEDS: Acetaminophen 500 MG Tab PO SCH ×2 (08:13→20:06)
[2019-05-22] MEDS: Clopidogrel 75 MG Tab PO SCH (08:13)
[2019-05-22] MEDS: Metoprolol Succinate 25 MG Tab.ER PO SCH (08:13)
[2019-05-22] MEDS: Enoxaparin 30 MG/0.3 ML Syringe SUBCUT SCH (14:20)
[2019-05-22] MEDS ORDERED: Morphine 2 MG/ML Syringe SUBCUT PRN ×2 (14:59→15:29)
[2019-05-22] MEDS: Melatonin 3 MG Tab PO SCH (20:05)
[2019-05-22] MEDS: atorvaSTATin 80 MG Tab PO SCH (20:06)
[2019-05-22] MEDS: traZODone 50 MG Tab PO SCH (20:06)
[2019-05-23] MEDS: Clopidogrel 75 MG Tab PO SCH (07:31)
[2019-05-23] MEDS: Acetaminophen 500 MG Tab PO SCH (07:31)
[2019-05-23] MEDS: FLUoxetine 20 MG Cap PO SCH (07:32)
[2019-05-23] MEDS: Lisinopril 5 MG Tab PO SCH (07:32)
[2019-05-23] MEDS: Aspirin 81 MG Tab.Chew PO SCH (07:32)
[2019-05-23] MEDS: Metoprolol Succinate 25 MG Tab.ER PO SCH (07:33)
--- NOTE | 2019-05-23 08:42 | PCM.PN ---
- General Info Date of Service: 05/22/19 Subjective Update: Patient continues to have worsening hemiparesis. She has aphasia and we are unable to communicate very well. She can continue to localize pain at times but inconsistently. - Patient Data Vitals - Most Recent: Last Vital Signs Temp 36.4 C 05/23/19 07:38 Pulse 67 05/23/19 07:38 Resp 20 05/23/19 07:38 BP 143/70 H 05/23/19 07:38 Pulse Ox 97 05/23/19 07:38 Weight - Most Recent: 69.4 kg I&O - Last 24 Hours: Intake & Output 05/22/19 05/23/19 05/23/19 22:59 06:59 14:59 Intake Total 500 120 Output Total 300 450 Balance 200 -330 Lab Results Last 24 Hours: Laboratory Results - last 24 hr 05/22/19 05/22/19 Range/Units 11:52 11:52 WBC 6.1 D (4.0-11.0) K/uL RBC 3.75 L (3.80-5.80) M/uL Hgb 12.1 (11.5-16.5) g/dL Hct 35.8 L (37.0-47.0) % MCV 96 (76-96) fL MCH 32.3 H (27.0-32.0) pg MCHC 33.8 (31.0-35.0) g/dL RDW 13.8 (11.0-16.0) % Plt Count 217 (150-500) K/uL MPV 9.6 (6.0-10.0) fL Neut % (Auto) 71.8 H (45.0-70.0) % Lymph % (Auto) 10.0 L (20.0-40.0) % [place] % (Auto) 17.1 H (3.0-10.0) % Eos % (Auto) 0.8 L (1.0-5.0) % Baso % (Auto) 0.3 (0.0-0.5) % Neut # (Auto) 4.37 (2.00-7.50) K/uL Lymph # (Auto) 0.61 L (1.50-4.00) K/uL [place] # (Auto) 1.04 H (0.20-0.80) K/uL Eos # (Auto) 0.05 (0.04-0.40) K/uL Baso # (Auto) 0.02 (0.02-0.10) K/uL Sodium 138 (136-145) mmol/L Potassium 4.0 (3.5-5.1) mmol/L Chloride 100 (98-107) mmol/L Carbon Dioxide 28.0 D (21.0-32.0) mmol/L Anion Gap 14.0 (5.0-15.0) mmol/L BUN 33 H (8-26) mg/dL Creatinine 1.48 H (0.55-1.02) mg/dL Est Cr Clr Drug Dosing 23.19 mL/min Estimated GFR (MDRD) 33 L (>60) MLS/MIN BUN/Creatinine Ratio 22.3 (6-25) Glucose 112 H (74-100) mg/dL Calcium 9.0 (8.5-10.1) mg/dL Med Orders - Current: Current Medications Acetaminophen (Tylenol Extra Strength) 1,000 mg PO Q12H [facility] Last Admin: 05/23/19 07:31 Dose: 1,000 mg Albuterol/Ipratropium (Duoneb 3.0-0.5 Mg/3 Ml) 3 ml NEB Q4H PRN PRN Reason: Wheezing Last Admin: 05/17/19 15:38 Dose: 3 ml Aspirin (Aspirin) 81 mg PO DAILY [facility] Last Admin: 05/23/19 07:32 Dose: 81 mg Atorvastatin Calcium (Lipitor) 80 mg PO BEDTIME [facility] Last Admin: 05/22/19 20:06 Dose: 80 mg Clopidogrel Bisulfate (Plavix) 75 mg PO DAILY [facility] Last Admin: 05/23/19 07:31 Dose: 75 mg Enoxaparin Sodium (Lovenox) 30 mg SUBCUT Q24H [facility] Last Admin: 05/22/19 14:20 Dose: 30 mg Fluoxetine HCl (Prozac) 20 mg PO DAILY [facility] Last Admin: 05/23/19 07:32 Dose: 20 mg Furosemide (Lasix) 20 mg IVPUSH Q6H PRN PRN Reason: Wheezing Last Admin: 05/21/19 18:55 Dose: 20 mg Lisinopril (Prinivil) 2.5 mg PO BID [facility] Last Admin: 05/23/19 07:32 Dose: 2.5 mg Melatonin (Melatonin) 3 mg PO BEDTIME [facility] Last Admin: 05/22/19 20:05 Dose: 3 mg Metoprolol Succinate (Toprol Xl) 12.5 mg PO DAILY [facility] Last Admin: 05/23/19 07:33 Dose: 12.5 mg Morphine Sulfate (Morphine) 0.5 - 1 mg SUBCUT Q6H PRN PRN Reason: Pain Last Admin: 05/23/19 08:34 Dose: 0.5 mg Trazodone HCl (Trazodone) 50 mg PO BEDTIME [facility] Last Admin: 05/22/19 20:06 Dose: 50 mg Discontinued Medications Acetaminophen (Tylenol Extra Strength) 1,000 mg PO Q12H [facility] Last Admin: 05/20/19 12:53 Dose: Not Given Acetaminophen (Tylenol Extra Strength) Confirm Administered Dose 1,000 mg .ROUTE .STK-MED ONE Stop: 05/20/19 12:37 Aspirin (Aspirin) 162 mg PO DAILY [facility] Last Admin: 05/19/19 07:35 Dose: 162 mg Atorvastatin Calcium (Lipitor) 80 mg PO ONETIME ONE Stop: 05/17/19 09:43 Last Admin: 05/17/19 10:30 Dose: 80 mg Clopidogrel Bisulfate (Plavix) 300 mg PO ONETIME ONE Stop: 05/17/19 09:55 Last Admin: 05/17/19 10:30 Dose: 300 mg Clopidogrel Bisulfate (Plavix) Confirm Administered Dose 300 mg .ROUTE .STK-MED ONE Stop: 05/17/19 10:29 Last Admin: 05/17/19 13:15 Dose: Not Given Clopidogrel Bisulfate (Plavix) 75 mg PO DAILY [facility] Doxycycline Hyclate (Vibramycin) Confirm Administered Dose 100 mg .ROUTE .STK- MED ONE Stop: 05/17/19 13:21 Last Admin: 05/17/19 13:48 Dose: Not Given Doxycycline Hyclate (Vibramycin) 100 mg PO Q12H [facility] Last Admin: 05/20/19 11:30 Dose: Not Given Doxycycline Hyclate (Vibramycin) 100 mg PO Q12H [facility] Last Admin: 05/20/19 09:24 Dose: 100 mg Furosemide (Lasix) 20 mg IVPUSH ONETIME ONE Stop: 05/17/19 16:29 Last Admin: 02/20/20 16:55 Dose: 20 mg Furosemide (Lasix) Confirm Administered Dose 20 mg .ROUTE .STK-MED ONE Stop: 05/17/19 16:43 Last Admin: 05/17/19 18:59 Dose: Not Given Furosemide (Lasix) 10 mg IVPUSH NOW ONE Stop: 05/18/19 16:31 Last Admin: 05/18/19 16:40 Dose: 10 mg Doxycycline Hyclate 100 mg/ (Sodium Chloride) 100 mls @ 100 mls/hr IV Q12HR [facility] Sodium Chloride (Normal Saline) 1,000 mls @ 125 mls/hr IV ASDIRECTED [facility] Last Admin: 05/17/19 13:30 Dose: 125 mls/hr Doxycycline Hyclate 100 mg/ (Sodium Chloride) 100 mls @ 100 mls/hr IV Q12HR [facility] Last Admin: 05/18/19 08:58 Dose: 100 mls/hr Levetiracetam (Keppra) Confirm Administered Dose 500 mg .ROUTE .STK-MED ONE Stop: 05/20/19 21:19 Last Admin: 05/21/19 21:04 Dose: Not Given Lorazepam (Ativan) 0.5 mg IVPUSH Q4H PRN PRN Reason: Agitation Last Admin: 05/19/19 19:39 Dose: 0.5 mg Lorazepam (Ativan) 0.5 - 1 mg IVPUSH Q2H PRN PRN Reason: Agitation Last Admin: 05/19/19 23:40 Dose: 1 mg Metoprolol Succinate (Toprol Xl) Confirm Administered Dose 25 mg .ROUTE .STK- MED ONE Stop: 05/20/19 12:37 Minocycline HCl (Minocin) 200 mg PO ONETIME ONE Stop: 05/17/19 09:50 Last Admin: 05/20/19 11:30 Dose: Not Given Morphine Sulfate (Morphine) 2 mg IVPUSH Q2H PRN PRN Reason: pain Last Admin: 05/20/19 02:25 Dose: 2 mg Morphine Sulfate (Morphine) Confirm Administered Dose 2 mg .ROUTE .STK-MED ONE Stop: 05/21/19 18:25 Last Admin: 05/21/19 18:25 Dose: 0.5 mg Morphine Sulfate (Morphine) 1 mg IVPUSH Q6H PRN PRN Reason: Pain Last Admin: 05/22/19 08:13 Dose: 0.5 mg Morphine Sulfate (Morphine) 0.5 mg SUBCUT Q6H PRN PRN Reason: Pain Tramadol HCl (Ultram) 50 mg PO Q4H PRN PRN Reason: PAIN Sepsis Event Note - Evaluation Sepsis Screening Result: No Definite Risk - Focused Exam Vital Signs: Vital Signs Temp Pulse Pulse Resp BP BP Pulse Ox 05/23/19 07:38 36.4 C 67 20 143/70 H 97 05/23/19 07:33 67 143/70 H 05/23/19 07:32 143/70 H Date Exam was Performed: 05/25/19 Time Exam was Performed: 11:05 - Problem List & Annotations (1) Chest pain at rest SNOMED Code(s): 1384794 Code(s): R07.9 - CHEST PAIN, UNSPECIFIED Status: Acute Priority: High - My Orders Last 24 Hours: My Active Orders 05/22/19 15:29 Morphine 0.5 - 1 mg SUBCUT Q6H PRN - Assessment Assessment:: 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 The main issue will be to ensure any increased anxiety/agitation/insomnia is NOT related to pulmonary edema, as d/w reliable community health nurse staff. For this reason, they will monitor her carefully and a prn furosemide order was given. We will continue to also assess daily weight and follow urine output to ensure she remains in euvolemia. Her blood pressure remained stable and Qi tolerated gradual titration of her ACEI and beta alia. Labs indicate improvement in BNP and Cr , and a baseline TSH was obtained as her low levothyroxine dose was not yet restarted, and the literature seems to support therapeutic reduction trials. This could certainly be rechecked and/or her replacement restarted as felt appropriate clinically. Overall, hopefully home medical can help optimize her CPAP fit (possibly with nasal pillows +/- chin strap). - Plan Plan:: Appreciate efforts of Physical/Occupational/Speech therapies. Continue gradual dose titration of Rx for CHF in the setting of CKD. Hopefully will do better on oral sleep options as family concerned about her oversedation. 05/21/19 1800 start chest pain protocol. We will discuss with family when they arrive or in the AM depending on results.
[2019-05-23] MEDS ORDERED: Ciprofloxacin 500 MG Tab PO SCH (09:30)
--- NOTE | 2019-05-23 09:36 | PCM.DCSUM1 ---
Discharge Summary - Discharge Data Discharge Date: 05/23/19 Discharge Disposition: DC/Tfer W/I Hosp To Swing [facility] Condition: Stable - Referral to Home Health Primary Care Physician: PCP None - Discharge Diagnosis/Problem(s) (1) Chest pain at rest SNOMED Code(s): 8628189 ICD Code: R07.9 - CHEST PAIN, UNSPECIFIED Status: Acute Priority: High Current Visit: Yes - Patient Summary/Data Consults: Consultations 05/17/19 11:36 Consult to Physical Therapy [PT Evaluation and Treatment] [CONS] Routine Please Evaluate and Treat. PT Reason for Consult: Strengthening This query below is only for informational purposes and is not editable. Admission Diagnosis/Problem: CVA, Cerebrovascular accident 05/17/19 11:48 OT Evaluation and Treatment [CONS] Routine Please Evaluate and Treat. OT Reason for Consult: Other (Type Response) Pending Discharge: CVA This query below is only for informational purposes and is not editable. Admission Diagnosis/Problem: CVA, Cerebrovascular accident 05/18/19 09:47 Consult to Speech Language Pathology [LAMPS TE[employer] AND INSPECTOR Evaluation and Treatment] [CONS] Routine Please Evaluate and Treat [employer]AM[employer] TE[employer] INSPECTOR Reason for Consult: CVA This query below is only for informational purposes and is not editable. Admission Diagnosis/Problem: CVA, Cerebrovascular accident - Discharge Plan *PRESCRIPTION DRUG MONITORING PROGRAM REVIEWED*: No *COPY OF PRESCRIPTION DRUG MONITORING REPORT IN PATIENT RAFFI: No Home Medications: Home Meds Furosemide 20 mg PO DAILY 12/17/16 [History] Levothyroxine 25 mcg PO ACBREAKFAST 12/17/16 [History] Lisinopril 10 mg PO QPM 12/17/16 [History] Lisinopril 20 mg PO QAM 12/17/16 [History] Cholecalciferol (Vitamin D3) [Vitamin D3] 2,000 unit PO DAILY 02/23/18 [History] Metoprolol Tartrate 50 mg PO BID 02/23/18 [History] polyethylene glycoL 3350 [MiraLAX] 17 gm PO QPM 02/23/18 [History] Acetaminophen [Tylenol Extra Strength] 1,000 mg PO Q12H tablet 05/23/19 [Rx] Albuterol/Ipratropium [DuoNeb 3.0-0.5 MG/3 ML] 3 ml NEB Q4H PRN neb 05/23/19 [ Rx] Aspirin 81 mg PO DAILY tab.chew 05/23/19 [Rx] Ciprofloxacin [Ciprofloxacin HCl] 500 mg PO BID tablet 05/23/19 [Rx] Clopidogrel [Plavix] 75 mg PO DAILY tablet 05/23/19 [Rx] Enoxaparin [Lovenox] 30 mg SUBCUT Q24H syringe 05/23/19 [Rx] Furosemide [Lasix] 20 mg IVPUSH Q6H PRN vial 05/23/19 [Rx] Melatonin 3 mg PO BEDTIME tablet 05/23/19 [Rx] Metoprolol Succinate [Toprol XL] 12.5 mg PO DAILY tab.er 05/23/19 [Rx] atorvaSTATin [Lipitor] 80 mg PO BEDTIME tablet 05/23/19 [Rx] lisinopriL [Prinivil] 2.5 mg PO BID tablet 05/23/19 [Rx] Forms: ED Department Discharge Referrals: PCP,None [Primary Care Provider] - - Patient Data Vitals - Most Recent: Last Vital Signs Temp 36.4 C 05/23/19 07:38 Pulse 67 05/23/19 07:38 Resp 20 05/23/19 07:38 BP 143/70 H 05/23/19 07:38 Pulse Ox 97 05/23/19 07:38 Weight - Most Recent: 69.4 kg I&O - Last 24 hours: Intake & Output 05/22/19 05/23/19 05/23/19 22:59 06:59 14:59 Intake Total 500 120 Output Total 300 450 Balance 200 -330 Lab Results - Last 24 hrs: Laboratory Results - last 24 hr 05/22/19 05/22/19 Range/Units 11:52 11:52 WBC 6.1 D (4.0-11.0) K/uL RBC 3.75 L (3.80-5.80) M/uL Hgb 12.1 (11.5-16.5) g/dL Hct 35.8 L (37.0-47.0) % MCV 96 (76-96) fL MCH 32.3 H (27.0-32.0) pg MCHC 33.8 (31.0-35.0) g/dL RDW 13.8 (11.0-16.0) % Plt Count 217 (150-500) K/uL MPV 9.6 (6.0-10.0) fL Neut % (Auto) 71.8 H (45.0-70.0) % Lymph % (Auto) 10.0 L (20.0-40.0) % [place] % (Auto) 17.1 H (3.0-10.0) % Eos % (Auto) 0.8 L (1.0-5.0) % Baso % (Auto) 0.3 (0.0-0.5) % Neut # (Auto) 4.37 (2.00-7.50) K/uL Lymph # (Auto) 0.61 L (1.50-4.00) K/uL [place] # (Auto) 1.04 H (0.20-0.80) K/uL Eos # (Auto) 0.05 (0.04-0.40) K/uL Baso # (Auto) 0.02 (0.02-0.10) K/uL Sodium 138 (136-145) mmol/L Potassium 4.0 (3.5-5.1) mmol/L Chloride 100 (98-107) mmol/L Carbon Dioxide 28.0 D (21.0-32.0) mmol/L Anion Gap 14.0 (5.0-15.0) mmol/L BUN 33 H (8-26) mg/dL Creatinine 1.48 H (0.55-1.02) mg/dL Est Cr Clr Drug Dosing 23.19 mL/min Estimated GFR (MDRD) 33 L (>60) MLS/MIN BUN/Creatinine Ratio 22.3 (6-25) Glucose 112 H (74-100) mg/dL Calcium 9.0 (8.5-10.1) mg/dL Med Orders - Current: Current Medications Acetaminophen (Tylenol Extra Strength) 1,000 mg PO Q12H [facility] Last Admin: 05/23/19 07:31 Dose: 1,000 mg Albuterol/Ipratropium (Duoneb 3.0-0.5 Mg/3 Ml) 3 ml NEB Q4H PRN PRN Reason: Wheezing Last Admin: 05/17/19 15:38 Dose: 3 ml Aspirin (Aspirin) 81 mg PO DAILY [facility] Last Admin: 05/23/19 07:32 Dose: 81 mg Atorvastatin Calcium (Lipitor) 80 mg PO BEDTIME [facility] Last Admin: 05/22/19 20:06 Dose: 80 mg Cholecalciferol (Vitamin D3) 2,000 unit PO DAILY [facility] Ciprofloxacin (Ciprofloxacin Hcl) 500 mg PO BID [facility] Stop: 05/27/19 20:01 Clopidogrel Bisulfate (Plavix) 75 mg PO DAILY [facility] Last Admin: 05/23/19 07:31 Dose: 75 mg Enoxaparin Sodium (Lovenox) 30 mg SUBCUT Q24H [facility] Last Admin: 05/22/19 14:20 Dose: 30 mg Fluoxetine HCl (Prozac) 20 mg PO DAILY [facility] Last Admin: 05/23/19 07:32 Dose: 20 mg Furosemide (Lasix) 20 mg IVPUSH Q6H PRN PRN Reason: Wheezing Last Admin: 05/21/19 18:55 Dose: 20 mg Furosemide (Lasix) 20 mg PO DAILY [facility] Levothyroxine Sodium (Levothyroxine) 25 mcg PO ACBREAKFAST [facility] Lisinopril (Prinivil) 2.5 mg PO BID [facility] Last Admin: 05/23/19 07:32 Dose: 2.5 mg Lisinopril (Prinivil) 10 mg PO QPM [facility] Lisinopril (Prinivil) 20 mg PO QAM [facility] Melatonin (Melatonin) 3 mg PO BEDTIME [facility] Last Admin: 05/22/19 20:05 Dose: 3 mg Metoprolol Succinate (Toprol Xl) 12.5 mg PO DAILY [facility] Last Admin: 05/23/19 07:33 Dose: 12.5 mg Metoprolol Tartrate (Lopressor) 50 mg PO BID [facility] Morphine Sulfate (Morphine) 0.5 - 1 mg SUBCUT Q6H PRN PRN Reason: Pain Last Admin: 05/23/19 08:34 Dose: 0.5 mg Polyethylene Glycol (Miralax) 17 gm PO QPM [facility] Trazodone HCl (Trazodone) 50 mg PO BEDTIME [facility] Last Admin: 05/22/19 20:06 Dose: 50 mg Discontinued Medications Acetaminophen (Tylenol Extra Strength) 1,000 mg PO Q12H [facility] Last Admin: 05/20/19 12:53 Dose: Not Given Acetaminophen (Tylenol Extra Strength) Confirm Administered Dose 1,000 mg .ROUTE .STK-MED ONE Stop: 05/20/19 12:37 Aspirin (Aspirin) 162 mg PO DAILY [facility] Last Admin: 05/19/19 07:35 Dose: 162 mg Atorvastatin Calcium (Lipitor) 80 mg PO ONETIME ONE Stop: 05/17/19 09:43 Last Admin: 05/17/19 10:30 Dose: 80 mg Clopidogrel Bisulfate (Plavix) 300 mg PO ONETIME ONE Stop: 05/17/19 09:55 Last Admin: 05/17/19 10:30 Dose: 300 mg Clopidogrel Bisulfate (Plavix) Confirm Administered Dose 300 mg .ROUTE .STK-MED ONE Stop: 05/17/19 10:29 Last Admin: 05/17/19 13:15 Dose: Not Given Clopidogrel Bisulfate (Plavix) 75 mg PO DAILY [facility] Doxycycline Hyclate (Vibramycin) Confirm Administered Dose 100 mg .ROUTE .STK- MED ONE Stop: 05/17/19 13:21 Last Admin: 05/17/19 13:48 Dose: Not Given Doxycycline Hyclate (Vibramycin) 100 mg PO Q12H [facility] Last Admin: 05/20/19 11:30 Dose: Not Given Doxycycline Hyclate (Vibramycin) 100 mg PO Q12H [facility] Last Admin: 05/20/19 09:24 Dose: 100 mg Furosemide (Lasix) 20 mg IVPUSH ONETIME ONE Stop: 05/17/19 16:29 Last Admin: 05/17/19 16:55 Dose: 20 mg Furosemide (Lasix) Confirm Administered Dose 20 mg .ROUTE .STK-MED ONE Stop: 05/17/19 16:43 Last Admin: 05/17/19 18:59 Dose: Not Given Furosemide (Lasix) 10 mg IVPUSH NOW ONE Stop: 05/18/19 16:31 Last Admin: 05/18/19 16:40 Dose: 10 mg Doxycycline Hyclate 100 mg/ (Sodium Chloride) 100 mls @ 100 mls/hr IV Q12HR [facility] Sodium Chloride (Normal Saline) 1,000 mls @ 125 mls/hr IV ASDIRECTED [facility] Last Admin: 05/17/19 13:30 Dose: 125 mls/hr Doxycycline Hyclate 100 mg/ (Sodium Chloride) 100 mls @ 100 mls/hr IV Q12HR [facility] Last Admin: 05/18/19 08:58 Dose: 100 mls/hr Levetiracetam (Keppra) Confirm Administered Dose 500 mg .ROUTE .STK-MED ONE Stop: 05/20/19 21:19 Last Admin: 05/21/19 21:04 Dose: Not Given Lorazepam (Ativan) 0.5 mg IVPUSH Q4H PRN PRN Reason: Agitation Last Admin: 05/19/19 19:39 Dose: 0.5 mg Lorazepam (Ativan) 0.5 - 1 mg IVPUSH Q2H PRN PRN Reason: Agitation Last Admin: 05/19/19 23:40 Dose: 1 mg Metoprolol Succinate (Toprol Xl) Confirm Administered Dose 25 mg .ROUTE .STK- MED ONE Stop: 05/20/19 12:37 Minocycline HCl (Minocin) 200 mg PO ONETIME ONE Stop: 05/17/19 09:50 Last Admin: 05/20/19 11:30 Dose: Not Given Morphine Sulfate (Morphine) 2 mg IVPUSH Q2H PRN PRN Reason: pain Last Admin: 05/20/19 02:25 Dose: 2 mg Morphine Sulfate (Morphine) Confirm Administered Dose 2 mg .ROUTE .STK-MED ONE Stop: 05/21/19 18:25 Last Admin: 05/21/19 18:25 Dose: 0.5 mg Morphine Sulfate (Morphine) 1 mg IVPUSH Q6H PRN PRN Reason: Pain Last Admin: 05/22/19 08:13 Dose: 0.5 mg Morphine Sulfate (Morphine) 0.5 mg SUBCUT Q6H PRN PRN Reason: Pain Tramadol HCl (Ultram) 50 mg PO Q4H PRN PRN Reason: PAIN
[2019-05-23] MEDS ORDERED: Lisinopril 20 MG Tab PO SCH (20:00)
[2019-05-23] MEDS ORDERED: Polyethylene Glycol 3350 Powder 17 GM Packet PO SCH (20:00)
[2019-05-23] MEDS ORDERED: Metoprolol Tartrate 50 MG Tab PO SCH (20:00)
[2019-05-24] MEDS ORDERED: Levothyroxine 25 MCG Tab PO SCH (07:00)
[2019-05-24] MEDS ORDERED: Furosemide 20 MG Tab PO SCH (08:00)
[2019-05-24] MEDS ORDERED: Lisinopril 20 MG Tab PO SCH (08:00)
[2019-05-24] MEDS ORDERED: Cholecalciferol (Vitamin D3) 2,000 Unit Cap PO SCH (08:00)
== END 2019-05-23 10:33 | disposition swing bed (61) | DRG 65 ==
LOC: LB.ED 09:27 → LB.MS 11:08
PROVIDERS: ADMIT Family Medicine; ATTEND Family Medicine
DX: I63.9 Cerebral infarction, unspecified (principal); H91.90 Unspecified hearing loss, unspecified ear; H54.7 Unspecified visual loss; I10 Essential (primary) hypertension; K57.90 Diverticulosis of intestine, part unspecified, without perforation or abscess without bleeding; M19.90 Unspecified osteoarthritis, unspecified site; G81.94 Hemiplegia, unspecified affecting left nondominant side; I13.0 Hypertensive heart and chronic kidney disease with heart failure and stage 1 through stage 4 chronic kidney disease, or unspecified chronic kidney disease; R47.1 Dysarthria and anarthria; R45.1 Restlessness and agitation; Z79.899 Other long term (current) drug therapy; Z88.6 Allergy status to analgesic agent; Z66 Do not resuscitate; R07.9 Chest pain, unspecified; N18.9 Chronic kidney disease, unspecified; I50.9 Heart failure, unspecified; E03.9 Hypothyroidism, unspecified; R29.717 NIHSS score 17; Z88.8 Allergy status to other drugs, medicaments and biological substances; Z88.2 Allergy status to sulfonamides; Z88.5 Allergy status to narcotic agent; Z79.890 Hormone replacement therapy; Z90.49 Acquired absence of other specified parts of digestive tract; Z90.710 Acquired absence of both cervix and uterus
CPT/HCPCS: 36415; 70450; 71045; 80048; 80053; 81001; 82962; 83735; 83880; 84443; 84484; 85025; 85610; 85730; 87086; 87088; 87186; 92507-GN; 92523-GN; 93005; 97140-GO; 97161-GP; 97165-GO; 97530-GO; 97530-GP; 97535-GO; 99285-25; A9270-GY; J1650; J1940; J2060; J2270; J3490; J7030; J7050; J7620-GY

== ENCOUNTER 2019-05-22 14:51 | Inpatient (IN) | payer MEDICARE, MEDICAID ==
[2019-05-23] MEDS ORDERED: Tuberculin, PPD 5 Units/0.1 ML 1 ML MDV IDERM ONE (09:33)
--- NOTE | 2019-05-23 09:36 | PCM.HP.2 ---
H&P History of Present Illness - General Date of Service: 05/23/19 Admit Problem/Dx: Admission Diagnosis/Problem Admission Diagnosis/Problem Weakness Source of Information: Patient History Limitations: Reports: No Limitations - History of Present Illness Initial Comments - Free Text/Narative: This is a 89yo F here for admission to swing bed for rehabilitation due to a recent CVA causing right sided hemiparesis. She was living in an assisted living center independently prior to this incident. She is in good spirits and would like to recover as much as possible with the Physical and Occupational rehabilitation. She denies any new issues at this time. Onset of Symptoms: Reports: Sudden Duration of Symptoms: Reports: Constant Location: Reports: Face, Upper Extremity, Right, Lower Extremity, Right Severity: Severe Improves with: Reports: None Worsens with: Reports: None Associated Symptoms: Reports: Weakness - Related Data Allergies/Adverse Reactions: Allergies Allergy/AdvReac Type Severity Reaction Status Date / Time amlodipine [From Norvasc] Allergy Cannot Verified 05/23/19 14:39 Remember celecoxib [From Celebrex] Allergy Cannot Verified 05/23/19 14:39 Remember duloxetine [From Cymbalta] Allergy Cannot Verified 05/23/19 14:39 Remember fentanyl Allergy Cannot Verified 05/23/19 14:39 Remember hydrochlorothiazide Allergy Cannot Verified 05/23/19 14:39 [From Hyzaar] Remember losartan [From Hyzaar] Allergy Cannot Verified 05/23/19 14:39 Remember metronidazole [From Flagyl] Allergy Cannot Verified 05/23/19 14:39 Remember prednisone Allergy Cannot Verified 05/23/19 14:39 Remember Sulfa (Sulfonamide Allergy Diarrhea Verified 05/23/19 14:39 Antibiotics) tramadol [From Ultram] Allergy Cannot Verified 05/23/19 14:39 Remember Home Medications: Home Meds Cholecalciferol (Vitamin D3) [Vitamin D3] 2,000 unit PO DAILY 02/23/18 [History] Acetaminophen [Tylenol Extra Strength] 1,000 mg PO Q12H tablet 05/23/19 [Rx] Albuterol/Ipratropium [DuoNeb 3.0-0.5 MG/3 ML] 3 ml NEB Q4H PRN neb 05/23/19 [ Rx] Aspirin 81 mg PO DAILY tab.chew 05/23/19 [Rx] Ciprofloxacin [Ciprofloxacin HCl] 500 mg PO BID tablet 05/23/19 [Rx] Clopidogrel [Plavix] 75 mg PO DAILY tablet 05/23/19 [Rx] Enoxaparin [Lovenox] 30 mg SUBCUT 1400 05/23/19 [History] FLUoxetine HCl [Prozac] 20 mg PO DAILY 05/23/19 [History] Melatonin 3 mg PO BEDTIME tablet 05/23/19 [Rx] Metoprolol Succinate [Toprol XL] 12.5 mg PO DAILY tab.er 05/23/19 [Rx] atorvaSTATin [Lipitor] 80 mg PO BEDTIME tablet 05/23/19 [Rx] lisinopriL [Prinivil] 2.5 mg PO BID tablet 05/23/19 [Rx] traZODone HCl [Trazodone HCl] 50 mg PO BEDTIME 05/23/19 [History] Past Medical History HEENT History: Reports: Hard of Hearing, Impaired Vision Cardiovascular History: Reports: Hypertension Respiratory History: Reports: None Gastrointestinal History: Reports: Diverticulosis Other Gastrointestinal History: Uses gluten free diet Genitourinary History: Reports: UTI, Recurrent [employer] HEL[employer]TER History: Reports: Other OB/BYN History: Parity: 2 gravity: 2, 2 vaginal deliveries. no known MICHELLE Musculoskeletal History: Reports: Osteoarthritis Endocrine/Metabolic History: Reports: Hypothyroidism Oncologic (Cancer) History: Reports: None - Infectious Disease History Infectious Disease History: Reports: Shingles - Past Surgical History Other Respiratory Surgeries/Procedures: no O2 at night GI Surgical History: Reports: Appendectomy, Hernia Repair/Other Female Surgical History: Reports: Hysterectomy, Other (See Below) Other Female Surgeries/Procedures: Prolapsed vagina; bladder repair surgery; large cervical esophagus Other Neurological Surgeries/Procedures: no sensation changes in LEs Musculoskeletal Surgical History: Reports: Other (See Below) Other Musculoskeletal Surgeries/Procedures:: surgery right leg to relieve heal pain; left ankle repair tendon Social & Family History - Family History Cardiac: Reports: Hypertension GI: Reports: Diverticulitis, Diverticulosis Musculoskeletal: Reports: Arthritis, Osteoarthritis, Osteoporosis Neurological: Reports: Vertigo Other Neurological Family History: Sister had vertigo, Mother and Father from stroke at 78 and 92 respectively Immunologic: Reports: None - Caffeine Use Caffeine Use: Reports: Coffee H&P Review of Systems - Review of Systems: Review Of Systems: Comprehensive ROS is negative, except as noted in HPI. Exam - Exam Exam: See Below - Exam General: Alert, Cooperative HEENT: PERRLA, Conjunctiva Clear, EACs Clear, EOMI Neck: Supple, Trachea Midline Lungs: Clear to Auscultation, Normal Respiratory Effort Cardiovascular: Regular Rate, Regular Rhythm GI/Abdominal Exam: Normal Bowel Sounds Back Exam: Paraspinal Tenderness, Other (scoliosis) Peripheral Pulses: 2+: Dorsalis Pedis (L), Dorsalis Pedis (R) Skin: Warm, Dry, Intact Neurological: Other (right sided loss of function and sensation.) Neuro Extensive - Mental Status: Alert - Problem List (1) CVA, Cerebrovascular accident SNOMED Code(s): 521940860 ICD Code: I63.9 - CEREBRAL INFARCTION, UNSPECIFIED Status: Acute Priority : High Current Visit: Yes (2) Hemiparesis affecting right side as late effect of cerebrovascular accident SNOMED Code(s): 266096772, 649308776 ICD Code: I69.351 - HEMIPLGA FOLLOWING CEREBRAL INFRC AFF RIGHT DOMINANT SIDE Status: Acute Priority: High Current Visit: Yes Problem List Initiated/Reviewed/Updated: Yes Orders Last 24hrs: Active Orders 24 hr Category Date Time Status Patient Status [ADT] Routine ADT 05/23/19 09:33 Active Consult to [employer] Specialist [CONS] Routine Cons 05/23/19 09:33 Active Consult to Home Health [CONS] Routine Cons 05/23/19 09:33 Active Consult to Infection Prevention [CONS] Routine Cons 05/23/19 09:33 Active Consult to Wound Care Services [CONS] Routine Cons 05/23/19 09:33 Active OT Evaluation and Treatment [CONS] Routine Cons 05/23/19 09:33 Active PT Evaluation and Treatment [CONS] Routine Cons 05/23/19 09:33 Active RETAIL HELPER Evaluation and Treatment [CONS] Routine Cons 05/23/19 09:33 Active Tuberculin, PPD [AplisoL] Med 05/23/19 09:33 Once 5 unit IDERM ONETIME ONE Resuscitation Status Routine Resus Stat 05/23/19 09:33 Ordered Medication Orders Tuberculin PPD (Aplisol) 5 unit IDERM ONETIME ONE Stop: 05/23/19 09:34 Assessment/Plan Comment:: Patient to be admitted to Swing bed for rehabilitation and management. We will try to improve her mobility and strength.
[2019-05-23] MEDS ORDERED: Albuterol/Ipratropium 3.0-0.5 MG/3 ML Neb Soln NEB PRN (10:34)
[2019-05-23] MEDS ORDERED: Morphine Oral Concentrate 20 MG/ML 30 ML Bottle SL PRN (10:40)
[2019-05-23] MEDS ORDERED: Acetaminophen 500 MG Tab PO SCH (10:45)
[2019-05-23] MEDS ORDERED: Carboxymethylcellulose Sodium 0.5% Ophth Soln 15 ML Bottle EYEBOTH PRN (13:57)
[2019-05-23] MEDS: Enoxaparin 30 MG/0.3 ML Syringe SUBCUT SCH (14:50)
[2019-05-23] MEDS ORDERED: Polyvinyl Alcohol 1.4% Ophth Soln 15 ML Bottle EYEBOTH SCH ×2 (15:15)
[2019-05-23] MEDS ORDERED: Polyvinyl Alcohol 1.4% Ophth Soln 15 ML Bottle EYEBOTH PRN (15:31)
[2019-05-23] MEDS: atorvaSTATin 80 MG Tab PO SCH (19:51)
[2019-05-23] MEDS: Acetaminophen 500 MG Tab PO SCH (19:51)
[2019-05-23] MEDS: traZODone 50 MG Tab PO SCH (19:51)
[2019-05-23] MEDS: Melatonin 3 MG Tab PO SCH (19:51)
[2019-05-23] MEDS: Lisinopril 5 MG Tab PO SCH (19:52)
[2019-05-23] MEDS ORDERED: Ciprofloxacin 500 MG Tab PO SCH (20:00)
[2019-05-24] MEDS: Metoprolol Succinate 25 MG Tab.ER PO SCH (08:48)
[2019-05-24] MEDS: Aspirin 81 MG Tab.Chew PO SCH (08:48)
[2019-05-24] MEDS: Cholecalciferol (Vitamin D3) 2,000 Unit Cap PO SCH (08:48)
[2019-05-24] MEDS: FLUoxetine 20 MG Cap PO SCH (08:50)
[2019-05-24] MEDS: Clopidogrel 75 MG Tab PO SCH (08:51)
[2019-05-24] MEDS: Lisinopril 5 MG Tab PO SCH ×2 (08:55→20:12)
[2019-05-24] MEDS: Acetaminophen 500 MG Tab PO SCH ×2 (09:28→20:10)
[2019-05-24] MEDS: Enoxaparin 30 MG/0.3 ML Syringe SUBCUT SCH (15:45)
[2019-05-24] MEDS: Melatonin 3 MG Tab PO SCH (20:10)
[2019-05-24] MEDS: traZODone 50 MG Tab PO SCH (20:10)
[2019-05-24] MEDS ORDERED: Lisinopril 2.5 MG Tab ONE (20:12)
[2019-05-24] MEDS: atorvaSTATin 80 MG Tab PO SCH (20:36)
[2019-05-25] MEDS: Lisinopril 5 MG Tab PO SCH ×2 (08:24→20:03)
[2019-05-25] MEDS: Aspirin 81 MG Tab.Chew PO SCH (08:24)
[2019-05-25] MEDS: Clopidogrel 75 MG Tab PO SCH (08:24)
[2019-05-25] MEDS: FLUoxetine 20 MG Cap PO SCH (08:25)
[2019-05-25] MEDS: Metoprolol Succinate 25 MG Tab.ER PO SCH (08:25)
[2019-05-25] MEDS: Cholecalciferol (Vitamin D3) 2,000 Unit Cap PO SCH (08:26)
[2019-05-25] MEDS: Acetaminophen 500 MG Tab PO SCH ×2 (08:26→20:04)
[2019-05-25] MEDS: Enoxaparin 30 MG/0.3 ML Syringe SUBCUT SCH (16:15)
[2019-05-25] MEDS: Melatonin 3 MG Tab PO SCH (20:04)
[2019-05-25] MEDS: atorvaSTATin 80 MG Tab PO SCH (20:04)
[2019-05-25] MEDS: traZODone 50 MG Tab PO SCH (20:04)
[2019-05-26] MEDS: Lisinopril 5 MG Tab PO SCH ×2 (08:22→19:42)
[2019-05-26] MEDS: Clopidogrel 75 MG Tab PO SCH (08:22)
[2019-05-26] MEDS: Aspirin 81 MG Tab.Chew PO SCH (08:22)
[2019-05-26] MEDS: FLUoxetine 20 MG Cap PO SCH (08:23)
[2019-05-26] MEDS: Cholecalciferol (Vitamin D3) 2,000 Unit Cap PO SCH (08:24)
[2019-05-26] MEDS: Metoprolol Succinate 25 MG Tab.ER PO SCH (08:24)
[2019-05-26] MEDS: Acetaminophen 500 MG Tab PO SCH ×2 (08:24→19:43)
[2019-05-26] MEDS: Enoxaparin 30 MG/0.3 ML Syringe SUBCUT SCH (14:55)
[2019-05-26] MEDS: atorvaSTATin 80 MG Tab PO SCH (19:42)
[2019-05-26] MEDS: Melatonin 3 MG Tab PO SCH (19:42)
[2019-05-26] MEDS: traZODone 50 MG Tab PO SCH (19:42)
[2019-05-27] MEDS: Cholecalciferol (Vitamin D3) 2,000 Unit Cap PO SCH (07:47)
[2019-05-27] MEDS: Aspirin 81 MG Tab.Chew PO SCH (07:47)
[2019-05-27] MEDS: FLUoxetine 20 MG Cap PO SCH (07:48)
[2019-05-27] MEDS: Acetaminophen 500 MG Tab PO SCH ×2 (07:48→20:24)
[2019-05-27] MEDS: Metoprolol Succinate 25 MG Tab.ER PO SCH ×3 (07:48→20:00)
[2019-05-27] MEDS: Lisinopril 5 MG Tab PO SCH ×2 (07:48→20:25)
[2019-05-27] MEDS: Clopidogrel 75 MG Tab PO SCH (07:48)
--- NOTE | 2019-05-27 11:27 | PCM.SN ---
- Free Text/Narrative Note: Notified by nursing that patient had unprovoked epistaxis this morning. BP trending in 170s-180s/70s-80s. Patient denies pain, headache, or other bleeding. Given additional 12.5 mg metoprolol at midday today. Plan: continue to trend BP with goal to decrease toward AHA guidelines of >120/ 80 without causing dizziness or syncope. Will continue to monitor.
[2019-05-27] MEDS ORDERED: Metoprolol Succinate 25 MG Tab.ER PO ONE (12:00)
[2019-05-27] MEDS: Enoxaparin 30 MG/0.3 ML Syringe SUBCUT SCH (14:10)
[2019-05-27] MEDS ORDERED: Metoprolol Succinate 25 MG Tab.ER ONE (17:14)
--- NOTE | 2019-05-27 18:55 | PCM.SN ---
- Free Text/Narrative Note: Notified by nursing that the patient was having some tachycardia with an irregular pulse. EKG obtained; significant for atrial flutter. Patient assessed and noted VS: [id number]/84 with an oxygen saturation of 96% in room air. Patient stated she had some abdominal pain but denies headache or other complaints. No nausea, vomiting, SOB, chest pain. Patient given additional 12.5 mg metoprolol and placed on branch associate teller.
[2019-05-27] MEDS: atorvaSTATin 80 MG Tab PO SCH (20:24)
[2019-05-27] MEDS: Melatonin 3 MG Tab PO SCH (20:25)
[2019-05-27] MEDS: traZODone 50 MG Tab PO SCH (20:25)
[2019-05-28] MEDS: Lisinopril 5 MG Tab PO SCH ×2 (07:30→19:50)
[2019-05-28] MEDS: Clopidogrel 75 MG Tab PO SCH (07:31)
[2019-05-28] MEDS: FLUoxetine 20 MG Cap PO SCH (07:31)
[2019-05-28] MEDS: Aspirin 81 MG Tab.Chew PO SCH (07:31)
[2019-05-28] MEDS: Acetaminophen 500 MG Tab PO SCH ×2 (07:31→19:51)
[2019-05-28] MEDS: Cholecalciferol (Vitamin D3) 2,000 Unit Cap PO SCH (07:31)
[2019-05-28] MEDS ORDERED: Metoprolol Succinate 25 MG Tab.ER PO ONE (07:44)
[2019-05-28] MEDS: Enoxaparin 30 MG/0.3 ML Syringe SUBCUT SCH (14:00)
--- NOTE | 2019-05-28 14:15 | PCM.SN ---
- Free Text/Narrative Note: PT noticed elevated BP after exercise. We will increase lisinopril from 2.5mg to 5mg bid and continue to monitor.
[2019-05-28] MEDS: traZODone 50 MG Tab PO SCH (19:49)
[2019-05-28] MEDS: Melatonin 3 MG Tab PO SCH (19:50)
[2019-05-28] MEDS: atorvaSTATin 80 MG Tab PO SCH (19:50)
[2019-05-28] MEDS ORDERED: Metoprolol Succinate 25 MG Tab.ER PO SCH (20:00)
[2019-05-29] MEDS: Cholecalciferol (Vitamin D3) 2,000 Unit Cap PO SCH (09:16)
[2019-05-29] MEDS: Lisinopril 5 MG Tab PO SCH ×2 (09:16→20:38)
[2019-05-29] MEDS: Aspirin 81 MG Tab.Chew PO SCH (09:20)
[2019-05-29] MEDS: Acetaminophen 500 MG Tab PO SCH ×2 (09:20→20:37)
[2019-05-29] MEDS: FLUoxetine 20 MG Cap PO SCH (09:21)
[2019-05-29] MEDS: Clopidogrel 75 MG Tab PO SCH (09:21)
[2019-05-29] MEDS: atorvaSTATin 80 MG Tab PO SCH (20:37)
[2019-05-29] MEDS: Melatonin 3 MG Tab PO SCH (20:37)
[2019-05-29] MEDS: traZODone 50 MG Tab PO SCH (20:38)
[2019-05-29] MEDS: Metoprolol Succinate 25 MG Tab.ER PO SCH (20:58)
[2019-05-30] MEDS: Acetaminophen 500 MG Tab PO SCH ×3 (07:58→23:55)
[2019-05-30] MEDS: Cholecalciferol (Vitamin D3) 2,000 Unit Cap PO SCH (07:58)
[2019-05-30] MEDS: FLUoxetine 20 MG Cap PO SCH (07:58)
[2019-05-30] MEDS: Aspirin 81 MG Tab.Chew PO SCH (07:58)
[2019-05-30] MEDS: Lisinopril 5 MG Tab PO SCH ×2 (07:59→19:52)
[2019-05-30] MEDS: Clopidogrel 75 MG Tab PO SCH (07:59)
[2019-05-30] MEDS: atorvaSTATin 80 MG Tab PO SCH (19:50)
[2019-05-30] MEDS: Metoprolol Succinate 25 MG Tab.ER PO SCH (19:51)
[2019-05-30] MEDS: traZODone 50 MG Tab PO SCH (19:52)
[2019-05-30] MEDS: Melatonin 3 MG Tab PO SCH (19:52)
[2019-05-31] MEDS: FLUoxetine 20 MG Cap PO SCH (08:09)
[2019-05-31] MEDS: Cholecalciferol (Vitamin D3) 2,000 Unit Cap PO SCH (08:09)
[2019-05-31] MEDS: Clopidogrel 75 MG Tab PO SCH (08:09)
[2019-05-31] MEDS: Aspirin 81 MG Tab.Chew PO SCH (08:09)
[2019-05-31] MEDS: Lisinopril 5 MG Tab PO SCH ×2 (08:20→19:33)
[2019-05-31] MEDS: Acetaminophen 500 MG Tab PO SCH ×2 (12:18→23:40)
[2019-05-31] MEDS: Pantoprazole 40 MG Tab.CR PO SCH (15:10)
[2019-05-31] MEDS: Metoprolol Succinate 25 MG Tab.ER PO SCH (19:32)
[2019-05-31] MEDS: traZODone 50 MG Tab PO SCH (19:33)
[2019-05-31] MEDS: Melatonin 3 MG Tab PO SCH (19:33)
[2019-05-31] MEDS: atorvaSTATin 80 MG Tab PO SCH (19:33)
[2019-06-01] MEDS: Pantoprazole 40 MG Tab.CR PO SCH (08:09)
[2019-06-01] MEDS: Aspirin 81 MG Tab.Chew PO SCH (08:09)
[2019-06-01] MEDS: Lisinopril 5 MG Tab PO SCH ×2 (08:09→19:46)
[2019-06-01] MEDS: Clopidogrel 75 MG Tab PO SCH (08:09)
[2019-06-01] MEDS: Cholecalciferol (Vitamin D3) 2,000 Unit Cap PO SCH (08:10)
[2019-06-01] MEDS: FLUoxetine 20 MG Cap PO SCH (08:10)
[2019-06-01] MEDS: Cholestyramine/Sucrose Powder 378 GM Jar PO SCH (18:29)
[2019-06-01] MEDS: traZODone 50 MG Tab PO SCH (19:46)
[2019-06-01] MEDS: Metoprolol Succinate 25 MG Tab.ER PO SCH (19:46)
[2019-06-01] MEDS: Melatonin 3 MG Tab PO SCH (19:46)
[2019-06-01] MEDS: atorvaSTATin 80 MG Tab PO SCH (19:47)
[2019-06-01] MEDS: Acetaminophen 325 MG Tab PO SCH (19:47)
[2019-06-02] MEDS: Acetaminophen 325 MG Tab PO SCH ×2 (08:16→19:21)
[2019-06-02] MEDS: Aspirin 81 MG Tab.Chew PO SCH (08:16)
[2019-06-02] MEDS: Clopidogrel 75 MG Tab PO SCH (08:17)
[2019-06-02] MEDS: FLUoxetine 20 MG Cap PO SCH (08:17)
[2019-06-02] MEDS: Pantoprazole 40 MG Tab.CR PO SCH (08:17)
[2019-06-02] MEDS: Cholecalciferol (Vitamin D3) 2,000 Unit Cap PO SCH (08:17)
[2019-06-02] MEDS: Lisinopril 5 MG Tab PO SCH ×2 (08:58→19:20)
[2019-06-02] MEDS: Cholestyramine/Sucrose Powder 378 GM Jar PO SCH (09:00)
[2019-06-02] MEDS: atorvaSTATin 80 MG Tab PO SCH (19:22)
[2019-06-02] MEDS: traZODone 50 MG Tab PO SCH (19:22)
[2019-06-02] MEDS: Melatonin 3 MG Tab PO SCH (19:22)
[2019-06-02] MEDS: Metoprolol Succinate 25 MG Tab.ER PO SCH (19:22)
[2019-06-03] MEDS: Cholecalciferol (Vitamin D3) 2,000 Unit Cap PO SCH (07:52)
[2019-06-03] MEDS: Acetaminophen 325 MG Tab PO SCH (07:52)
[2019-06-03] MEDS: FLUoxetine 20 MG Cap PO SCH (07:52)
[2019-06-03] MEDS: Aspirin 81 MG Tab.Chew PO SCH (07:52)
[2019-06-03] MEDS: Clopidogrel 75 MG Tab PO SCH (07:52)
[2019-06-03] MEDS: Pantoprazole 40 MG Tab.CR PO SCH (07:52)
[2019-06-03] MEDS: Lisinopril 5 MG Tab PO SCH ×2 (07:55→19:39)
[2019-06-03] MEDS: Cholestyramine/Sucrose Powder 378 GM Jar PO SCH (08:18)
[2019-06-03] MEDS: traZODone 50 MG Tab PO SCH (19:32)
[2019-06-03] MEDS: Melatonin 3 MG Tab PO SCH (19:32)
[2019-06-03] MEDS: Acetaminophen 500 MG Tab PO SCH (19:32)
[2019-06-03] MEDS: atorvaSTATin 80 MG Tab PO SCH (19:32)
[2019-06-03] MEDS: Metoprolol Succinate 25 MG Tab.ER PO SCH (19:39)
[2019-06-04] MEDS: Lisinopril 5 MG Tab PO SCH ×2 (07:21→19:32)
[2019-06-04] MEDS: Clopidogrel 75 MG Tab PO SCH (07:21)
[2019-06-04] MEDS: Pantoprazole 40 MG Tab.CR PO SCH (07:21)
[2019-06-04] MEDS: FLUoxetine 20 MG Cap PO SCH (07:21)
[2019-06-04] MEDS: Cholecalciferol (Vitamin D3) 2,000 Unit Cap PO SCH (07:21)
[2019-06-04] MEDS: Acetaminophen 500 MG Tab PO SCH ×2 (07:22→19:29)
[2019-06-04] MEDS: Aspirin 81 MG Tab.Chew PO SCH (07:22)
[2019-06-04] MEDS: Cholestyramine/Sucrose Powder 378 GM Jar PO SCH (07:23)
[2019-06-04] MEDS: Melatonin 3 MG Tab PO SCH (19:28)
[2019-06-04] MEDS: traZODone 50 MG Tab PO SCH (19:29)
[2019-06-04] MEDS: atorvaSTATin 80 MG Tab PO SCH (19:29)
[2019-06-04] MEDS: Metoprolol Succinate 25 MG Tab.ER PO SCH (19:32)
[2019-06-05] MEDS: FLUoxetine 20 MG Cap PO SCH ×2 (08:58→17:37)
[2019-06-05] MEDS: Acetaminophen 500 MG Tab PO SCH ×2 (08:58→20:03)
[2019-06-05] MEDS: Pantoprazole 40 MG Tab.CR PO SCH (08:58)
[2019-06-05] MEDS: Cholecalciferol (Vitamin D3) 2,000 Unit Cap PO SCH (08:58)
[2019-06-05] MEDS: Clopidogrel 75 MG Tab PO SCH (08:58)
[2019-06-05] MEDS: Aspirin 81 MG Tab.Chew PO SCH (08:58)
[2019-06-05] MEDS: Cholestyramine/Sucrose Powder 378 GM Jar PO SCH (08:59)
[2019-06-05] MEDS ORDERED: Sodium Chloride 0.9% 500 ML IV ONE (11:14)
[2019-06-05] MEDS: Lisinopril 5 MG Tab PO SCH (14:00)
--- NOTE | 2019-06-05 14:15 | CT ---
DATE OF SERVICE: 06/05/2019 CLINICAL DATA: Altered mental state Unenhanced brain CT: Multislice acquisition of the brain without IV contrast was performed. Comparison is made to a prior exam dated 21 May 2019. 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 There are periventricular lucencies bilaterally consistent with small vessel ischemic changes. 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 No masses or mass effect. No intracranial hemorrhage. No evidence of acute or subacute infarct. No osseous abnormalities. [facility]
[2019-06-05] MEDS: Melatonin 3 MG Tab PO SCH (20:01)
[2019-06-05] MEDS: Metoprolol Succinate 25 MG Tab.ER PO SCH (20:01)
[2019-06-05] MEDS: atorvaSTATin 80 MG Tab PO SCH (20:03)
[2019-06-06] MEDS ORDERED: Tuberculin, PPD 5 Units/0.1 ML 1 ML MDV IDERM ONE (07:00)
[2019-06-06] MEDS: Cholecalciferol (Vitamin D3) 2,000 Unit Cap PO SCH (08:05)
[2019-06-06] MEDS: Apixaban 2.5 MG Tab PO SCH ×2 (08:05→20:35)
[2019-06-06] MEDS: FLUoxetine 20 MG Cap PO SCH (08:05)
[2019-06-06] MEDS: CHOLESTYRAMINE 4 GM PO SCH (08:05)
[2019-06-06] MEDS: Acetaminophen 500 MG Tab PO SCH ×2 (08:05→20:35)
[2019-06-06] MEDS: Pantoprazole 40 MG Tab.CR PO SCH (08:05)
[2019-06-06] MEDS ORDERED: Ondansetron 4 MG Tab.DIS ONE (19:30)
[2019-06-06] MEDS: Ondansetron 4 MG Tab.DIS PO PRN (19:37)
[2019-06-06] MEDS: atorvaSTATin 80 MG Tab PO SCH (20:35)
[2019-06-06] MEDS: Melatonin 3 MG Tab PO SCH (20:35)
[2019-06-06] MEDS: traZODone 50 MG Tab PO PRN (20:36)
[2019-06-06] MEDS: Metoprolol Succinate 25 MG Tab.ER PO SCH (20:37)
[2019-06-06] MEDS: Ciprofloxacin 250 MG Tab PO SCH (20:44)
[2019-06-06] MEDS: Sodium Chloride 0.9% 10 ML Syringe FLUSH PRN (20:45)
[2019-06-07] MEDS: Apixaban 2.5 MG Tab PO SCH ×2 (08:15→20:43)
[2019-06-07] MEDS: Ciprofloxacin 250 MG Tab PO SCH ×2 (08:15→20:43)
[2019-06-07] MEDS: Acetaminophen 500 MG Tab PO SCH ×2 (08:15→20:36)
[2019-06-07] MEDS: Cholecalciferol (Vitamin D3) 2,000 Unit Cap PO SCH (08:15)
[2019-06-07] MEDS: Pantoprazole 40 MG Tab.CR PO SCH (08:16)
[2019-06-07] MEDS: FLUoxetine 20 MG Cap PO SCH (08:16)
[2019-06-07] MEDS: CHOLESTYRAMINE 4 GM PO SCH (08:47)
[2019-06-07] MEDS: Metoprolol Succinate 25 MG Tab.ER PO SCH (20:37)
[2019-06-07] MEDS: Melatonin 3 MG Tab PO SCH (20:37)
[2019-06-07] MEDS: atorvaSTATin 80 MG Tab PO SCH (20:37)
[2019-06-07] MEDS: traZODone 50 MG Tab PO PRN (20:37)
[2019-06-08] MEDS: CHOLESTYRAMINE 4 GM PO SCH (07:50)
[2019-06-08] MEDS: Acetaminophen 500 MG Tab PO SCH ×2 (07:51→19:48)
[2019-06-08] MEDS: Apixaban 2.5 MG Tab PO SCH ×2 (07:51→19:47)
[2019-06-08] MEDS: Cholecalciferol (Vitamin D3) 2,000 Unit Cap PO SCH (07:51)
[2019-06-08] MEDS: FLUoxetine 20 MG Cap PO SCH (07:51)
[2019-06-08] MEDS: Ciprofloxacin 250 MG Tab PO SCH (07:51)
[2019-06-08] MEDS: Pantoprazole 40 MG Tab.CR PO SCH (07:51)
[2019-06-08] MEDS: Sodium Chloride 0.9% 10 ML Syringe FLUSH PRN (09:00)
[2019-06-08] MEDS: Metoprolol Succinate 25 MG Tab.ER PO SCH (19:46)
[2019-06-08] MEDS: traZODone 50 MG Tab PO SCH (19:47)
[2019-06-08] MEDS: atorvaSTATin 80 MG Tab PO SCH (19:47)
[2019-06-08] MEDS: Melatonin 3 MG Tab PO SCH (19:47)
[2019-06-08] MEDS: Doxycycline 100 MG Cap PO SCH (19:48)
[2019-06-08] MEDS: Omeprazole 20 MG Cap.CR PO SCH (19:48)
[2019-06-09] MEDS: Cholecalciferol (Vitamin D3) 2,000 Unit Cap PO SCH (08:14)
[2019-06-09] MEDS: CHOLESTYRAMINE 4 GM PO SCH (08:14)
[2019-06-09] MEDS: FLUoxetine 20 MG Cap PO SCH (08:15)
[2019-06-09] MEDS: Omeprazole 20 MG Cap.CR PO SCH ×2 (08:15→20:00)
[2019-06-09] MEDS: Apixaban 2.5 MG Tab PO SCH ×2 (08:15→20:03)
[2019-06-09] MEDS: Acetaminophen 500 MG Tab PO SCH ×2 (08:15→20:03)
[2019-06-09] MEDS: Doxycycline 100 MG Cap PO SCH ×2 (08:15→20:03)
[2019-06-09] MEDS: Sodium Chloride 0.9% 10 ML Syringe FLUSH PRN (08:15)
[2019-06-09] MEDS: Metoprolol Succinate 25 MG Tab.ER PO SCH (20:02)
[2019-06-09] MEDS: traZODone 50 MG Tab PO SCH (20:03)
[2019-06-09] MEDS: atorvaSTATin 80 MG Tab PO SCH (20:03)
[2019-06-09] MEDS: Melatonin 3 MG Tab PO SCH (20:03)
[2019-06-10] MEDS: Apixaban 2.5 MG Tab PO SCH ×2 (07:55→20:44)
[2019-06-10] MEDS: Cholecalciferol (Vitamin D3) 2,000 Unit Cap PO SCH (07:55)
[2019-06-10] MEDS: CHOLESTYRAMINE 4 GM PO SCH (07:55)
[2019-06-10] MEDS: FLUoxetine 20 MG Cap PO SCH (07:55)
[2019-06-10] MEDS: Doxycycline 100 MG Cap PO SCH ×2 (07:56→20:44)
[2019-06-10] MEDS: Acetaminophen 500 MG Tab PO SCH ×2 (07:56→20:43)
[2019-06-10] MEDS: Omeprazole 20 MG Cap.CR PO SCH ×2 (07:56→20:44)
[2019-06-10] MEDS: Methylphenidate 5 MG Tab PO SCH (10:11)
[2019-06-10] MEDS: traZODone 50 MG Tab PO SCH (20:43)
[2019-06-10] MEDS: Metoprolol Succinate 25 MG Tab.ER PO SCH (20:43)
[2019-06-10] MEDS: Melatonin 3 MG Tab PO SCH (20:44)
[2019-06-10] MEDS: atorvaSTATin 80 MG Tab PO SCH (20:44)
[2019-06-11] MEDS: FLUoxetine 20 MG Cap PO SCH (08:33)
[2019-06-11] MEDS: Cholecalciferol (Vitamin D3) 2,000 Unit Cap PO SCH (08:33)
[2019-06-11] MEDS: Omeprazole 20 MG Cap.CR PO SCH ×2 (08:33→19:52)
[2019-06-11] MEDS: Acetaminophen 500 MG Tab PO SCH ×2 (08:33→19:52)
[2019-06-11] MEDS: Apixaban 2.5 MG Tab PO SCH ×2 (08:34→19:52)
[2019-06-11] MEDS: Doxycycline 100 MG Cap PO SCH ×2 (08:34→19:52)
[2019-06-11] MEDS: CHOLESTYRAMINE 4 GM PO SCH (08:35)
[2019-06-11] MEDS: Methylphenidate 5 MG Tab PO SCH (13:51)
[2019-06-11] MEDS: Metoprolol Succinate 25 MG Tab.ER PO SCH (19:51)
[2019-06-11] MEDS: Melatonin 3 MG Tab PO SCH (19:52)
[2019-06-11] MEDS: traZODone 50 MG Tab PO SCH (19:52)
[2019-06-11] MEDS: atorvaSTATin 80 MG Tab PO SCH (19:52)
[2019-06-11] MEDS ORDERED: Lisinopril 5 MG Tab PO ONE (20:00)
[2019-06-11] MEDS ORDERED: Lisinopril 5 MG Tab ONE (20:01)
[2019-06-12] MEDS: FLUoxetine 20 MG Cap PO SCH (09:04)
[2019-06-12] MEDS: Omeprazole 20 MG Cap.CR PO SCH ×2 (09:04→19:44)
[2019-06-12] MEDS: Acetaminophen 500 MG Tab PO SCH ×2 (09:05→19:44)
[2019-06-12] MEDS: Cholecalciferol (Vitamin D3) 2,000 Unit Cap PO SCH (09:05)
[2019-06-12] MEDS: Doxycycline 100 MG Cap PO SCH ×2 (09:05→19:44)
[2019-06-12] MEDS: Apixaban 2.5 MG Tab PO SCH ×2 (09:05→19:44)
[2019-06-12] MEDS: CHOLESTYRAMINE 4 GM PO SCH (09:06)
[2019-06-12] MEDS: Methylphenidate 5 MG Tab PO SCH (09:06)
[2019-06-12] MEDS ORDERED: Furosemide 20 MG Tab PO ONE (09:44)
[2019-06-12] MEDS ORDERED: Lisinopril 5 MG Tab PO SCH (09:45)
[2019-06-12] MEDS ORDERED: Furosemide 20 MG Tab ONE (12:22)
[2019-06-12] MEDS: Lisinopril 5 MG Tab PO SCH ×2 (19:43→20:38)
[2019-06-12] MEDS: Melatonin 3 MG Tab PO SCH (19:44)
[2019-06-12] MEDS: atorvaSTATin 80 MG Tab PO SCH (19:45)
[2019-06-12] MEDS: Metoprolol Succinate 25 MG Tab.ER PO SCH (19:45)
[2019-06-12] MEDS: traZODone 50 MG Tab PO SCH (20:37)
[2019-06-13] MEDS: Omeprazole 20 MG Cap.CR PO SCH ×2 (08:40→19:33)
[2019-06-13] MEDS: FLUoxetine 20 MG Cap PO SCH (08:40)
[2019-06-13] MEDS: Lisinopril 5 MG Tab PO SCH ×2 (08:40→19:38)
[2019-06-13] MEDS: Doxycycline 100 MG Cap PO SCH (08:41)
[2019-06-13] MEDS: Cholecalciferol (Vitamin D3) 2,000 Unit Cap PO SCH (08:41)
[2019-06-13] MEDS: Methylphenidate 5 MG Tab PO SCH (08:41)
[2019-06-13] MEDS: Apixaban 2.5 MG Tab PO SCH ×2 (08:41→19:33)
[2019-06-13] MEDS: Acetaminophen 500 MG Tab PO SCH ×2 (08:41→19:33)
[2019-06-13] MEDS: CHOLESTYRAMINE 4 GM PO SCH (08:52)
[2019-06-13] MEDS: Melatonin 3 MG Tab PO SCH (19:33)
[2019-06-13] MEDS: traZODone 50 MG Tab PO SCH (19:33)
[2019-06-13] MEDS: atorvaSTATin 80 MG Tab PO SCH (19:34)
[2019-06-13] MEDS: Metoprolol Succinate 25 MG Tab.ER PO SCH (19:38)
[2019-06-14] MEDS: Methylphenidate 5 MG Tab PO SCH (08:38)
[2019-06-14] MEDS: FLUoxetine 20 MG Cap PO SCH (08:38)
[2019-06-14] MEDS: Apixaban 2.5 MG Tab PO SCH ×2 (08:38→19:45)
[2019-06-14] MEDS: Cholecalciferol (Vitamin D3) 2,000 Unit Cap PO SCH (08:38)
[2019-06-14] MEDS: Lisinopril 5 MG Tab PO SCH ×2 (08:39→19:47)
[2019-06-14] MEDS: Omeprazole 20 MG Cap.CR PO SCH ×2 (08:39→19:48)
[2019-06-14] MEDS: Acetaminophen 500 MG Tab PO SCH ×2 (08:39→19:46)
[2019-06-14] MEDS: CHOLESTYRAMINE 4 GM PO SCH (08:39)
[2019-06-14] MEDS ORDERED: Torsemide 20 MG Tab PO SCH (12:00)
[2019-06-14] MEDS: Metoprolol Succinate 25 MG Tab.ER PO SCH ×2 (12:30→19:47)
--- NOTE | 2019-06-14 12:36 | PCM.PN ---
- General Info Date of Service: 06/14/19 Admission Dx/Problem (Free Text): Admission Diagnosis/Problem Admission Diagnosis/Problem Weakness Subjective Update: S Patient with tachycardia and hypertension with history of CHF Patient BP have been up and down. Patient off of prior Lasix dose of 20 mg bid O see vitals HR 116. BP elevated at times Heart irregularly irregular with mild tachycardia Lungs crackle at bases Diagnosis Atrial fib with RVR Wll increase metoprolol to 25 mg po bid. Will need to assess response going forward HTN/CHF Will decrease Lisinopril to 5 mg daily in evening from 5 mg bid Start torsemide 5 mg daily. Will start tomorrow in am Check BMP on tuesday. Will need to monitor BP and potassium S/P CVA Continue PT Patient using walker Patient using CPAP Continue current treatment anthony - Patient Data Vitals - Most Recent: Last Vital Signs Temp 97.4 F 06/14/19 08:00 Pulse 48 L 06/14/19 08:00 Resp 18 06/14/19 08:00 BP 180/113 H 06/14/19 08:39 Pulse Ox 99 06/14/19 08:00 Weight - Most Recent: 68.039 kg I&O - Last 24 Hours: Intake & Output 06/13/19 06/14/19 06/14/19 22:59 06:59 14:59 Intake Total 500 Output Total 400 Balance 100 Med Orders - Current: Current Medications Acetaminophen (Tylenol Extra Strength) 500 mg PO Q12H [facility] Last Admin: 06/14/19 08:39 Dose: 500 mg Albuterol/Ipratropium (Duoneb 3.0-0.5 Mg/3 Ml) 3 ml NEB Q4H PRN PRN Reason: Wheezing Apixaban (Eliquis) 2.5 mg PO BID [facility] Last Admin: 06/14/19 08:38 Dose: 2.5 mg Artificial Tears (Liquitears 1.4% Ophth Soln) 1 - 2 ml EYEBOTH Q2H PRN PRN Reason: Dry Eyes Atorvastatin Calcium (Lipitor) 80 mg PO BEDTIME [facility] Last Admin: 06/13/19 19:34 Dose: 80 mg Cholecalciferol (Vitamin D3) 2,000 unit PO DAILY [facility] Last Admin: 06/14/19 08:38 Dose: 2,000 unit Fluoxetine HCl (Prozac) 40 mg PO DAILY [facility] Last Admin: 06/14/19 08:38 Dose: 40 mg Lisinopril (Prinivil) 5 mg PO BEDTIME [facility] Melatonin (Melatonin) 3 mg PO BEDTIME [facility] Last Admin: 06/13/19 19:33 Dose: 3 mg Methylphenidate HCl (Ritalin) 5 mg PO DAILY [facility] Last Admin: 06/14/19 08:38 Dose: 5 mg Metoprolol Succinate (Toprol Xl) 25 mg PO BID [facility] Morphine Sulfate (Morphine 20 Mg/Ml Soln) 1 mg SL Q2H PRN PRN Reason: Pain Cholestyramine 4gm (Oral Suspension) 1 each PO DAILY [facility] Last Admin: 06/14/19 08:39 Dose: 1 each Omeprazole (Omeprazole) 20 mg PO BIDAC [facility] Last Admin: 06/14/19 08:39 Dose: 20 mg Ondansetron HCl (Zofran Odt) 4 mg PO Q6H PRN PRN Reason: Nausea/Vomiting Last Admin: 06/06/19 19:37 Dose: 4 mg Sodium Chloride (Saline Flush) 10 ml FLUSH ASDIRECTED PRN PRN Reason: Keep Vein Open Last Admin: 06/09/19 08:15 Dose: 10 ml Torsemide (Demadex) 5 mg PO DAILY [facility] Trazodone HCl (Trazodone) 50 mg PO BEDTIME [facility] Last Admin: 06/13/19 19:33 Dose: 50 mg Discontinued Medications Acetaminophen (Tylenol Extra Strength) 1,000 mg PO Q12H [facility] Last Admin: 05/23/19 14:25 Dose: Not Given Acetaminophen (Tylenol Extra Strength) 1,000 mg PO Q12H [facility] Last Admin: 05/30/19 07:58 Dose: 1,000 mg Acetaminophen (Tylenol Extra Strength) 500 mg PO Q12H [facility] Last Admin: 05/31/19 23:40 Dose: Not Given Acetaminophen (Tylenol) 500 mg PO BID [facility] Last Admin: 06/03/19 07:52 Dose: 500 mg Artificial Tears (Liquitears 1.4% Ophth Soln) 1 - 2 ml EYEBOTH ASDIRECTED [facility] Artificial Tears (Liquitears 1.4% Ophth Soln) 1 - 2 ml EYEBOTH Q2H [facility] Last Admin: 05/23/19 17:35 Dose: Not Given Aspirin (Aspirin) 81 mg PO DAILY [facility] Last Admin: 06/05/19 08:58 Dose: 81 mg Cholestyramine Resin (Cholestyramine Powder) 4 gm PO DAILY [facility] Last Admin: 06/05/19 08:59 Dose: Not Given Ciprofloxacin (Ciprofloxacin Hcl) 250 mg PO BID [facility] Stop: 06/09/19 08:01 Last Admin: 06/08/19 07:51 Dose: 250 mg Clopidogrel Bisulfate (Plavix) 75 mg PO DAILY [facility] Last Admin: 06/05/19 08:58 Dose: 75 mg Doxycycline Hyclate (Vibramycin) 100 mg PO BID [facility] Stop: 06/13/19 08:01 Last Admin: 06/13/19 08:41 Dose: 100 mg Enoxaparin Sodium (Lovenox) 30 mg SUBCUT 1400 [facility] Last Admin: 05/28/19 14:00 Dose: Not Given Fluoxetine HCl (Prozac) 20 mg PO DAILY [facility] Last Admin: 06/05/19 17:37 Dose: 20 mg Furosemide (Lasix) 20 mg PO ONETIME ONE Stop: 06/12/19 09:45 Last Admin: 06/12/19 12:29 Dose: 20 mg Furosemide (Lasix) Confirm Administered Dose 20 mg .ROUTE .STK-MED ONE Stop: 06/12/19 12:23 Last Admin: 06/12/19 12:33 Dose: Not Given Sodium Chloride (Normal Saline) 500 mls @ 500 mls/hr IV BOLUS ONE Stop: 06/05/19 12:13 Last Admin: 06/05/19 13:58 Dose: 500 mls/hr Lisinopril (Prinivil) 2.5 mg PO BID [facility] Last Admin: 05/28/19 07:30 Dose: 2.5 mg Lisinopril (Prinivil) Confirm Administered Dose 2.5 mg .ROUTE .STK-MED ONE Stop: 05/24/19 20:13 Last Admin: 05/24/19 20:36 Dose: Not Given Lisinopril (Prinivil) 5 mg PO BID [facility] Last Admin: 06/05/19 14:00 Dose: Not Given Lisinopril (Prinivil) Confirm Administered Dose 5 mg .ROUTE .STK-MED ONE Stop: 06/11/19 20:02 Last Admin: 06/11/19 20:31 Dose: Not Given Lisinopril (Prinivil) 5 mg PO ONETIME ONE Stop: 06/11/19 20:01 Last Admin: 06/11/19 20:20 Dose: 5 mg Lisinopril (Prinivil) 5 mg PO DAILY [facility] Last Admin: 06/12/19 12:25 Dose: 5 mg Lisinopril (Prinivil) 5 mg PO BID [facility] Last Admin: 06/14/19 08:39 Dose: 5 mg Metoprolol Succinate (Toprol Xl) 12.5 mg PO DAILY [facility] Last Admin: 05/27/19 07:48 Dose: 12.5 mg Metoprolol Succinate (Toprol Xl) 12.5 mg PO ONETIME ONE Stop: 05/27/19 12:01 Last Admin: 05/27/19 13:00 Dose: 12.5 mg Metoprolol Succinate (Toprol Xl) 12.5 mg PO BEDTIME [facility] Last Admin: 05/27/19 20:00 Dose: Not Given Metoprolol Succinate (Toprol Xl) Confirm Administered Dose 25 mg .ROUTE .STK- MED ONE Stop: 05/27/19 17:15 Last Admin: 05/27/19 17:25 Dose: Not Given Metoprolol Succinate (Toprol Xl) 25 mg PO BEDTIME [facility] Last Admin: 05/28/19 19:49 Dose: 25 mg Metoprolol Succinate (Toprol Xl) 12.5 mg PO ONETIME ONE Stop: 05/28/19 07:45 Last Admin: 05/28/19 08:00 Dose: 12.5 mg Metoprolol Succinate (Toprol Xl) 37.5 mg PO BEDTIME [facility] Last Admin: 06/13/19 19:38 Dose: 37.5 mg Ondansetron HCl (Zofran Odt) Confirm Administered Dose 4 mg .ROUTE .STK-MED ONE Stop: 06/06/19 19:31 Last Admin: 06/06/19 19:38 Dose: Not Given Pantoprazole Sodium (Protonix) 40 mg PO DAILY [facility] Last Admin: 06/08/19 07:51 Dose: 40 mg Torsemide (Demadex) 5 mg PO DAILY [facility] Trazodone HCl (Trazodone) 50 mg PO BEDTIME [facility] Last Admin: 06/04/19 19:29 Dose: 50 mg Trazodone HCl (Trazodone) 50 mg PO BEDTIME PRN PRN Reason: Insomnia Last Admin: 06/07/19 20:37 Dose: 50 mg Tuberculin PPD (Aplisol) 5 unit IDERM ONETIME ONE Stop: 05/23/19 09:34 Last Admin: 05/23/19 14:46 Dose: 5 unit Tuberculin PPD (Aplisol) 5 unit IDERM ONETIME ONE Stop: 06/06/19 07:01 Last Admin: 06/06/19 10:54 Dose: 5 unit - Exam General: Alert, Cooperative, No Acute Distress Neck: Supple Lungs: Rales (at bases) Cardiovascular: Irregular Rhythm, Tachycardia GI/Abdominal Exam: Soft, Non-Tender Skin: Warm, Dry EKG INTERPRETATION Rhythm: A-Fib Sepsis Event Note - Evaluation Sepsis Screening Result: No Definite Risk - Focused Exam Vital Signs: Vital Signs Temp Pulse Resp BP BP Pulse Ox 06/14/19 08:39 180/113 H 06/14/19 08:00 97.4 F 48 L 18 180/113 H 99 Date Exam was Performed: 06/15/19 Time Exam was Performed: 09:55 - Problem List Review Problem List Initiated/Reviewed/Updated: Yes - My Orders Last 24 Hours: My Active Orders 06/14/19 12:00 Metoprolol Succinate [Toprol XL] 25 mg PO BID 06/14/19 20:00 lisinopriL [Prinivil] 5 mg PO BEDTIME 06/15/19 08:00 Torsemide [Demadex] 5 mg PO DAILY 06/18/19 07:30 BASIC METABOLIC PANEL,BMP [CHEM] Routine - Plan Plan:: Patient to be admitted to Swing bed for rehabilitation and management. We will try to improve her mobility and strength.
[2019-06-14] MEDS ORDERED: Metoprolol Succinate 25 MG Tab.ER ONE (12:38)
[2019-06-14] MEDS: atorvaSTATin 80 MG Tab PO SCH (19:45)
[2019-06-14] MEDS: traZODone 50 MG Tab PO SCH (19:45)
[2019-06-14] MEDS: Melatonin 3 MG Tab PO SCH (19:45)
[2019-06-15] MEDS: Omeprazole 20 MG Cap.CR PO SCH ×2 (08:00→20:33)
[2019-06-15] MEDS: Torsemide 20 MG Tab PO SCH (08:01)
[2019-06-15] MEDS: Methylphenidate 5 MG Tab PO SCH (08:02)
[2019-06-15] MEDS: FLUoxetine 20 MG Cap PO SCH (08:02)
[2019-06-15] MEDS: Apixaban 2.5 MG Tab PO SCH ×2 (08:02→20:33)
[2019-06-15] MEDS: Metoprolol Succinate 25 MG Tab.ER PO SCH ×2 (08:03→20:33)
[2019-06-15] MEDS: Cholecalciferol (Vitamin D3) 2,000 Unit Cap PO SCH (08:04)
[2019-06-15] MEDS: CHOLESTYRAMINE 4 GM PO SCH (08:04)
[2019-06-15] MEDS: Acetaminophen 500 MG Tab PO SCH ×2 (08:04→20:32)
[2019-06-15] MEDS: traZODone 50 MG Tab PO SCH (20:32)
[2019-06-15] MEDS: Melatonin 3 MG Tab PO SCH (20:32)
[2019-06-15] MEDS: Lisinopril 5 MG Tab PO SCH (20:32)
[2019-06-15] MEDS: atorvaSTATin 80 MG Tab PO SCH (20:34)
[2019-06-16] MEDS: Omeprazole 20 MG Cap.CR PO SCH ×2 (08:25→20:27)
[2019-06-16] MEDS: Torsemide 20 MG Tab PO SCH (08:26)
[2019-06-16] MEDS: Apixaban 2.5 MG Tab PO SCH ×2 (08:27→20:33)
[2019-06-16] MEDS: FLUoxetine 20 MG Cap PO SCH (08:28)
[2019-06-16] MEDS: Cholecalciferol (Vitamin D3) 2,000 Unit Cap PO SCH (08:30)
[2019-06-16] MEDS: Methylphenidate 5 MG Tab PO SCH (08:30)
[2019-06-16] MEDS: Metoprolol Succinate 25 MG Tab.ER PO SCH ×2 (08:30→20:28)
[2019-06-16] MEDS: CHOLESTYRAMINE 4 GM PO SCH (08:31)
[2019-06-16] MEDS: Acetaminophen 500 MG Tab PO SCH ×2 (08:31→20:30)
[2019-06-16] MEDS: traZODone 50 MG Tab PO SCH (20:31)
[2019-06-16] MEDS: atorvaSTATin 80 MG Tab PO SCH (20:32)
[2019-06-16] MEDS: Melatonin 3 MG Tab PO SCH (20:32)
[2019-06-16] MEDS: Lisinopril 5 MG Tab PO SCH (20:32)
[2019-06-17] MEDS: Torsemide 20 MG Tab PO SCH (07:48)
[2019-06-17] MEDS: Omeprazole 20 MG Cap.CR PO SCH ×2 (07:48→20:38)
[2019-06-17] MEDS: CHOLESTYRAMINE 4 GM PO SCH (07:49)
[2019-06-17] MEDS: Apixaban 2.5 MG Tab PO SCH ×2 (07:49→20:48)
[2019-06-17] MEDS: FLUoxetine 20 MG Cap PO SCH (07:50)
[2019-06-17] MEDS: Metoprolol Succinate 25 MG Tab.ER PO SCH ×2 (07:51→20:40)
[2019-06-17] MEDS: Methylphenidate 5 MG Tab PO SCH (07:51)
[2019-06-17] MEDS: Acetaminophen 500 MG Tab PO SCH ×2 (07:52→20:39)
[2019-06-17] MEDS: Cholecalciferol (Vitamin D3) 2,000 Unit Cap PO SCH (07:52)
[2019-06-17] MEDS: traZODone 50 MG Tab PO SCH (20:38)
[2019-06-17] MEDS: Lisinopril 5 MG Tab PO SCH (20:39)
[2019-06-17] MEDS: atorvaSTATin 80 MG Tab PO SCH (20:40)
[2019-06-17] MEDS: Melatonin 3 MG Tab PO SCH (20:41)
[2019-06-18] MEDS: Torsemide 20 MG Tab PO SCH (09:19)
[2019-06-18] MEDS: Methylphenidate 5 MG Tab PO SCH (09:20)
[2019-06-18] MEDS: Acetaminophen 500 MG Tab PO SCH ×2 (09:20→20:21)
[2019-06-18] MEDS: FLUoxetine 20 MG Cap PO SCH (09:20)
[2019-06-18] MEDS: Cholecalciferol (Vitamin D3) 2,000 Unit Cap PO SCH (09:20)
[2019-06-18] MEDS: CHOLESTYRAMINE 4 GM PO SCH (09:23)
[2019-06-18] MEDS: Metoprolol Succinate 25 MG Tab.ER PO SCH ×2 (09:30→20:21)
[2019-06-18] MEDS: Omeprazole 20 MG Cap.CR PO SCH ×2 (09:34→20:22)
[2019-06-18] MEDS: Apixaban 2.5 MG Tab PO SCH ×2 (09:34→20:22)
[2019-06-18] MEDS: atorvaSTATin 80 MG Tab PO SCH (20:19)
[2019-06-18] MEDS: Lisinopril 5 MG Tab PO SCH (20:20)
[2019-06-18] MEDS: Melatonin 3 MG Tab PO SCH (20:21)
[2019-06-18] MEDS: traZODone 50 MG Tab PO SCH (20:21)
[2019-06-19] MEDS: CHOLESTYRAMINE 4 GM PO SCH (07:47)
[2019-06-19] MEDS: Torsemide 20 MG Tab PO SCH (07:47)
[2019-06-19] MEDS: Methylphenidate 5 MG Tab PO SCH (07:50)
[2019-06-19] MEDS: Apixaban 2.5 MG Tab PO SCH ×2 (07:51→20:14)
[2019-06-19] MEDS: Acetaminophen 500 MG Tab PO SCH ×2 (07:51→20:13)
[2019-06-19] MEDS: Omeprazole 20 MG Cap.CR PO SCH ×2 (07:51→20:13)
[2019-06-19] MEDS: FLUoxetine 20 MG Cap PO SCH (07:51)
[2019-06-19] MEDS: Cholecalciferol (Vitamin D3) 2,000 Unit Cap PO SCH (07:51)
[2019-06-19] MEDS: Metoprolol Succinate 25 MG Tab.ER PO SCH ×2 (08:21→20:13)
[2019-06-19] MEDS: Lisinopril 5 MG Tab PO SCH (20:13)
[2019-06-19] MEDS: Melatonin 3 MG Tab PO SCH (20:13)
[2019-06-19] MEDS: traZODone 50 MG Tab PO SCH (20:13)
[2019-06-19] MEDS: atorvaSTATin 80 MG Tab PO SCH (20:14)
[2019-06-20] MEDS: CHOLESTYRAMINE 4 GM PO SCH (08:45)
[2019-06-20] MEDS: Apixaban 2.5 MG Tab PO SCH ×2 (08:45→20:12)
[2019-06-20] MEDS: Cholecalciferol (Vitamin D3) 2,000 Unit Cap PO SCH (08:45)
[2019-06-20] MEDS: Torsemide 20 MG Tab PO SCH (08:45)
[2019-06-20] MEDS: Acetaminophen 500 MG Tab PO SCH ×2 (08:45→20:11)
[2019-06-20] MEDS: Omeprazole 20 MG Cap.CR PO SCH ×2 (08:45→20:10)
[2019-06-20] MEDS: FLUoxetine 20 MG Cap PO SCH (08:45)
[2019-06-20] MEDS: Metoprolol Succinate 25 MG Tab.ER PO SCH ×2 (09:11→20:11)
[2019-06-20] MEDS: Melatonin 3 MG Tab PO SCH (20:10)
[2019-06-20] MEDS: traZODone 50 MG Tab PO SCH (20:10)
[2019-06-20] MEDS: Lisinopril 5 MG Tab PO SCH (20:11)
[2019-06-20] MEDS: atorvaSTATin 80 MG Tab PO SCH (20:12)
[2019-06-21] MEDS: Omeprazole 20 MG Cap.CR PO SCH ×2 (08:40→20:37)
[2019-06-21] MEDS: Acetaminophen 500 MG Tab PO SCH ×2 (08:41→20:37)
[2019-06-21] MEDS: Metoprolol Succinate 25 MG Tab.ER PO SCH ×2 (08:44→20:36)
[2019-06-21] MEDS: Cholecalciferol (Vitamin D3) 2,000 Unit Cap PO SCH (08:44)
[2019-06-21] MEDS: Apixaban 2.5 MG Tab PO SCH ×2 (08:46→20:37)
[2019-06-21] MEDS: FLUoxetine 20 MG Cap PO SCH (08:48)
[2019-06-21] MEDS: Torsemide 20 MG Tab PO SCH (08:51)
[2019-06-21] MEDS: CHOLESTYRAMINE 4 GM PO SCH (08:52)
[2019-06-21] MEDS: Lisinopril 5 MG Tab PO SCH (20:34)
[2019-06-21] MEDS: Melatonin 3 MG Tab PO SCH (20:35)
[2019-06-21] MEDS: traZODone 50 MG Tab PO SCH (20:35)
[2019-06-21] MEDS: atorvaSTATin 80 MG Tab PO SCH (20:35)
[2019-06-22] MEDS: Acetaminophen 500 MG Tab PO SCH ×3 (08:08→21:06)
[2019-06-22] MEDS: Apixaban 2.5 MG Tab PO SCH ×2 (08:08→20:57)
[2019-06-22] MEDS: Cholecalciferol (Vitamin D3) 2,000 Unit Cap PO SCH (08:08)
[2019-06-22] MEDS: Omeprazole 20 MG Cap.CR PO SCH ×2 (08:08→20:57)
[2019-06-22] MEDS: FLUoxetine 20 MG Cap PO SCH (08:08)
[2019-06-22] MEDS: Torsemide 20 MG Tab PO SCH (08:09)
[2019-06-22] MEDS: CHOLESTYRAMINE 4 GM PO SCH (08:11)
[2019-06-22] MEDS: Metoprolol Succinate 25 MG Tab.ER PO SCH ×2 (08:42→20:57)
--- NOTE | 2019-06-22 12:58 | PCM.DCSUM1 ---
Discharge Summary - Hospital Course Free Text/Narrative:: Has continued to make progress with PT and OT. VS stable, afebrile. Denies specific pain. Diagnosis: Stroke: Yes Modified [place] Scale: No Symptoms at All Modified [place] Scale Score: 0 - Discharge Data Discharge Date: 06/22/19 Discharge Disposition: DC/Tfer to [facility] Condition: Fair - Referral to Home Health Primary Care Physician: PCP None - Patient Summary/Data Consults: Consultations 05/23/19 09:33 Consult to Pyridine Recovery Operator [CONS] Routine Comment: Physician Instructions: Quantity: Consult to Home Health [CONS] Routine Comment: Physician Instructions: Consult to Infection Prevention [CONS] Routine Comment: Physician Instructions: Consult to Wound Care Services [CONS] Routine Comment: Physician Instructions: OT Evaluation and Treatment [CONS] Routine Please Evaluate and Treat. OT Reason for Consult: ADL's This query below is only for informational purposes and is not editable. Admission Diagnosis/Problem: Weakness PT Evaluation and Treatment [CONS] Routine Please Evaluate and Treat. PT Reason for Consult: Ambulation This query below is only for informational purposes and is not editable. Admission Diagnosis/Problem: Weakness [employer] Evaluation and Treatment [CONS] Routine Please Evaluate and Treat [employer] Reason for Consult: Aphasia This query below is only for informational purposes and is not editable. Admission Diagnosis/Problem: Weakness - Discharge Plan Home Medications: Home Meds Cholecalciferol (Vitamin D3) [Vitamin D3] 2,000 unit PO DAILY 02/23/18 [History] Acetaminophen [Tylenol Extra Strength] 1,000 mg PO Q12H tablet 05/23/19 [Rx] Albuterol/Ipratropium [DuoNeb 3.0-0.5 MG/3 ML] 3 ml NEB Q4H PRN neb 05/23/19 [ Rx] Aspirin 81 mg PO DAILY tab.chew 05/23/19 [Rx] Ciprofloxacin [Ciprofloxacin HCl] 500 mg PO BID tablet 05/23/19 [Rx] Clopidogrel [Plavix] 75 mg PO DAILY tablet 05/23/19 [Rx] Enoxaparin [Lovenox] 30 mg SUBCUT 1400 05/23/19 [History] FLUoxetine HCl [Prozac] 20 mg PO DAILY 05/23/19 [History] Melatonin 3 mg PO BEDTIME tablet 05/23/19 [Rx] Metoprolol Succinate [Toprol XL] 12.5 mg PO DAILY tab.er 05/23/19 [Rx] atorvaSTATin [Lipitor] 80 mg PO BEDTIME tablet 05/23/19 [Rx] lisinopriL [Prinivil] 2.5 mg PO BID tablet 05/23/19 [Rx] traZODone HCl [Trazodone HCl] 50 mg PO BEDTIME 05/23/19 [History] Maintain SpO2% greater than: 92 - Discharge Summary/Plan Comment DC Time >30 min.: Yes Discharge Summary/Plan Comment: Discharge from acute care facility. Admit to skilled nursing care with continued medications and treatments. - General Info Date of Service: 06/22/19 Admission Dx/Problem (Free Text: Admission Diagnosis/Problem Admission Diagnosis/Problem Weakness Subjective Update: VSS, afebrile. Appetite good; denies pain. Continues to make some progress with OT and PT. Functional Status: Reports: Pain Controlled - Review of Systems General: Reports: No Symptoms HEENT: Reports: No Symptoms Pulmonary: Reports: No Symptoms Cardiovascular: Reports: No Symptoms Gastrointestinal: Reports: No Symptoms Musculoskeletal: Reports: No Symptoms Skin: Reports: No Symptoms Neurological: Reports: No Symptoms - Patient Data Vitals - Most Recent: Last Vital Signs Temp 36.8 C 06/22/19 08:00 Pulse 82 06/22/19 08:42 Resp 18 06/22/19 08:00 BP 153/105 H 06/22/19 08:42 Pulse Ox 95 06/22/19 08:00 Weight - Most Recent: 67.358 kg Med Orders - Current: Current Medications Acetaminophen (Tylenol Extra Strength) 500 mg PO Q12H [facility] Last Admin: 06/22/19 08:08 Dose: 500 mg Albuterol/Ipratropium (Duoneb 3.0-0.5 Mg/3 Ml) 3 ml NEB Q4H PRN PRN Reason: Wheezing Apixaban (Eliquis) 2.5 mg PO BID [facility] Last Admin: 06/22/19 08:08 Dose: 2.5 mg Artificial Tears (Liquitears 1.4% Ophth Soln) 1 - 2 ml EYEBOTH Q2H PRN PRN Reason: Dry Eyes Atorvastatin Calcium (Lipitor) 80 mg PO BEDTIME [facility] Last Admin: 06/21/19 20:35 Dose: 80 mg Cholecalciferol (Vitamin D3) 2,000 unit PO DAILY [facility] Last Admin: 06/22/19 08:08 Dose: 2,000 unit Fluoxetine HCl (Prozac) 40 mg PO DAILY [facility] Last Admin: 06/22/19 08:08 Dose: 40 mg Lisinopril (Prinivil) 5 mg PO BEDTIME [facility] Last Admin: 06/21/19 20:34 Dose: 5 mg Melatonin (Melatonin) 3 mg PO BEDTIME [facility] Last Admin: 06/21/19 20:35 Dose: 3 mg Metoprolol Succinate (Toprol Xl) 25 mg PO BID [facility] Last Admin: 06/22/19 08:42 Dose: 25 mg Morphine Sulfate (Morphine 20 Mg/Ml Soln) 1 mg SL Q2H PRN PRN Reason: Pain Cholestyramine 4gm (Oral Suspension) 1 each PO DAILY [facility] Last Admin: 06/22/19 08:11 Dose: 1 each [facility] Last Admin: 06/22/19 08:08 Dose: 20 mg Ondansetron HCl (Zofran Odt) 4 mg PO Q6H PRN PRN Reason: Nausea/Vomiting Last Admin: 06/06/19 19:37 Dose: 4 mg Sodium Chloride (Saline Flush) 10 ml FLUSH ASDIRECTED PRN PRN Reason: Keep Vein Open Last Admin: 06/09/19 08:15 Dose: 10 ml Torsemide (Demadex) 5 mg PO DAILY [facility] Last Admin: 06/22/19 08:09 Dose: 5 mg Trazodone HCl (Trazodone) 50 mg PO BEDTIME [facility] Last Admin: 06/21/19 20:35 Dose: 50 mg Discontinued Medications Acetaminophen (Tylenol Extra Strength) 1,000 mg PO Q12H [facility] Last Admin: 05/23/19 14:25 Dose: Not Given Acetaminophen (Tylenol Extra Strength) 1,000 mg PO Q12H [facility] Last Admin: 05/30/19 07:58 Dose: 1,000 mg Acetaminophen (Tylenol Extra Strength) 500 mg PO Q12H [facility] Last Admin: 05/31/19 23:40 Dose: Not Given Acetaminophen (Tylenol) 500 mg PO BID [facility] Last Admin: 06/03/19 07:52 Dose: 500 mg Artificial Tears (Liquitears 1.4% Ophth Soln) 1 - 2 ml EYEBOTH ASDIRECTED [facility] Artificial Tears (Liquitears 1.4% Ophth Soln) 1 - 2 ml EYEBOTH Q2H [facility] Last Admin: 05/23/19 17:35 Dose: Not Given Aspirin (Aspirin) 81 mg PO DAILY [facility] Last Admin: 06/05/19 08:58 Dose: 81 mg Cholestyramine Resin (Cholestyramine Powder) 4 gm PO DAILY [facility] Last Admin: 06/05/19 08:59 Dose: Not Given Ciprofloxacin (Ciprofloxacin Hcl) 250 mg PO BID [facility] Stop: 06/09/19 08:01 Last Admin: 06/08/19 07:51 Dose: 250 mg Clopidogrel Bisulfate (Plavix) 75 mg PO DAILY [facility] Last Admin: 06/05/19 08:58 Dose: 75 mg Doxycycline Hyclate (Vibramycin) 100 mg PO BID [facility] Stop: 06/13/19 08:01 Last Admin: 06/13/19 08:41 Dose: 100 mg Enoxaparin Sodium (Lovenox) 30 mg SUBCUT 1400 [facility] Last Admin: 05/28/19 14:00 Dose: Not Given Fluoxetine HCl (Prozac) 20 mg PO DAILY [facility] Last Admin: 06/05/19 17:37 Dose: 20 mg Furosemide (Lasix) 20 mg PO ONETIME ONE Stop: 06/12/19 09:45 Last Admin: 06/12/19 12:29 Dose: 20 mg Furosemide (Lasix) Confirm Administered Dose 20 mg .ROUTE .STK-MED ONE Stop: 06/12/19 12:23 Last Admin: 06/12/19 12:33 Dose: Not Given Sodium Chloride (Normal Saline) 500 mls @ 500 mls/hr IV BOLUS ONE Stop: 06/05/19 12:13 Last Admin: 06/05/19 13:58 Dose: 500 mls/hr Lisinopril (Prinivil) 2.5 mg PO BID [facility] Last Admin: 05/28/19 07:30 Dose: 2.5 mg Lisinopril (Prinivil) Confirm Administered Dose 2.5 mg .ROUTE .STK-MED ONE Stop: 05/24/19 20:13 Last Admin: 05/24/19 20:36 Dose: Not Given Lisinopril (Prinivil) 5 mg PO BID [facility] Last Admin: 06/05/19 14:00 Dose: Not Given Lisinopril (Prinivil) Confirm Administered Dose 5 mg .ROUTE .STK-MED ONE Stop: 06/11/19 20:02 Last Admin: 06/11/19 20:31 Dose: Not Given Lisinopril (Prinivil) 5 mg PO ONETIME ONE Stop: 06/11/19 20:01 Last Admin: 06/11/19 20:20 Dose: 5 mg Lisinopril (Prinivil) 5 mg PO DAILY [facility] Last Admin: 06/12/19 12:25 Dose: 5 mg Lisinopril (Prinivil) 5 mg PO BID [facility] Last Admin: 06/14/19 08:39 Dose: 5 mg Methylphenidate HCl (Ritalin) 5 mg PO DAILY [facility] Last Admin: 06/19/19 07:50 Dose: 5 mg Metoprolol Succinate (Toprol Xl) 12.5 mg PO DAILY [facility] Last Admin: 05/27/19 07:48 Dose: 12.5 mg Metoprolol Succinate (Toprol Xl) 12.5 mg PO ONETIME ONE Stop: 05/27/19 12:01 Last Admin: 05/27/19 13:00 Dose: 12.5 mg Metoprolol Succinate (Toprol Xl) 12.5 mg PO BEDTIME [facility] Last Admin: 05/27/19 20:00 Dose: Not Given Metoprolol Succinate (Toprol Xl) Confirm Administered Dose 25 mg .ROUTE .STK- MED ONE Stop: 05/27/19 17:15 Last Admin: 05/27/19 17:25 Dose: Not Given Metoprolol Succinate (Toprol Xl) 25 mg PO BEDTIME [facility] Last Admin: 05/28/19 19:49 Dose: 25 mg Metoprolol Succinate (Toprol Xl) 12.5 mg PO ONETIME ONE Stop: 05/28/19 07:45 Last Admin: 05/28/19 08:00 Dose: 12.5 mg Metoprolol Succinate (Toprol Xl) 37.5 mg PO BEDTIME [facility] Last Admin: 06/13/19 19:38 Dose: 37.5 mg Metoprolol Succinate (Toprol Xl) Confirm Administered Dose 25 mg .ROUTE .STK- MED ONE Stop: 06/14/19 12:39 Last Admin: 06/14/19 13:31 Dose: Not Given Ondansetron HCl (Zofran Odt) Confirm Administered Dose 4 mg .ROUTE .STK-MED ONE Stop: 06/06/19 19:31 Last Admin: 06/06/19 19:38 Dose: Not Given Pantoprazole Sodium (Protonix) 40 mg PO DAILY [facility] Last Admin: 06/08/19 07:51 Dose: 40 mg Torsemide (Demadex) 5 mg PO DAILY [facility] Trazodone HCl (Trazodone) 50 mg PO BEDTIME [facility] Last Admin: 06/04/19 19:29 Dose: 50 mg Trazodone HCl (Trazodone) 50 mg PO BEDTIME PRN PRN Reason: Insomnia Last Admin: 06/07/19 20:37 Dose: 50 mg Tuberculin PPD (Aplisol) 5 unit IDERM ONETIME ONE Stop: 05/23/19 09:34 Last Admin: 05/23/19 14:46 Dose: 5 unit Tuberculin PPD (Aplisol) 5 unit IDERM ONETIME ONE Stop: 06/06/19 07:01 Last Admin: 06/06/19 10:54 Dose: 5 unit - Exam Quality Assessment: Denies: Supplemental Oxygen General: Reports: Alert, Oriented HEENT: Reports: Pupils Equal, Pupils Reactive, EOMI, Mucous Membr. Moist/[place] Neck: Reports: Supple Lungs: Reports: Clear to Auscultation, Normal Respiratory Effort GI/Abdominal Exam: Soft, Non-Tender, No Distention Extremities: Normal Inspection, Normal Range of Motion Skin: Reports: Warm, Dry, Intact Neurological: Reports: No New Focal Deficit
[2019-06-22] MEDS: atorvaSTATin 80 MG Tab PO SCH ×2 (20:57→21:07)
[2019-06-22] MEDS: Lisinopril 5 MG Tab PO SCH (20:57)
[2019-06-22] MEDS: traZODone 50 MG Tab PO SCH (20:57)
[2019-06-22] MEDS: Melatonin 3 MG Tab PO SCH (20:57)
[2019-06-23] MEDS: Apixaban 2.5 MG Tab PO SCH ×2 (08:06→21:09)
[2019-06-23] MEDS: Torsemide 20 MG Tab PO SCH (08:06)
[2019-06-23] MEDS: Acetaminophen 500 MG Tab PO SCH ×2 (08:06→21:09)
[2019-06-23] MEDS: Cholecalciferol (Vitamin D3) 2,000 Unit Cap PO SCH (08:07)
[2019-06-23] MEDS: Metoprolol Succinate 25 MG Tab.ER PO SCH ×2 (08:07→21:11)
[2019-06-23] MEDS: FLUoxetine 20 MG Cap PO SCH (08:08)
[2019-06-23] MEDS: Omeprazole 20 MG Cap.CR PO SCH ×2 (08:08→21:09)
[2019-06-23] MEDS: CHOLESTYRAMINE 4 GM PO SCH (15:05)
[2019-06-23] MEDS: Melatonin 3 MG Tab PO SCH (21:09)
[2019-06-23] MEDS: atorvaSTATin 80 MG Tab PO SCH (21:09)
[2019-06-23] MEDS: traZODone 50 MG Tab PO SCH (21:09)
[2019-06-23] MEDS: Lisinopril 5 MG Tab PO SCH (21:11)
[2019-06-24] MEDS: FLUoxetine 20 MG Cap PO SCH (08:48)
[2019-06-24] MEDS: Torsemide 20 MG Tab PO SCH (08:49)
[2019-06-24] MEDS: Omeprazole 20 MG Cap.CR PO SCH ×2 (08:49→20:16)
[2019-06-24] MEDS: Cholecalciferol (Vitamin D3) 2,000 Unit Cap PO SCH (08:49)
[2019-06-24] MEDS: Acetaminophen 500 MG Tab PO SCH ×2 (08:49→20:17)
[2019-06-24] MEDS: CHOLESTYRAMINE 4 GM PO SCH ×2 (08:49→09:20)
[2019-06-24] MEDS: Apixaban 2.5 MG Tab PO SCH ×2 (08:49→20:17)
[2019-06-24] MEDS: Metoprolol Succinate 25 MG Tab.ER PO SCH ×2 (08:50→20:17)
[2019-06-24] MEDS: Ondansetron 4 MG Tab.DIS PO PRN (11:10)
[2019-06-24] MEDS: traZODone 50 MG Tab PO SCH (20:16)
[2019-06-24] MEDS: Melatonin 3 MG Tab PO SCH (20:16)
[2019-06-24] MEDS: atorvaSTATin 80 MG Tab PO SCH (20:16)
[2019-06-24] MEDS: Lisinopril 5 MG Tab PO SCH (20:17)
[2019-06-25] MEDS ORDERED: Sulfamethoxazole/Trimethoprim 800-160 MG Tab PO SCH (09:30)
--- NOTE | 2019-06-25 09:34 | PCM.PN ---
- General Info Date of Service: 06/25/19 Admission Dx/Problem (Free Text): Admission Diagnosis/Problem Admission Diagnosis/Problem Weakness Subjective Update: Patient had been doing well until the past 24 hours when nursing noted that she was sleeping more, not interested in eating or drinking. VSS, afebrile. Functional Status: Reports: Pain Controlled - Review of Systems General: Denies: Fever HEENT: Reports: No Symptoms Pulmonary: Denies: Shortness of Breath, Cough, Wheezing Cardiovascular: Denies: Chest Pain Gastrointestinal: Reports: Diarrhea. Denies: Abdominal Pain, Nausea, Vomiting Musculoskeletal: Reports: No Symptoms Skin: Reports: No Symptoms Neurological: Reports: No Symptoms - Patient Data Vitals - Most Recent: Last Vital Signs Temp 36.7 C 06/25/19 08:00 Pulse 93 06/25/19 08:00 Resp 24 H 06/25/19 08:00 BP 120/62 06/25/19 08:00 Pulse Ox 93 L 06/25/19 08:00 Weight - Most Recent: 67.358 kg Lab Results Last 24 Hours: Laboratory Results - last 24 hr 06/25/19 Range/Units 09:10 Urine Color Yellow Urine Appearance Clear (CLEAR) Urine pH 6.0 (5.0-8.0) Ur Specific [place] 1.025 (1.003-1.030) Urine Protein 100 H (NEGATIVE) mg/dL Urine Glucose (UA) Negative (NEGATIVE) mg/dL Urine Ketones Trace H (NEGATIVE) mg/dL Urine Occult Blood Negative (NEGATIVE) Urine Nitrite Negative (NEGATIVE) Urine Bilirubin Small H (NEGATIVE) Urine Urobilinogen 0.2 (0.2-1.0) E.U./dL Ur Leukocyte Esterase Negative (NEGATIVE) U Hyaline Cast (Auto) Rare /HPF Urine RBC 0-5 H /HPF Urine WBC Not Reportable Ur Epithelial Cells Rare /HPF Urine Bacteria Rare /HPF Med Orders - Current: Current Medications Acetaminophen (Tylenol Extra Strength) 500 mg PO Q12H [facility] Last Admin: 06/24/19 20:17 Dose: 500 mg Albuterol/Ipratropium (Duoneb 3.0-0.5 Mg/3 Ml) 3 ml NEB Q4H PRN PRN Reason: Wheezing Apixaban (Eliquis) 2.5 mg PO BID [facility] Last Admin: 06/24/19 20:17 Dose: 2.5 mg Artificial Tears (Liquitears 1.4% Ophth Soln) 1 - 2 ml EYEBOTH Q2H PRN PRN Reason: Dry Eyes Atorvastatin Calcium (Lipitor) 80 mg PO BEDTIME [facility] Last Admin: 06/24/19 20:16 Dose: 80 mg Cholecalciferol (Vitamin D3) 2,000 unit PO DAILY [facility] Last Admin: 06/24/19 08:49 Dose: 2,000 unit Fluoxetine HCl (Prozac) 60 mg PO DAILY [facility] Last Admin: 06/24/19 08:48 Dose: 60 mg Lisinopril (Prinivil) 5 mg PO BEDTIME [facility] Last Admin: 06/24/19 20:17 Dose: 5 mg Melatonin (Melatonin) 3 mg PO BEDTIME [facility] Last Admin: 06/24/19 20:16 Dose: 3 mg Metoprolol Succinate (Toprol Xl) 25 mg PO BID [facility] Last Admin: 06/24/19 20:17 Dose: 25 mg Morphine Sulfate (Morphine 20 Mg/Ml Soln) 1 mg SL Q2H PRN PRN Reason: Pain Cholestyramine 4gm (Oral Suspension) 1 each PO DAILY [facility] Last Admin: 06/24/19 09:20 Dose: Not Given Omeprazole (Omeprazole) 20 mg PO BIDAC [facility] Last Admin: 06/24/19 20:16 Dose: 20 mg Ondansetron HCl (Zofran Odt) 4 mg PO Q6H PRN PRN Reason: Nausea/Vomiting Last Admin: 06/24/19 11:10 Dose: 4 mg Sodium Chloride (Saline Flush) 10 ml FLUSH ASDIRECTED PRN PRN Reason: Keep Vein Open Last Admin: 06/09/19 08:15 Dose: 10 ml Torsemide (Demadex) 5 mg PO DAILY [facility] Last Admin: 06/24/19 08:49 Dose: 5 mg Trazodone HCl (Trazodone) 50 mg PO BEDTIME [facility] Last Admin: 06/24/19 20:16 Dose: 50 mg Trimethoprim/Sulfamethoxazole (Septra Ds) 1 tab PO BID [facility] Discontinued Medications Acetaminophen (Tylenol Extra Strength) 1,000 mg PO Q12H [facility] Last Admin: 05/23/19 14:25 Dose: Not Given Acetaminophen (Tylenol Extra Strength) 1,000 mg PO Q12H [facility] Last Admin: 05/30/19 07:58 Dose: 1,000 mg Acetaminophen (Tylenol Extra Strength) 500 mg PO Q12H [facility] Last Admin: 05/31/19 23:40 Dose: Not Given Acetaminophen (Tylenol) 500 mg PO BID [facility] Last Admin: 06/03/19 07:52 Dose: 500 mg Artificial Tears (Liquitears 1.4% Ophth Soln) 1 - 2 ml EYEBOTH ASDIRECTED [facility] Artificial Tears (Liquitears 1.4% Ophth Soln) 1 - 2 ml EYEBOTH Q2H [facility] Last Admin: 05/23/19 17:35 Dose: Not Given Aspirin (Aspirin) 81 mg PO DAILY [facility] Last Admin: 06/05/19 08:58 Dose: 81 mg Cholestyramine Resin (Cholestyramine Powder) 4 gm PO DAILY [facility] Last Admin: 06/05/19 08:59 Dose: Not Given Ciprofloxacin (Ciprofloxacin Hcl) 250 mg PO BID [facility] Stop: 06/09/19 08:01 Last Admin: 06/08/19 07:51 Dose: 250 mg Clopidogrel Bisulfate (Plavix) 75 mg PO DAILY [facility] Last Admin: 06/05/19 08:58 Dose: 75 mg Doxycycline Hyclate (Vibramycin) 100 mg PO BID [facility] Stop: 06/13/19 08:01 Last Admin: 06/13/19 08:41 Dose: 100 mg Enoxaparin Sodium (Lovenox) 30 mg SUBCUT 1400 [facility] Last Admin: 05/28/19 14:00 Dose: Not Given Fluoxetine HCl (Prozac) 20 mg PO DAILY [facility] Last Admin: 06/05/19 17:37 Dose: 20 mg Fluoxetine HCl (Prozac) 40 mg PO DAILY [facility] Last Admin: 06/23/19 08:08 Dose: 40 mg Furosemide (Lasix) 20 mg PO ONETIME ONE Stop: 06/12/19 09:45 Last Admin: 06/12/19 12:29 Dose: 20 mg Furosemide (Lasix) Confirm Administered Dose 20 mg .ROUTE .STK-MED ONE Stop: 06/12/19 12:23 Last Admin: 06/12/19 12:33 Dose: Not Given Sodium Chloride (Normal Saline) 500 mls @ 500 mls/hr IV BOLUS ONE Stop: 06/05/19 12:13 Last Admin: 06/05/19 13:58 Dose: 500 mls/hr Lisinopril (Prinivil) 2.5 mg PO BID [facility] Last Admin: 05/28/19 07:30 Dose: 2.5 mg Lisinopril (Prinivil) Confirm Administered Dose 2.5 mg .ROUTE .[facility] ONE Stop: 05/24/19 20:13 Last Admin: 05/24/19 20:36 Dose: Not Given Lisinopril (Prinivil) 5 mg PO BID [facility] Last Admin: 06/05/19 14:00 Dose: Not Given Lisinopril (Prinivil) Confirm Administered Dose 5 mg .[facility]OUTE [facility] ONE Stop: 06/11/19 20:02 Last Admin: 06/11/19 20:31 Dose: Not Given Lisinopril (Prinivil) 5 mg PO ONETIME ONE Stop: 06/11/19 20:01 Last Admin: 06/11/19 20:20 Dose: 5 mg Lisinopril (Prinivil) 5 mg PO DAILY [facility] Last Admin: 06/12/19 12:25 Dose: 5 mg Lisinopril (Prinivil) 5 mg PO BID [facility] Last Admin: 06/14/19 08:39 Dose: 5 mg Methylphenidate HCl (Ritalin) 5 mg PO DAILY [facility] Last Admin: 06/19/19 07:50 Dose: 5 mg Metoprolol Succinate (Toprol Xl) 12.5 mg PO DAILY [facility] Last Admin: 05/27/19 07:48 Dose: 12.5 mg Metoprolol Succinate (Toprol Xl) 12.5 mg PO ONETIME ONE Stop: 05/27/19 12:01 Last Admin: 05/27/19 13:00 Dose: 12.5 mg Metoprolol Succinate (Toprol Xl) 12.5 mg PO BEDTIME [facility] Last Admin: 05/27/19 20:00 Dose: Not Given Metoprolol Succinate (Toprol Xl) Confirm Administered Dose 25 mg .ROUTE .[facility] ONE Stop: 05/27/19 17:15 Last Admin: 05/27/19 17:25 Dose: Not Given Metoprolol Succinate (Toprol Xl) 25 mg PO BEDTIME [facility] Last Admin: 05/28/19 19:49 Dose: 25 mg Metoprolol Succinate (Toprol Xl) 12.5 mg PO ONETIME ONE Stop: 05/28/19 07:45 Last Admin: 05/28/19 08:00 Dose: 12.5 mg Metoprolol Succinate (Toprol Xl) 37.5 mg PO BEDTIME [facility] Last Admin: 06/13/19 19:38 Dose: 37.5 mg Metoprolol Succinate (Toprol Xl) Confirm Administered Dose 25 mg .ROUTE .STK- MED ONE Stop: 06/14/19 12:39 Last Admin: 06/14/19 13:31 Dose: Not Given Ondansetron HCl (Zofran Odt) Confirm Administered Dose 4 mg .ROUTE .STK-MED ONE Stop: 06/06/19 19:31 Last Admin: 06/06/19 19:38 Dose: Not Given Pantoprazole Sodium (Protonix) 40 mg PO DAILY [facility] Last Admin: 06/08/19 07:51 Dose: 40 mg Torsemide (Demadex) 5 mg PO DAILY [facility] Trazodone HCl (Trazodone) 50 mg PO BEDTIME [facility] Last Admin: 06/04/19 19:29 Dose: 50 mg Trazodone HCl (Trazodone) 50 mg PO BEDTIME PRN PRN Reason: Insomnia Last Admin: 06/07/19 20:37 Dose: 50 mg Tuberculin PPD (Aplisol) 5 unit IDERM ONETIME ONE Stop: 05/23/19 09:34 Last Admin: 05/23/19 14:46 Dose: 5 unit Tuberculin PPD (Aplisol) 5 unit IDERM ONETIME ONE Stop: 06/06/19 07:01 Last Admin: 06/06/19 10:54 Dose: 5 unit - Exam General: Alert, No Acute Distress HEENT: Pupils Equal, Pupils Reactive, EOMI, Mucous Membr. Moist/[place] Neck: Supple Lungs: Clear to Auscultation, Normal Respiratory Effort Cardiovascular: Irregular Rhythm GI/Abdominal Exam: Normal Bowel Sounds, Soft, Non-Tender, No Distention Skin: Warm, Dry, Intact Neurological: No New Focal Deficit Psy/Mental Status: Alert Sepsis Event Note - Evaluation Sepsis Screening Result: No Definite Risk - Focused Exam Vital Signs: Vital Signs Temp Pulse Pulse Resp BP Pulse Ox 06/25/19 08:00 36.7 C 130 H 93 24 H 120/62 93 L Date Exam was Performed: 06/25/19 Time Exam was Performed: 09:30 - Problem List Review Problem List Initiated/Reviewed/Updated: Yes - My Orders Last 24 Hours: My Active Orders 06/25/19 09:30 Sulfamethoxazole/Trimethoprim [Septra DS] 1 tab PO BID - Assessment Assessment:: 1) UTI 2) S/P CVA, awaiting transfer - Plan Plan:: Patient to be admitted to Swing bed for rehabilitation and management. We will try to improve her mobility and strength. 06/25/2019 Add Bactrim DS: 1 tablet bid for 7 days.
[2019-06-25] MEDS ORDERED: Sodium Chloride 0.9% 1,000 ML IV SCH ×2 (11:45)
[2019-06-25] MEDS: Omeprazole 20 MG Cap.CR PO SCH ×2 (12:12→20:02)
[2019-06-25] MEDS: Acetaminophen 500 MG Tab PO SCH ×3 (12:13→20:02)
[2019-06-25] MEDS: Metoprolol Succinate 25 MG Tab.ER PO SCH ×2 (12:13→20:03)
[2019-06-25] MEDS: Apixaban 2.5 MG Tab PO SCH ×2 (12:13→20:02)
[2019-06-25] MEDS: Torsemide 20 MG Tab PO SCH (12:13)
[2019-06-25] MEDS: FLUoxetine 20 MG Cap PO SCH ×2 (12:13→14:15)
[2019-06-25] MEDS: CHOLESTYRAMINE 4 GM PO SCH (12:13)
[2019-06-25] MEDS: Cholecalciferol (Vitamin D3) 2,000 Unit Cap PO SCH (12:14)
[2019-06-25] MEDS: Melatonin 3 MG Tab PO SCH (20:02)
[2019-06-25] MEDS: traZODone 50 MG Tab PO SCH (20:02)
[2019-06-25] MEDS: atorvaSTATin 80 MG Tab PO SCH (20:02)
[2019-06-25] MEDS: Lisinopril 5 MG Tab PO SCH (20:03)
[2019-06-26] MEDS: Omeprazole 20 MG Cap.CR PO SCH (07:59)
[2019-06-26] MEDS: FLUoxetine 20 MG Cap PO SCH (08:00)
[2019-06-26] MEDS: Metoprolol Succinate 25 MG Tab.ER PO SCH (08:01)
[2019-06-26] MEDS: Cholecalciferol (Vitamin D3) 2,000 Unit Cap PO SCH (08:01)
[2019-06-26] MEDS: CHOLESTYRAMINE 4 GM PO SCH (08:02)
[2019-06-26] MEDS: Apixaban 2.5 MG Tab PO SCH (08:05)
[2019-06-26] MEDS: Acetaminophen 500 MG Tab PO SCH (08:05)
[2019-06-26] MEDS: Torsemide 20 MG Tab PO SCH (08:05)
--- NOTE | 2019-06-28 12:08 | PCM.PN ---
- General Info Date of Service: 07/07/19 - Patient Data Vitals - Most Recent: Last Vital Signs Temp 98.4 F 06/26/19 07:35 Pulse 102 H 06/26/19 08:01 Resp 14 06/26/19 07:35 BP 155/97 H 06/26/19 08:01 Pulse Ox 91 L 06/26/19 07:35 Weight - Most Recent: 148 lb 8 oz Med Orders - Current: Current Medications Discontinued Medications Acetaminophen (Tylenol Extra Strength) 1,000 mg PO Q12H [facility] Last Admin: 05/23/19 14:25 Dose: Not Given Acetaminophen (Tylenol Extra Strength) 1,000 mg PO Q12H [facility] Last Admin: 05/30/19 07:58 Dose: 1,000 mg Acetaminophen (Tylenol Extra Strength) 500 mg PO Q12H [facility] Last Admin: 05/31/19 23:40 Dose: Not Given Acetaminophen (Tylenol) 500 mg PO BID [facility] Last Admin: 06/03/19 07:52 Dose: 500 mg Acetaminophen (Tylenol Extra Strength) 500 mg PO Q12H [facility] Last Admin: 06/26/19 08:05 Dose: 500 mg Albuterol/Ipratropium (Duoneb 3.0-0.5 Mg/3 Ml) 3 ml NEB Q4H PRN PRN Reason: Wheezing Apixaban (Eliquis) 2.5 mg PO BID [facility] Last Admin: 06/26/19 08:05 Dose: 2.5 mg Artificial Tears (Liquitears 1.4% Ophth Soln) 1 - 2 ml EYEBOTH ASDIRECTED [facility] Artificial Tears (Liquitears 1.4% Ophth Soln) 1 - 2 ml EYEBOTH Q2H [facility] Last Admin: 05/23/19 17:35 Dose: Not Given Artificial Tears (Liquitears 1.4% Ophth Soln) 1 - 2 ml EYEBOTH Q2H PRN PRN Reason: Dry Eyes Aspirin (Aspirin) 81 mg PO DAILY [facility] Last Admin: 06/05/19 08:58 Dose: 81 mg Atorvastatin Calcium (Lipitor) 80 mg PO BEDTIME [facility] Last Admin: 06/25/19 20:02 Dose: 80 mg Cholecalciferol (Vitamin D3) 2,000 unit PO DAILY [facility] Last Admin: 06/26/19 08:01 Dose: 2,000 unit Cholestyramine Resin (Cholestyramine Powder) 4 gm PO DAILY [facility] Last Admin: 06/05/19 08:59 Dose: Not Given Ciprofloxacin (Ciprofloxacin Hcl) 250 mg PO BID [facility] Stop: 06/09/19 08:01 Last Admin: 06/08/19 07:51 Dose: 250 mg Clopidogrel Bisulfate (Plavix) 75 mg PO DAILY [facility] Last Admin: 06/05/19 08:58 Dose: 75 mg Doxycycline Hyclate (Vibramycin) 100 mg PO BID [facility] Stop: 06/13/19 08:01 Last Admin: 06/13/19 08:41 Dose: 100 mg Enoxaparin Sodium (Lovenox) 30 mg SUBCUT 1400 [facility] Last Admin: 05/28/19 14:00 Dose: Not Given Fluoxetine HCl (Prozac) 20 mg PO DAILY [facility] Last Admin: 06/05/19 17:37 Dose: 20 mg Fluoxetine HCl (Prozac) 40 mg PO DAILY [facility] Last Admin: 06/23/19 08:08 Dose: 40 mg Fluoxetine HCl (Prozac) 60 mg PO DAILY [facility] Last Admin: 06/26/19 08:00 Dose: 60 mg Furosemide (Lasix) 20 mg PO ONETIME ONE Stop: 06/12/19 09:45 Last Admin: 06/12/19 12:29 Dose: 20 mg Furosemide (Lasix) Confirm Administered Dose 20 mg .ROUTE .STK-MED ONE Stop: 06/12/19 12:23 Last Admin: 06/12/19 12:33 Dose: Not Given Sodium Chloride (Normal Saline) 500 mls @ 500 mls/hr IV BOLUS ONE Stop: 06/05/19 12:13 Last Admin: 06/05/19 13:58 Dose: 500 mls/hr Sodium Chloride (Normal Saline) 1,000 mls @ 250 mls/hr IV ASDIRECTED [facility] Last Admin: 06/25/19 11:55 Dose: 250 mls/hr Lisinopril (Prinivil) 2.5 mg PO BID [facility] Last Admin: 05/28/19 07:30 Dose: 2.5 mg Lisinopril (Prinivil) Confirm Administered Dose 2.5 mg .ROUTE .STK-MED ONE Stop: 05/24/19 20:13 Last Admin: 05/24/19 20:36 Dose: Not Given Lisinopril (Prinivil) 5 mg PO BID [facility] Last Admin: 06/05/19 14:00 Dose: Not Given Lisinopril (Prinivil) Confirm Administered Dose 5 mg .[facility] ONE Stop: 06/11/19 20:02 Last Admin: 06/11/19 20:31 Dose: Not Given Lisinopril (Prinivil) 5 mg PO ONETIME ONE Stop: 06/11/19 20:01 Last Admin: 06/11/19 20:20 Dose: 5 mg Lisinopril (Prinivil) 5 mg PO DAILY [facility] Last Admin: 06/12/19 12:25 Dose: 5 mg Lisinopril (Prinivil) 5 mg PO BID [facility] Last Admin: 06/14/19 08:39 Dose: 5 mg Lisinopril (Prinivil) 5 mg PO BEDTIME [facility] Last Admin: 06/25/19 20:03 Dose: 5 mg Melatonin (Melatonin) 3 mg PO BEDTIME [facility] Last Admin: 06/25/19 20:02 Dose: 3 mg Methylphenidate HCl (Ritalin) 5 mg PO DAILY [facility] Last Admin: 06/19/19 07:50 Dose: 5 mg Metoprolol Succinate (Toprol Xl) 12.5 mg PO DAILY [facility] Last Admin: 05/27/19 07:48 Dose: 12.5 mg Metoprolol Succinate (Toprol Xl) 12.5 mg PO ONETIME ONE Stop: 05/27/19 12:01 Last Admin: 05/27/19 13:00 Dose: 12.5 mg Metoprolol Succinate (Toprol Xl) 12.5 mg PO BEDTIME [facility] Last Admin: 05/27/19 20:00 Dose: Not Given Metoprolol Succinate (Toprol Xl) Confirm Administered Dose 25 mg .R[facility]TE [facility] ONE Stop: 05/27/19 17:15 Last Admin: 05/27/19 17:25 Dose: Not Given Metoprolol Succinate (Toprol Xl) 25 mg PO BEDTIME [facility] Last Admin: 05/28/19 19:49 Dose: 25 mg Metoprolol Succinate (Toprol Xl) 12.5 mg PO ONETIME ONE Stop: 05/28/19 07:45 Last Admin: 05/28/19 08:00 Dose: 12.5 mg Metoprolol Succinate (Toprol Xl) 37.5 mg PO BEDTIME [facility] Last Admin: 06/13/19 19:38 Dose: 37.5 mg Metoprolol Succinate (Toprol Xl) 25 mg PO BID [facility] Last Admin: 06/26/19 08:01 Dose: 25 mg Metoprolol Succinate (Toprol Xl) Confirm Administered Dose 25 mg .ROUTE .STK- MED ONE Stop: 06/14/19 12:39 Last Admin: 06/14/19 13:31 Dose: Not Given Morphine Sulfate (Morphine 20 Mg/Ml Soln) 1 mg SL Q2H PRN PRN Reason: Pain Cholestyramine 4gm (Oral Suspension) 1 each PO DAILY [facility] Last Admin: 06/26/19 08:02 Dose: 1 each Omeprazole (Omeprazole) 20 mg PO BIDAC [facility] Last Admin: 06/26/19 07:59 Dose: 20 mg Ondansetron HCl (Zofran Odt) 4 mg PO Q6H PRN PRN Reason: Nausea/Vomiting Last Admin: 06/24/19 11:10 Dose: 4 mg Ondansetron HCl (Zofran Odt) Confirm Administered Dose 4 mg .ROUTE .STK-MED ONE Stop: 06/06/19 19:31 Last Admin: 06/06/19 19:38 Dose: Not Given Pantoprazole Sodium (Protonix) 40 mg PO DAILY [facility] Last Admin: 06/08/19 07:51 Dose: 40 mg Sodium Chloride (Saline Flush) 10 ml FLUSH ASDIRECTED PRN PRN Reason: Keep Vein Open Last Admin: 06/09/19 08:15 Dose: 10 ml Torsemide (Demadex) 5 mg PO DAILY [facility] Torsemide (Demadex) 5 mg PO DAILY [facility] Last Admin: 06/26/19 08:05 Dose: 5 mg Trazodone HCl (Trazodone) 50 mg PO BEDTIME [facility] Last Admin: 06/04/19 19:29 Dose: 50 mg Trazodone HCl (Trazodone) 50 mg PO BEDTIME PRN PRN Reason: Insomnia Last Admin: 06/07/19 20:37 Dose: 50 mg Trazodone HCl (Trazodone) 50 mg PO BEDTIME [facility] Last Admin: 06/25/19 20:02 Dose: 50 mg Trimethoprim/Sulfamethoxazole (Septra Ds) 1 tab PO BID [facility] Last Admin: 06/25/19 16:24 Dose: Not Given Tuberculin PPD (Aplisol) 5 unit IDERM ONETIME ONE Stop: 05/23/19 09:34 Last Admin: 05/23/19 14:46 Dose: 5 unit Tuberculin PPD (Aplisol) 5 unit IDERM ONETIME ONE Stop: 06/06/19 07:01 Last Admin: 06/06/19 10:54 Dose: 5 unit - Exam General: Alert, Oriented HEENT: EOMI, Mucous Membr. Moist/[place] Lungs: Normal Respiratory Effort GI/Abdominal Exam: No Distention Extremities: Normal Inspection Psy/Mental Status: Alert, Normal Affect, Normal Mood Sepsis Event Note - Evaluation Sepsis Screening Result: No Definite Risk - Problem List Review Problem List Initiated/Reviewed/Updated: No - Assessment Assessment:: 1) UTI 2) S/P CVA, awaiting transfer - Plan Plan:: Patient to be admitted to Swing bed for rehabilitation and management. We will try to improve her mobility and strength. 06/25/2019 Add Bactrim DS: 1 tablet bid for 7 days.
== END 2019-06-26 11:32 | DRG 57 ==
LOC: LB.MS 05-23 09:33 → UNDODISIN 06-18 12:55
PROVIDERS: ADMIT Family Medicine; ATTEND Family Medicine
DX: I69.351 Hemiplegia and hemiparesis following cerebral infarction affecting right dominant side (principal); I11.0 Hypertensive heart disease with heart failure; I50.9 Heart failure, unspecified; R04.0 Epistaxis; Z88.8 Allergy status to other drugs, medicaments and biological substances; Z88.2 Allergy status to sulfonamides; Z88.5 Allergy status to narcotic agent; Z79.82 Long term (current) use of aspirin; Z79.899 Other long term (current) drug therapy
CPT/HCPCS: 36415; 51701; 51798; 70450; 80048; 80053; 81001; 81003; 83605; 83880; 84443; 84484; 85025; 86580; 87086; 87088; 87186; 92507-GN; 93005; 97110-GO; 97110-GP; 97116-GP; 97530-GO; 97530-GP; 97535-GO; A9270-GY; J1650; J7030; J7040

== ENCOUNTER 2019-07-24 14:38 | Observation (INO) | payer MEDICARE, MEDICAID ==
--- NOTE | 2019-07-24 15:18 | EDM.PDOC ---
ED HPI GENERAL MEDICAL PROBLEM - General Chief Complaint: Lower Extremity Injury/Pain Stated Complaint: FALL AT HOME Time Seen by Provider: 07/24/19 14:45 - History of Present Illness INITIAL COMMENTS - FREE TEXT/NARRATIVE: Qi presents to the emergency department in C-spine immobilization. She has a lift chair at the assisted. She must of activated the button by herself, and was elevated to the point that she slid off the cushion. She was found laying face down. They do not believe that she had a loss of consciousness. She herself denies any headache. She is only localizing pain to her right hip. She really has no other concerns. The nurses that evaluated her, were able to place her on a slider board, and she was carefully lifted up to a stretcher. While in bed, she was logrolled. She was brought directly to x -ray given that her primary and secondary trauma surveys were performed in her room at the [facility]. - Related Data Allergies Allergy/AdvReac Type Severity Reaction Status Date / Time amlodipine [From Norvasc] Allergy Cannot Verified 07/24/19 15:04 Remember celecoxib [From Celebrex] Allergy Cannot Verified 07/24/19 15:04 Remember duloxetine [From Cymbalta] Allergy Cannot Verified 07/24/19 15:04 Remember fentanyl Allergy Cannot Verified 07/24/19 15:04 Remember hydrochlorothiazide Allergy Cannot Verified 07/24/19 15:04 [From Hyzaar] Remember losartan [From Hyzaar] Allergy Cannot Verified 07/24/19 15:04 Remember metronidazole [From Flagyl] Allergy Cannot Verified 07/24/19 15:04 Remember prednisone Allergy Cannot Verified 07/24/19 15:04 Remember tramadol [From Ultram] Allergy Cannot Verified 07/24/19 15:04 Remember Sulfa (Sulfonamide AdvReac Diarrhea Verified 07/24/19 15:04 Antibiotics) Home Meds: Home Meds Cholecalciferol (Vitamin D3) [Vitamin D3] 2,000 unit PO DAILY 02/23/18 [History] Acetaminophen [Tylenol Extra Strength] 1,000 mg PO Q12H tablet 05/23/19 [Rx] Albuterol/Ipratropium [DuoNeb 3.0-0.5 MG/3 ML] 3 ml NEB Q4H PRN neb 05/23/19 [ Rx] Aspirin 81 mg PO DAILY tab.chew 05/23/19 [Rx] Ciprofloxacin [Ciprofloxacin HCl] 500 mg PO BID tablet 05/23/19 [Rx] Clopidogrel [Plavix] 75 mg PO DAILY tablet 05/23/19 [Rx] Enoxaparin [Lovenox] 30 mg SUBCUT 1400 05/23/19 [History] FLUoxetine HCl [Prozac] 20 mg PO DAILY 05/23/19 [History] Melatonin 3 mg PO BEDTIME tablet 05/23/19 [Rx] Metoprolol Succinate [Toprol XL] 12.5 mg PO DAILY tab.er 05/23/19 [Rx] atorvaSTATin [Lipitor] 80 mg PO BEDTIME tablet 05/23/19 [Rx] lisinopriL [Prinivil] 2.5 mg PO BID tablet 05/23/19 [Rx] traZODone HCl [Trazodone HCl] 50 mg PO BEDTIME 05/23/19 [History] Past Medical History HEENT History: Reports: Hard of Hearing, Impaired Vision Cardiovascular History: Reports: Hypertension Respiratory History: Reports: None Other Respiratory History: Wears CPAP at night Gastrointestinal History: Reports: Diverticulosis Other Gastrointestinal History: Uses gluten free diet Genitourinary History: Reports: UTI, Recurrent CMO & PRESIDENT History: Reports: Other CMO & PRESIDENT History: Parity: 2 gravity: 2, 2 vaginal deliveries. no known MICHELLE Musculoskeletal History: Reports: Osteoarthritis Neurological History: Reports: CVA Endocrine/Metabolic History: Reports: Hypothyroidism Oncologic (Cancer) History: Reports: None - Infectious Disease History Infectious Disease History: Reports: Shingles - Past Surgical History Other Respiratory Surgeries/Procedures: no O2 at night GI Surgical History: Reports: Appendectomy, Hernia Repair/Other Female Surgical History: Reports: Hysterectomy, Other (See Below) Other Female Surgeries/Procedures: Prolapsed vagina; bladder repair surgery; large cervical esophagus Other Neurological Surgeries/Procedures: no sensation changes in LEs Musculoskeletal Surgical History: Reports: Other (See Below) Other Musculoskeletal Surgeries/Procedures:: surgery right leg to relieve heal pain; left ankle repair tendon Social & Family History - Family History Family Medical History: Noncontributory Cardiac: Reports: Hypertension GI: Reports: Diverticulitis, Diverticulosis Musculoskeletal: Reports: Arthritis, Osteoarthritis, Osteoporosis Neurological: Reports: Vertigo Other Neurological Family History: Sister had vertigo, Mother and Father from stroke at 78 and 92 respectively Immunologic: Reports: None - Caffeine Use Caffeine Use: Reports: Coffee Review of Systems - Review of Systems Review Of Systems: Comprehensive ROS is negative, except as noted in HPI. Musculoskeletal: Reports: Other (right hip pain) ED EXAM, GENERAL - Physical Exam Exam: See Below Exam Limited By: Language Barrier (secondary to recent CVA) General Appearance: Alert, WD/WN, No Apparent Distress Eye Exam: Bilateral Eye: EOMI, Normal Inspection Throat/Mouth: Normal Voice, No Airway Compromise Head: Atraumatic, Normocephalic Neck: Normal Inspection, Supple, Tender Lateral Respiratory/Chest: No Respiratory Distress, Lungs Clear, Normal Breath Sounds, Chest Non-Tender Cardiovascular: No Edema, No JVD, No Murmur GI/Abdominal: Normal Bowel Sounds, Soft, Non-Tender, Pelvis Stable Extremities: Normal Inspection, Other (Careful palpation of her entire spine reveals some definite tenderness mostly to the left posterior aspect of her cervical region, although she may have some midline discomfort in her thoracic region as well with some associated paravertebral muscle spasm) Neurological: Alert, Oriented Skin Exam: Warm, Dry, Intact Course - Vital Signs Text/Narrative:: Qi had a fall at the assisted. She had extensive imaging without any evidence of spinal, pelvic, or skull fracture, as well as any apparent intracranial injury. At this point, I believe that she would require closer monitoring then can be offered over at the [facility]. Plan to keep her overnight in observation status to follow her neuro exam, and ensure adequate pain control as she is quite sensitive to even oral opioids. - Orders/Labs/Meds Orders: Active Orders 24 hr Category Date Time Status Patient Status [ADT] Routine ADT 07/24/19 15:46 Ordered Cardiac Monitoring [RC] .As Directed Care 07/24/19 15:19 Ordered Cardiac Monitoring [RC] CONTINUOUS Care 07/24/19 15:48 Ordered EKG Documentation Completion [RC] ASDIRECTED Care 07/24/19 15:10 Ordered EKG Documentation Completion [RC] ASDIRECTED Care 07/24/19 15:18 Ordered Neuro Check [RC] Q4H Care 07/24/19 15:54 Ordered Notify Provider Vital Signs [RC] ASDIRECTED Care 07/24/19 15:48 Ordered Up With Assistance [RC] ASDIRECTED Care 07/24/19 15:45 Ordered VTE/DVT Education [RC] Per Unit Routine Care 07/24/19 15:46 Ordered Vital Signs [RC] Q4H Care 07/24/19 15:46 Active Consult to Physical Therapy [PT Evaluation and Cons 07/24/19 15:53 Ordered Treatment] [CONS] Routine Mechanical Soft Diet [DIET] Diet 07/24/19 Dinner Ordered C-Spine [Cervical Spine wo Cont] [CT] Stat Exams 07/24/19 14:47 Ordered Head wo Cont [CT] Stat Exams 07/24/19 14:45 Ordered Hip Min 2V or 3V w Pelvis Rt [CR] Stat Exams 07/24/19 14:50 Taken Thoracic Spine 1V [CR] Stat Exams 07/24/19 14:49 Taken B-TYPE NATRIURETIC PEPTIDE,BNP [CHEM] Stat Lab 07/24/19 15:11 Ordered COMPREHENSIVE METABOLIC PN,CMP [CHEM] Stat Lab 07/24/19 15:10 Ordered LACTATE SEPSIS W/ REFLEX [CHEM] Stat Lab 07/24/19 15:11 Ordered TROPONIN I [CHEM] Stat Lab 07/24/19 15:10 Ordered UA RFX KATHLEEN AND CULT IF INDIC [URIN] Stat Lab 07/24/19 15:10 Ordered Acetaminophen [Tylenol] Med 07/24/19 15:45 Ordered 650 mg PO Q4H PRN Ondansetron [Zofran] Med 07/24/19 15:45 Ordered 4 mg IV Q6H PRN Sodium Chloride 0.9% [Saline Flush] Med 07/24/19 15:45 Ordered 10 ml FLUSH ASDIRECTED PRN diphenhydrAMINE [Benadryl] Med 07/24/19 15:52 Ordered 25 mg IVPUSH Q6H PRN fentaNYL [Sublimaze] Med 07/24/19 15:51 Ordered 12.5 mcg IVPUSH Q5M PRN Saline Lock Insert [OM.PC] Routine Oth 07/24/19 15:45 Ordered Resuscitation Status Routine Resus Stat 07/24/19 15:45 Ordered EKG 12 Lead [EK] Stat Ther 07/24/19 15:10 Ordered EKG 12 Lead [EK] Stat Ther 07/24/19 15:18 Ordered Medication Orders Acetaminophen (Tylenol) 650 mg PO Q4H PRN PRN Reason: Pain (Mild 1-3)/fever Diphenhydramine HCl (Benadryl) 25 mg IVPUSH Q6H PRN PRN Reason: Itching Fentanyl (Sublimaze) 12.5 mcg IVPUSH Q5M PRN PRN Reason: Pain Ondansetron HCl (Zofran) 4 mg IV Q6H PRN PRN Reason: Nausea/Vomiting Sodium Chloride (Saline Flush) 10 ml FLUSH ASDIRECTED PRN PRN Reason: Keep Vein Open Labs: Laboratory Tests 07/24/19 Range/Units 15:15 WBC 8.7 (4.0-11.0) K/uL RBC 4.14 (3.80-5.80) M/uL Hgb 13.5 (11.5-16.5) g/dL Hct 39.3 (37.0-47.0) % MCV 95 (76-96) fL MCH 32.6 H (27.0-32.0) pg MCHC 34.4 (31.0-35.0) g/dL RDW 17.6 H (11.0-16.0) % Plt Count 241 (150-500) K/uL MPV 9.7 (6.0-10.0) fL Neut % (Auto) 66.8 (45.0-70.0) % Lymph % (Auto) 18.2 L (20.0-40.0) % [place] % (Auto) 12.2 H (3.0-10.0) % Eos % (Auto) 2.6 (1.0-5.0) % Baso % (Auto) 0.2 (0.0-0.5) % Neut # (Auto) 5.83 (2.00-7.50) K/uL Lymph # (Auto) 1.59 (1.50-4.00) K/uL [place] # (Auto) 1.07 H (0.20-0.80) K/uL Eos # (Auto) 0.23 (0.04-0.40) K/uL Baso # (Auto) 0.02 (0.02-0.10) K/uL Meds: Medications Generic Name Dose Route Start Last Admin Trade Name Freq PRN Reason Stop Dose Admin Acetaminophen 650 mg 07/24/19 15:45 Tylenol PO Q4H PRN Pain (Mild 1-3)/fever Diphenhydramine HCl 25 mg 07/24/19 15:52 Benadryl IVPUSH Q6H PRN Itching Fentanyl 12.5 mcg 07/24/19 15:51 Sublimaze IVPUSH Q5M PRN Pain Ondansetron HCl 4 mg 07/24/19 15:45 Zofran IV Q6H PRN Nausea/Vomiting Sodium Chloride 10 ml 07/24/19 15:45 Saline Flush FLUSH ASDIRECTED PRN Keep Vein Open Departure - Departure Time of Disposition: 15:00 Disposition: Refer to Observation Condition: Good Clinical Impression: Fall Qualifiers: Encounter type: initial encounter Qualified Code(s): W19.XXXA - Unspecified fall, initial encounter - Discharge Information Referrals: PCP,None [Primary Care Provider] - Forms: ED Department Discharge Sepsis Event Note - Focused Exam Date Exam was Performed: 07/24/19 Time Exam was Performed: 15:54 - My Orders Last 24 Hours: My Active Orders 07/24/19 14:45 Head wo Cont [CT] Stat 07/24/19 14:47 C-Spine [Cervical Spine wo Cont] [CT] Stat 07/24/19 14:49 Thoracic Spine 1V [CR] Stat 07/24/19 14:50 Hip Min 2V or 3V w Pelvis Rt [CR] Stat 07/24/19 15:10 EKG Documentation Completion [RC] ASDIRECTED COMPREHENSIVE METABOLIC PN,CMP [CHEM] Stat TROPONIN I [CHEM] Stat UA RFX KATHLEEN AND CULT IF INDIC [URIN] Stat EKG 12 Lead [EK] Stat 07/24/19 15:11 B-TYPE NATRIURETIC PEPTIDE,BNP [CHEM] Stat LACTATE SEPSIS W/ REFLEX [CHEM] Stat 07/24/19 15:18 EKG Documentation Completion [RC] ASDIRECTED EKG 12 Lead [EK] Stat 07/24/19 15:19 Cardiac Monitoring [RC] .As Directed 07/24/19 15:45 Up With Assistance [RC] ASDIRECTED Acetaminophen [Tylenol] 650 mg PO Q4H PRN Ondansetron [Zofran] 4 mg IV Q6H PRN Sodium Chloride 0.9% [Saline Flush] 10 ml FLUSH ASDIRECTED PRN Saline Lock Insert [OM.PC] Routine Resuscitation Status Routine 07/24/19 15:46 Patient Status [ADT] Routine VTE/DVT Education [RC] Per Unit Routine Vital Signs [RC] Q4H 07/24/19 15:48 Cardiac Monitoring [RC] CONTINUOUS Notify Provider Vital Signs [RC] ASDIRECTED 07/24/19 15:51 fentaNYL [Sublimaze] 12.5 mcg IVPUSH Q5M PRN 07/24/19 15:52 diphenhydrAMINE [Benadryl] 25 mg IVPUSH Q6H PRN 07/24/19 15:53 Consult to Physical Therapy [PT Evaluation and Treatment] [CONS] Routine 07/24/19 15:54 Neuro Check [RC] Q4H 07/24/19 Dinner Mechanical Soft Diet [DIET] - Assessment/Plan Last 24 Hours: My Active Orders 07/24/19 14:45 Head wo Cont [CT] Stat 07/24/19 14:47 C-Spine [Cervical Spine wo Cont] [CT] Stat 07/24/19 14:49 Thoracic Spine 1V [CR] Stat 07/24/19 14:50 Hip Min 2V or 3V w Pelvis Rt [CR] Stat 07/24/19 15:10 EKG Documentation Completion [RC] ASDIRECTED COMPREHENSIVE METABOLIC PN,CMP [CHEM] Stat TROPONIN I [CHEM] Stat UA RFX KATHLEEN AND CULT IF INDIC [URIN] Stat EKG 12 Lead [EK] Stat 07/24/19 15:11 B-TYPE NATRIURETIC PEPTIDE,BNP [CHEM] Stat LACTATE SEPSIS W/ REFLEX [CHEM] Stat 07/24/19 15:18 EKG Documentation Completion [RC] ASDIRECTED EKG 12 Lead [EK] Stat 07/24/19 15:19 Cardiac Monitoring [RC] .As Directed 07/24/19 15:45 Up With Assistance [RC] ASDIRECTED Acetaminophen [Tylenol] 650 mg PO Q4H PRN Ondansetron [Zofran] 4 mg IV Q6H PRN Sodium Chloride 0.9% [Saline Flush] 10 ml FLUSH ASDIRECTED PRN Saline Lock Insert [OM.PC] Routine Resuscitation Status Routine 07/24/19 15:46 Patient Status [ADT] Routine VTE/DVT Education [RC] Per Unit Routine Vital Signs [RC] Q4H 07/24/19 15:48 Cardiac Monitoring [RC] CONTINUOUS Notify Provider Vital Signs [RC] ASDIRECTED 07/24/19 15:51 fentaNYL [Sublimaze] 12.5 mcg IVPUSH Q5M PRN 07/24/19 15:52 diphenhydrAMINE [Benadryl] 25 mg IVPUSH Q6H PRN 07/24/19 15:53 Consult to Physical Therapy [PT Evaluation and Treatment] [CONS] Routine 07/24/19 15:54 Neuro Check [RC] Q4H 07/24/19 Dinner Mechanical Soft Diet [DIET]
[2019-07-24] MEDS ORDERED: Acetaminophen 325 MG Tab PO PRN (15:45)
[2019-07-24] MEDS ORDERED: diphenhydrAMINE 50 MG/ML SDV IVPUSH PRN (15:52)
[2019-07-24] MEDS: fentaNYL 100 MCG/2 ML SDV IVPUSH PRN (16:06)
[2019-07-24] MEDS: Ondansetron 4 MG/2 ML SDV IV PRN (16:11)
--- NOTE | 2019-07-24 16:18 | CRLCT ---
DATE OF SERVICE: 07/24/2019 CLINICAL DATA: fall Unenhanced brain CT: Multislice acquisition through the brain without IV contrast was performed. Comparison is made to a prior exam dated 06/05/2019. There is diffuse cerebral atrophy. There are periventricular lucencies bilaterally consistent with small vessel ischemic change. There is an area of encephalomalacia in the left posterior parietal and occipital region consistent with a prior infarct. No masses or mass effect. No intracranial hemorrhage. No evidence of acute or subacute infarct. Impression: No acute intracranial abnormalities. Dictated by: Kyle Ybarra MD 07/24/2019 3:56PM [facility]
[2019-07-24] MEDS: fentaNYL 100 MCG/2 ML SDV ONE (16:19)
[2019-07-24] MEDS: Ondansetron 4 MG/2 ML SDV ONE (16:19)
[2019-07-24] MEDS: Sodium Chloride 0.9% 10 ML Syringe FLUSH PRN (16:19)
--- NOTE | 2019-07-24 16:24 | CRLCT ---
DATE OF SERVICE: 07/24/2019 CLINICAL DATA: fall Cervical spine CT: Multislice axial acquisition was performed. Axial and sagittal and coronal reformations are reviewed. No priors. There is diffuse osteopenia. No acute fracture or dislocation. No focal lytic or blastic bone lesions. There is slight anterolisthesis of C2 on C3 and C3 on C4. There disc margins with disc space narrowing at the C3-4, C4-5, C5-6, and C6-7 levels. There is facet joint hypertrophy throughout the cervical spine. There is fusion of the C 3-4 facet joint on the right. There are degenerative changes involving the atlantoaxial articulation. There is a gas and soft tissue density containing structure at the T1 level lateral to the esophagus on the left and posterior to the left lobe of the thyroid which may be an esophageal diverticulum. No other soft tissue abnormalities. Dictated by: Kyle Ybarra MD 07/24/2019 4:06 PM [facility]
--- NOTE | 2019-07-24 16:27 | CR ---
DATE OF SERVICE: 07/24/2019 CLINICAL DATA: fall AP thoracic spine: No priors. There is diffuse osteopenia. There is moderate right convexity rotoscoliosis of the mid lumbar spine. There is degenerative disc disease throughout the thoracic spine with disc space narrowing diffusely. No acute abnormalities. Dictated by: Kyle Ybarra MD 07/24/2019 3:57PM [facility]
--- NOTE | 2019-07-24 16:30 | CR ---
DATE OF SERVICE: 07/24/2019 CLINICAL DATA: fall Pelvis and right hip: Comparison made to prior exam dated 08/23/2013. There are moderate osteoarthritic changes of both hip joints. There are degenerative changes involving the SI joints and symphysis pubis. There is deformity of the superior and inferior pubic rami on the left probably related to prior trauma, unchanged from the prior exam. There is degenerative disc disease at multiple levels in the lower lumbar spine. No acute fracture or dislocation. No focal lytic or blastic bone lesions. Dictated by: Kyle Ybarra MD 07/24/2019 3:54PM [facility]
[2019-07-24] MEDS: Metoprolol Succinate 25 MG Tab.ER PO ONE (17:08)
[2019-07-24] MEDS: Metoprolol Tartrate 25 MG Tab ONE (17:14)
[2019-07-24] MEDS ORDERED: NS + KCl 20mEq/L 1,000 ML IV SCH (17:45)
[2019-07-24] MEDS: Potassium Chloride 20 MEQ Tab.ER PO ONE (19:55)
[2019-07-25] MEDS: Potassium Chloride 20 MEQ Tab.ER PO SCH (08:17)
[2019-07-25] MEDS ORDERED: Metoprolol Tartrate 25 MG Tab PO ONE (12:38)
[2019-07-25] MEDS: Metoprolol Succinate 25 MG Tab.ER PO ONE (12:48)
[2019-07-25] MEDS: Magnesium Oxide 400 MG Tab PO ONE (14:08)
--- NOTE | 2019-07-25 14:49 | PCM.DCSUM1 ---
Discharge Summary - Hospital Course Free Text/Narrative:: Qi presented after a pretty significant fall in the assisted. She did have some neck and thoracic spine pain. Seeing she was on Plavix, we did do a CT scan and all the imaging was reassuring. We observed her overnight. She had her usual atrial fibrillation with a rapid ventricular response. She tolerated this quite well. She eventually was restarted on her metoprolol. Her blood pressure was followed. She did receive 1 dose of 12.5 mcg of fentanyl , and this seemed to agree with her after premedication with Benadryl and Zofran. Technically her daughter wanted this on her allergy list which is pretty large, just so that she avoided getting copious amounts of opioids which seemed to make her confused. Her hospital stay was unremarkable in terms of her neurologic status. She seemed to sleep well overnight, and be back to her baseline at the time of discharge. She was noted to have some moderate hypokalemia which was replaced along with her magnesium. She was otherwise discharged back to her long-term nursing care bed. - Discharge Data Discharge Date: 07/25/19 Discharge Disposition: DC/[facility]fer to [facility] Condition: Good - Referral to Home Health Primary Care Physician: PCP None - Patient Summary/Data Consults: Consultations 07/24/19 15:53 Consult to Physical Therapy [PT Evaluation and Treatment] [CONS] Routine Please Evaluate and Treat. PT Reason for Consult: Strengthening This query below is only for informational purposes and is not editable. Admission Diagnosis/Problem: Fall - Patient Instructions Diet: Mechanical Soft Activity, Other: Up with assist Driving: Do Not Drive ( do not drive of unclear) - Discharge Plan Home Medications: Home Meds Cholecalciferol (Vitamin D3) [Vitamin D3] 2,000 unit PO DAILY 02/23/18 [History] Albuterol/Ipratropium [DuoNeb 3.0-0.5 MG/3 ML] 3 ml NEB Q4H PRN neb 05/23/19 [ Rx] atorvaSTATin [Lipitor] 80 mg PO BEDTIME tablet 05/23/19 [Rx] traZODone HCl [Trazodone HCl] 50 mg PO BEDTIME 05/23/19 [History] Acetaminophen [Acetaminophen Extra Strength] 500 mg PO BID 07/24/19 [History] Apixaban [Eliquis] 2.5 mg PO BID 07/24/19 [History] Cholestyramine/Sucrose [Cholestyramine] 4 gm PO DAILY 07/24/19 [History] Levothyroxine Sodium [Synthroid] 25 mcg PO DAILY 07/24/19 [History] Mag Hydrox/Aluminum Hyd/Simeth [Mylanta Maximum Strength Liq] 20 mg PO DAILY PRN 07/24/19 [History] Melatonin 3 mg PO DAILY 07/24/19 [History] Metoprolol Succinate [Toprol XL] 25 mg PO BID 07/24/19 [History] Omeprazole 20 mg PO BID 07/24/19 [History] Torsemide 5 mg PO DAILY 07/24/19 [History] lisinopriL [Prinivil] 5 mg PO BID 07/24/19 [History] Patient Handouts: Fall Prevention in Hospitals, Adult Forms: ED Department Discharge Referrals: PCP,None [Primary Care Provider] - - Discharge Summary/Plan Comment DC Time >30 min.: No - General Info Date of Service: 07/25/19 Functional Status: Reports: Pain Controlled - Review of Systems Cardiovascular: Reports: No Symptoms Gastrointestinal: Reports: No Symptoms Neurological: Reports: No Symptoms - Patient Data Vitals - Most Recent: Last Vital Signs Temp 98.1 F 07/25/19 14:10 Pulse 142 H 07/25/19 14:10 Resp 18 07/25/19 14:10 BP 145/98 H 07/25/19 14:10 Pulse Ox 95 07/25/19 14:10 Weight - Most Recent: 146 lb I&O - Last 24 hours: Intake & Output 07/24/19 07/25/19 07/25/19 22:59 06:59 14:59 Intake Total 900 Output Total 1 Balance 899 Lab Results - Last 24 hrs: Laboratory Results - last 24 hr 07/24/19 07/24/19 07/24/19 Range/Units 15:15 15:15 15:15 WBC 8.7 (4.0-11.0) K/uL RBC 4.14 (3.80-5.80) M/uL Hgb 13.5 (11.5-16.5) g/dL Hct 39.3 (37.0-47.0) % MCV 95 (76-96) fL MCH 32.6 H (27.0-32.0) pg MCHC 34.4 (31.0-35.0) g/dL RDW 17.6 H (11.0-16.0) % Plt Count 241 (150-500) K/uL MPV 9.7 (6.0-10.0) fL Neut % (Auto) 66.8 (45.0-70.0) % Lymph % (Auto) 18.2 L (20.0-40.0) % [place] % (Auto) 12.2 H (3.0-10.0) % Eos % (Auto) 2.6 (1.0-5.0) % Baso % (Auto) 0.2 (0.0-0.5) % Neut # (Auto) 5.83 (2.00-7.50) K/uL Lymph # (Auto) 1.59 (1.50-4.00) K/uL [place] # (Auto) 1.07 H (0.20-0.80) K/uL Eos # (Auto) 0.23 (0.04-0.40) K/uL Baso # (Auto) 0.02 (0.02-0.10) K/uL Sodium 143 (136-145) mmol/L Potassium 2.8 L* D (3.5-5.1) mmol/L Chloride 104 (98-107) mmol/L Carbon Dioxide 26.2 (21.0-32.0) mmol/L Anion Gap 15.6 H (5.0-15.0) mmol/L BUN 11 D (8-26) mg/dL Creatinine 1.17 H (0.55-1.02) mg/dL Est Cr Clr Drug Dosing TNP Estimated GFR (MDRD) 44 L (>60) MLS/MIN BUN/Creatinine Ratio 9.4 (6-25) Glucose 117 H (74-100) mg/dL Lactic Acid (0.4-2.0) mmol/L Calcium 8.6 (8.5-10.1) mg/dL Magnesium (1.8-2.4) mg/dL Total Bilirubin 0.6 (0.0-1.0) mg/dL AST 22 (15-37) U/L ALT 23 (12-78) U/L Alkaline Phosphatase 75 (46-116) U/L Troponin I 0.028 D (0.000-0.060) ng/mL B-Natriuretic Peptide 3856 H (0-450) pg/mL Total Protein 6.3 L (6.4-8.2) g/dL Albumin 2.8 L (3.4-5.0) g/dL Globulin 3.5 (2.2-4.2) g/dL Albumin/Globulin Ratio 0.8 (0.8-2.0) Urine Color Urine Appearance (CLEAR) Urine pH (5.0-8.0) Ur Specific [place] (1.003-1.030) Urine Protein (NEGATIVE) mg/dL Urine Glucose (UA) (NEGATIVE) mg/dL Urine Ketones (NEGATIVE) mg/dL Urine Occult Blood (NEGATIVE) Urine Nitrite (NEGATIVE) Urine Bilirubin (NEGATIVE) Urine Urobilinogen (0.2-1.0) E.U./dL Ur Leukocyte Esterase (NEGATIVE) Urine RBC /HPF Urine WBC /HPF Ur Squamous Epith Cells /HPF Amorphous Sediment /HPF Urine Bacteria /HPF 07/24/19 07/24/19 07/25/19 Range/Units 15:15 20:00 12:40 WBC (4.0-11.0) K/uL RBC (3.80-5.80) M/uL Hgb (11.5-16.5) g/dL Hct (37.0-47.0) % MCV (76-96) fL MCH (27.0-32.0) pg MCHC (31.0-35.0) g/dL RDW (11.0-16.0) % Plt Count (150-500) K/uL MPV (6.0-10.0) fL Neut % (Auto) (45.0-70.0) % Lymph % (Auto) (20.0-40.0) % [place] % (Auto) (3.0-10.0) % Eos % (Auto) (1.0-5.0) % Baso % (Auto) (0.0-0.5) % Neut # (Auto) (2.00-7.50) K/uL Lymph # (Auto) (1.50-4.00) K/uL [place] # (Auto) (0.20-0.80) K/uL Eos # (Auto) (0.04-0.40) K/uL Baso # (Auto) (0.02-0.10) K/uL Sodium 143 (136-145) mmol/L Potassium 3.6 D (3.5-5.1) mmol/L Chloride 107 (98-107) mmol/L Carbon Dioxide 23.5 (21.0-32.0) mmol/L Anion Gap 16.1 H (5.0-15.0) mmol/L BUN 11 (8-26) mg/dL Creatinine 1.17 H (0.55-1.02) mg/dL Est Cr Clr Drug Dosing 29.33 Estimated GFR (MDRD) 44 L (>60) MLS/MIN BUN/Creatinine Ratio 9.4 (6-25) Glucose 152 H (74-100) mg/dL Lactic Acid 1.7 (0.4-2.0) mmol/L Calcium 8.2 L (8.5-10.1) mg/dL Magnesium 1.5 L (1.8-2.4) mg/dL Total Bilirubin (0.0-1.0) mg/dL AST (15-37) U/L ALT (12-78) U/L Alkaline Phosphatase (46-116) U/L Troponin I (0.000-0.060) ng/mL B-Natriuretic Peptide (0-450) pg/mL Total Protein (6.4-8.2) g/dL Albumin (3.4-5.0) g/dL Globulin (2.2-4.2) g/dL Albumin/Globulin Ratio (0.8-2.0) Urine Color Yellow Urine Appearance Cloudy (CLEAR) Urine pH 6.0 (5.0-8.0) Ur Specific [place] 1.025 (1.003-1.030) Urine Protein 100 H (NEGATIVE) mg/dL Urine Glucose (UA) Negative (NEGATIVE) mg/dL Urine Ketones Trace H (NEGATIVE) mg/dL Urine Occult Blood Negative (NEGATIVE) Urine Nitrite Positive H (NEGATIVE) Urine Bilirubin Negative (NEGATIVE) Urine Urobilinogen 0.2 (0.2-1.0) E.U./dL Ur Leukocyte Esterase Negative (NEGATIVE) Urine RBC 0-5 H /HPF Urine WBC 5-10 H /HPF Ur Squamous Epith Cells Moderate /HPF Amorphous Sediment Many /HPF Urine Bacteria Moderate H /HPF Med Orders - Current: Current Medications Acetaminophen (Tylenol) 650 mg PO Q4H PRN PRN Reason: Pain (Mild 1-3)/fever Diphenhydramine HCl (Benadryl) 25 mg IVPUSH Q6H PRN PRN Reason: Itching Fentanyl (Sublimaze) 12.5 mcg IVPUSH Q5M PRN PRN Reason: Pain Last Admin: 07/24/19 16:06 Dose: 12.5 mcg Potassium Chloride/Sodium Chloride (Normal Saline With 20 Meq Kcl) 1,000 mls @ 125 mls/hr IV ASDIRECTED MICHAEL Ondansetron HCl (Zofran) 4 mg IV Q6H PRN PRN Reason: Nausea/Vomiting Last Admin: 07/24/19 16:11 Dose: 4 mg Potassium Chloride (Klor-Con M20) 20 meq PO BIDMEALS MICHAEL Last Admin: 07/25/19 08:17 Dose: 20 meq Sodium Chloride (Saline Flush) 10 ml FLUSH ASDIRECTED PRN PRN Reason: Keep Vein Open Last Admin: 07/24/19 16:19 Dose: 10 ml Discontinued Medications Fentanyl (Sublimaze) Confirm Administered Dose 100 mcg .ROUTE .STK-MED ONE Stop: 07/24/19 16:15 Last Admin: 07/24/19 16:19 Dose: Not Given Magnesium Oxide (Magnesium Oxide) 800 mg PO ONETIME ONE Stop: 07/25/19 13:39 Last Admin: 07/25/19 14:08 Dose: 800 mg Metoprolol Succinate (Toprol Xl) 25 mg PO ONETIME ONE Stop: 07/24/19 16:34 Last Admin: 07/24/19 17:08 Dose: 25 mg Metoprolol Succinate (Toprol Xl) 25 mg PO ONETIME ONE Stop: 07/25/19 12:42 Last Admin: 07/25/19 12:48 Dose: 25 mg Metoprolol Tartrate (Lopressor) Confirm Administered Dose 25 mg .ROUTE .STK-MED ONE Stop: 07/24/19 16:45 Last Admin: 07/24/19 17:14 Dose: Not Given Metoprolol Tartrate (Lopressor) 25 mg PO ONETIME ONE Stop: 07/25/19 12:39 Ondansetron HCl (Zofran) Confirm Administered Dose 4 mg .ROUTE .STK-MED ONE Stop: 07/24/19 16:15 Last Admin: 07/24/19 16:19 Dose: Not Given Potassium Chloride (Klor-Con M20) 20 meq PO ONETIME ONE Stop: 07/24/19 17:41 Last Admin: 07/24/19 19:55 Dose: 20 meq - Exam General: Reports: Alert, Oriented HEENT: Reports: EOMI, Mucous Membr. Moist/[place] Neck: Reports: Supple Lungs: Reports: Clear to Auscultation, Normal Respiratory Effort Cardiovascular: Reports: Irregular Rhythm, Tachycardia GI/Abdominal Exam: Normal Bowel Sounds, Soft, Non-Tender Back Exam: Reports: Normal Inspection, Full Range of Motion Extremities: Normal Inspection, Normal Range of Motion, Non-Tender Skin: Reports: Warm, Dry Neurological: Reports: No New Focal Deficit Psy/Mental Status: Reports: Alert, Normal Affect
== END 2019-07-25 14:45 ==
LOC: LB.ED 14:38 → LB.MS 15:45
PROVIDERS: ADMIT Family Medicine; ATTEND Family Medicine
DX: M54.2 Cervicalgia (principal); M54.6 Pain in thoracic spine; M25.551 Pain in right hip; I10 Essential (primary) hypertension; E03.9 Hypothyroidism, unspecified; E87.6 Hypokalemia; I48.91 Unspecified atrial fibrillation; Z88.8 Allergy status to other drugs, medicaments and biological substances; Z88.6 Allergy status to analgesic agent; Z88.2 Allergy status to sulfonamides; Z88.5 Allergy status to narcotic agent; Z88.1 Allergy status to other antibiotic agents; Z79.82 Long term (current) use of aspirin; Z79.899 Other long term (current) drug therapy; Z79.01 Long term (current) use of anticoagulants; W07.XXXA Fall from chair, initial encounter; Y92.129 Unspecified place in nursing home as the place of occurrence of the external cause
CPT/HCPCS: 36415; 70450; 72020; 72125; 73502-RT; 80048; 80053; 81001; 81003; 83605; 83735; 83880; 84484; 85025; 87086; 87088; 87186; 93005; 99217; 99218; 99285-25; A9270-GY; J2405; J3010

== ENCOUNTER 2019-08-17 14:05 | Inpatient (IN) | payer MEDICARE, MEDICAID ==
--- NOTE | 2019-08-17 14:37 | EDM.PDOC ---
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 According to [facility] staff, the patient has not been talking and "isn't herself" today. Staff state that she has been complaining of chest pain as well. Patient denies chest pain to me. She denies difficulty breathing, headache, or abdominal pain. She has not had any recent falls. There is no history of recent acute illness. She has not had a fever. - Related Data Allergies Allergy/AdvReac Type Severity Reaction Status Date / Time amlodipine [From Norvasc] Allergy Cannot Verified 08/17/19 14:28 Remember celecoxib [From Celebrex] Allergy Cannot Verified 08/17/19 14:28 Remember duloxetine [From Cymbalta] Allergy Cannot Verified 08/17/19 14:28 Remember fentanyl Allergy Cannot Verified 08/17/19 14:28 Remember hydrochlorothiazide Allergy Cannot Verified 08/17/19 14:28 [From Hyzaar] Remember losartan [From Hyzaar] Allergy Cannot Verified 08/17/19 14:28 Remember metronidazole [From Flagyl] Allergy Cannot Verified 08/17/19 14:28 Remember prednisone Allergy Cannot Verified 08/17/19 14:28 Remember tramadol [From Ultram] Allergy Cannot Verified 08/17/19 14:28 Remember Sulfa (Sulfonamide AdvReac Diarrhea Verified 08/17/19 14:28 Antibiotics) Home Meds: Home Meds Cholecalciferol (Vitamin D3) [Vitamin D3] 2,000 unit PO DAILY 02/23/18 [History] Albuterol/Ipratropium [DuoNeb 3.0-0.5 MG/3 ML] 3 ml NEB Q4H PRN neb 05/23/19 [ Rx] atorvaSTATin [Lipitor] 80 mg PO BEDTIME tablet 05/23/19 [Rx] traZODone HCl [Trazodone HCl] 50 mg PO BEDTIME 05/23/19 [History] Acetaminophen [Acetaminophen Extra Strength] 500 mg PO BID 07/24/19 [History] Apixaban [Eliquis] 2.5 mg PO BID 07/24/19 [History] Cholestyramine/Sucrose [Cholestyramine] 4 gm PO DAILY 07/24/19 [History] Levothyroxine Sodium [Synthroid] 25 mcg PO DAILY 07/24/19 [History] Mag Hydrox/Aluminum Hyd/Simeth [Mylanta Maximum Strength Liq] 20 mg PO DAILY PRN 07/24/19 [History] Melatonin 3 mg PO DAILY 07/24/19 [History] Metoprolol Succinate [Toprol XL] 25 mg PO BID 07/24/19 [History] Omeprazole 20 mg PO BID 07/24/19 [History] Torsemide 5 mg PO DAILY 07/24/19 [History] lisinopriL [Prinivil] 5 mg PO BID 07/24/19 [History] FLUoxetine HCl [Prozac] 20 mg DAILY 08/17/19 [History] Past Medical History HEENT History: Reports: Hard of Hearing, Impaired Vision Cardiovascular History: Reports: Hypertension Respiratory History: Reports: None Other Respiratory History: Wears CPAP at night Gastrointestinal History: Reports: Diverticulosis Other Gastrointestinal History: Uses gluten free diet Genitourinary History: Reports: UTI, Recurrent [employer] History: Reports: Other [employer] INSTRUCTOR History: Parity: 2 gravity: 2, 2 vaginal deliveries. no known MICHELLE Musculoskeletal History: Reports: Osteoarthritis Neurological History: Reports: CVA Endocrine/Metabolic History: Reports: Hypothyroidism Oncologic (Cancer) History: Reports: None - Infectious Disease History Infectious Disease History: Reports: Shingles - Past Surgical History Other Respiratory Surgeries/Procedures: no O2 at night GI Surgical History: Reports: Appendectomy, Hernia Repair/Other Female Surgical History: Reports: Hysterectomy, Other (See Below) Other Female Surgeries/Procedures: Prolapsed vagina; bladder repair surgery; large cervical esophagus Other Neurological Surgeries/Procedures: no sensation changes in LEs Musculoskeletal Surgical History: Reports: Other (See Below) Other Musculoskeletal Surgeries/Procedures:: surgery right leg to relieve heal pain; left ankle repair tendon Social & Family History - Family History Family Medical History: Noncontributory Cardiac: Reports: Hypertension GI: Reports: Diverticulitis, Diverticulosis Musculoskeletal: Reports: Arthritis, Osteoarthritis, Osteoporosis Neurological: Reports: Vertigo Other Neurological Family History: Sister had vertigo, Mother and Father from stroke at 78 and 92 respectively Immunologic: Reports: None - Caffeine Use Caffeine Use: Reports: None ED ROS GENERAL - Review of Systems Review Of Systems: Comprehensive ROS is negative, except as noted in HPI. Constitutional: Denies: Fever, Weakness, Fatigue, Decreased Appetite HEENT: Reports: No Symptoms Respiratory: Denies: Shortness of Breath, Cough Cardiovascular: Reports: Chest Pain. Denies: Blood Pressure Problem GI/Abdominal: Denies: Abdominal Pain, Diarrhea, Nausea, Vomiting Skin: Reports: No Symptoms Neurological: Reports: No Symptoms ED EXAM, GENERAL - Physical Exam Exam: See Below Exam Limited By: Language Barrier (aphasia) General Appearance: Alert, WD/WN, No Apparent Distress Eye Exam: Bilateral Eye: PERRL Ears: Normal External Exam Nose: Normal Inspection Throat/Mouth: Normal Inspection, Normal Oropharynx Head: Atraumatic, Normocephalic Neck: Normal Inspection, Supple, Non-Tender Respiratory/Chest: No Respiratory Distress, Lungs Clear, Normal Breath Sounds, No Accessory Muscle Use Cardiovascular: Regular Rate, Rhythm GI/Abdominal: Normal Bowel Sounds, Soft, No Distention, Other (grimaces when abdomen is palpated) Extremities: Normal Capillary Refill Neurological: Alert Psychiatric: Normal Affect, Normal Mood Skin Exam: Warm, Dry EKG INTERPRETATION EKG Date: 08/17/19 Time: 14:05 Rhythm: A-Fib Rate (Beats/Min): 126 [place]: Normal P-Wave: Present QRS: Normal ST-T: Normal QT: Normal Course - Vital Signs Last Recorded V/S: Last Vital Signs Temp 36.3 C 08/17/19 14:05 Pulse 123 H 08/17/19 15:33 Resp 16 08/17/19 15:33 BP 124/87 08/17/19 15:33 Pulse Ox 97 08/17/19 15:33 - Orders/Labs/Meds Orders: Active Orders 24 hr Category Date Time Status EKG Documentation Completion [RC] ASDIRECTED Care 08/17/19 14:24 Active Abdomen 1V Flat [CR] Stat Exams 08/17/19 14:24 Taken Medication Orders Potassium Chloride/Dextrose/Sod Cl (D5 1/2 Ns W/ 20 Meq/L Kcl) 1,000 mls @ 100 mls/hr IV ASDIRECTED MICHAEL Ceftriaxone Sodium 1 gm/ (Sodium Chloride) 50 mls @ 200 mls/hr IV ONETIME ONE Stop: 05/22/20 16:14 Last Admin: 08/17/19 15:33 Dose: 200 mls/hr Ceftriaxone Sodium 1 gm/ (Sodium Chloride) 50 mls @ 200 mls/hr IV Q24H MICHAEL Lorazepam (Ativan) 1 mg IVPUSH BEDTIME PRN PRN Reason: Sleep Non-Formulary Medication (Acetaminophen [Acetaminophen Extra Strength]) 500 mg PO BID MICHAEL Non-Formulary Medication (Albuterol/Ipratropium [Duoneb 3.0-0.5 Mg/3 Ml]) 3 ml NEB Q4H PRN PRN Reason: Wheezing Non-Formulary Medication (Apixaban [Eliquis]) 2.5 mg PO BID MICHAEL Non-Formulary Medication (Atorvastatin [Lipitor]) 80 mg PO BEDTIME MICHAEL Non-Formulary Medication (Cholecalciferol (Vitamin D3) [Vitamin D3]) 2,000 unit PO DAILY MICHAEL Non-Formulary Medication (Cholestyramine/Sucrose [Cholestyramine]) 4 gm PO DAILY MICHAEL Non-Formulary Medication (Levothyroxine Sodium [Synthroid]) 25 mcg PO DAILY MICHAEL Non-Formulary Medication (Lisinopril [Prinivil]) 5 mg PO BID MICHAEL Non-Formulary Medication (Mag Hydrox/Aluminum Hyd/Simeth [Mylanta Maximum Strength Liq]) 20 mg PO DAILY PRN PRN Reason: Pain Non-Formulary Medication (Melatonin [Melatonin]) 3 mg PO DAILY MICHAEL Non-Formulary Medication (Metoprolol Succinate [Toprol Xl]) 25 mg PO BID MICHAEL Non-Formulary Medication (Omeprazole [Omeprazole]) 20 mg PO BID MICHAEL Non-Formulary Medication (Torsemide [Torsemide]) 5 mg PO DAILY MICHAEL Non-Formulary Medication (Trazodone Hcl [Trazodone Hcl]) 50 mg PO BEDTIME MICHAEL Ondansetron HCl (Zofran) 4 mg IVPUSH Q4H PRN PRN Reason: Nausea/Vomiting Labs: Laboratory Tests 08/17/19 08/17/19 08/17/19 Range/Units 14:23 14:30 14:30 WBC 9.1 (4.0-11.0) K/uL RBC 4.23 (3.80-5.80) M/uL Hgb 13.7 (11.5-16.5) g/dL Hct 40.7 (37.0-47.0) % MCV 96 (76-96) fL MCH 32.4 H (27.0-32.0) pg MCHC 33.7 (31.0-35.0) g/dL RDW 18.1 H (11.0-16.0) % Plt Count 258 (150-500) K/uL MPV 11.3 H (6.0-10.0) fL Neut % (Auto) 61.9 (45.0-70.0) % Lymph % (Auto) 26.6 (20.0-40.0) % [place] % (Auto) 11.0 H (3.0-10.0) % Eos % (Auto) 0.3 L (1.0-5.0) % Baso % (Auto) 0.2 (0.0-0.5) % Neut # (Auto) 5.60 (2.00-7.50) K/uL Lymph # (Auto) 2.41 (1.50-4.00) K/uL [place] # (Auto) 1.00 H (0.20-0.80) K/uL Eos # (Auto) 0.03 L (0.04-0.40) K/uL Baso # (Auto) 0.02 (0.02-0.10) K/uL Sodium 144 (136-145) mmol/L Potassium 3.1 L (3.5-5.1) mmol/L Chloride 104 (98-107) mmol/L Carbon Dioxide 26.3 (21.0-32.0) mmol/L Anion Gap 16.8 H (5.0-15.0) mmol/L BUN 20 D (8-26) mg/dL Creatinine 1.57 H D (0.55-1.02) mg/dL Est Cr Clr Drug Dosing 24.50 mL/min Estimated GFR (MDRD) 31 L (>60) MLS/MIN BUN/Creatinine Ratio 12.7 (6-25) Glucose 166 H (74-100) mg/dL Calcium 8.6 (8.5-10.1) mg/dL Urine Color Yellow Urine Appearance Slightly cloudy (CLEAR) Urine pH 5.5 (5.0-8.0) Ur Specific [place] 1.020 (1.003-1.030) Urine Protein 30 H (NEGATIVE) mg/dL Urine Glucose (UA) Negative (NEGATIVE) mg/dL Urine Ketones Negative (NEGATIVE) mg/dL Urine Occult Blood Negative (NEGATIVE) Urine Nitrite Positive H (NEGATIVE) Urine Bilirubin Negative (NEGATIVE) Urine Urobilinogen 0.2 (0.2-1.0) E.U./dL Ur Leukocyte Esterase Negative (NEGATIVE) U Hyaline Cast (Auto) Moderate /HPF Urine RBC Not seen /HPF Urine WBC 0-5 H /HPF Ur Squamous Epith Cells Few /HPF Urine Bacteria Many H /HPF Meds: Medications Generic Name Dose Route Start Last Admin Trade Name Freq PRN Reason Stop Dose Admin Potassium Chloride/Dextrose/Sod Cl 1,000 mls @ 100 mls/hr 08/17/19 15:15 D5 1/2 Ns W/ 20 Meq/L Kcl IV ASDIRECTED MICHAEL Ceftriaxone Sodium 1 gm/ 50 mls @ 200 mls/hr 08/17/19 16:00 08/17/19 15:33 Sodium Chloride IV 08/17/19 16:14 200 mls/hr ONETIME ONE Administration Ceftriaxone Sodium 1 gm/ 50 mls @ 200 mls/hr 08/18/19 16:00 Sodium Chloride IV Q24H MICHAEL Lorazepam 1 mg 08/17/19 15:35 Ativan IVPUSH BEDTIME PRN Sleep Non-Formulary Medication 500 mg 08/17/19 20:00 Acetaminophen [Acetaminophen Extra Strength] PO BID MICHAEL Non-Formulary Medication 3 ml 08/17/19 15:34 Albuterol/Ipratropium [Duoneb 3.0-0.5 Mg/3 Ml] NEB Q4H PRN Wheezing Non-Formulary Medication 2.5 mg 08/17/19 20:00 Apixaban [Eliquis] PO BID MICHAEL Non-Formulary Medication 80 mg 08/17/19 20:00 Atorvastatin [Lipitor] PO BEDTIME MICHAEL Non-Formulary Medication 2,000 unit 08/18/19 08:00 Cholecalciferol (Vitamin D3) [Vitamin D3] PO DAILY MICHAEL Non-Formulary Medication 4 gm 08/18/19 08:00 Cholestyramine/Sucrose [Cholestyramine] PO DAILY MICHAEL Non-Formulary Medication 25 mcg 08/18/19 08:00 Levothyroxine Sodium [Synthroid] PO DAILY MICHAEL Non-Formulary Medication 5 mg 05/22/20 20:00 Lisinopril [Prinivil] PO BID MICHAEL Non-Formulary Medication 20 mg 08/17/19 15:34 Mag Hydrox/Aluminum Hyd/Simeth [Mylanta Maximum Strength Liq] PO DAILY PRN Pain Non-Formulary Medication 3 mg 08/18/19 08:00 Melatonin [Melatonin] PO DAILY MICHAEL Non-Formulary Medication 25 mg 08/17/19 20:00 Metoprolol Succinate [Toprol Xl] PO BID MICHAEL Non-Formulary Medication 20 mg 08/17/19 20:00 Omeprazole [Omeprazole] PO BID MICHAEL Non-Formulary Medication 5 mg 08/18/19 08:00 Torsemide [Torsemide] PO DAILY MICHAEL Non-Formulary Medication 50 mg 08/17/19 20:00 Trazodone Hcl [Trazodone Hcl] PO BEDTIME MICHAEL Ondansetron HCl 4 mg 08/17/19 15:35 Zofran IVPUSH Q4H PRN Nausea/Vomiting Discontinued Medications Generic Name Dose Route Start Last Admin Trade Name Freq PRN Reason Stop Dose Admin Ceftriaxone Sodium Confirm 08/17/19 15:39 Rocephin Administered 08/17/19 15:40 Dose 1 gm .ROUTE .STK-MED ONE Ceftriaxone Sodium 1 gm/ 50 mls @ 100 mls/hr 08/17/19 16:00 Sodium Chloride IV Q24H [facility] Departure - Departure Time of Disposition: 15:45 Disposition: Refer to Observation Condition: Fair Clinical Impression: Hypokalemia, UTI (urinary tract infection) Sepsis Event Note - Evaluation Sepsis Screening Result: No Definite Risk - Focused Exam Vital Signs: Vital Signs Temp Pulse Resp BP Pulse Ox 08/17/19 14:05 36.3 C 126 H 24 H 124/72 94 L Date Exam was Performed: 08/17/19 Time Exam was Performed: 16:01 - My Orders Last 24 Hours: My Active Orders 08/17/19 14:24 EKG Documentation Completion [RC] ASDIRECTED Abdomen 1V Flat [CR] Stat - Assessment/Plan Last 24 Hours: My Active Orders 08/17/19 14:24 EKG Documentation Completion [RC] ASDIRECTED Abdomen 1V Flat [CR] Stat
[2019-08-17] MEDS ORDERED: LORazepam 2 MG/ML SDV IVPUSH PRN (15:35)
[2019-08-17] MEDS ORDERED: Ondansetron 4 MG/2 ML SDV IVPUSH PRN (15:35)
[2019-08-17] MEDS ORDERED: cefTRIAXone 1 GM Vial ONE (15:39)
[2019-08-17] MEDS ORDERED: cefTRIAXone 1 GM in Sodium Chloride 0.9% 50 ML IV SCH (16:00)
[2019-08-17] MEDS ORDERED: cefTRIAXone 1 GM in Sodium Chloride 0.9% 50 ML IV ONE (16:00)
[2019-08-17] MEDS: D5 1/2 NS w/ 20 mEq/L KCl 1,000 ML IV SCH (16:24)
[2019-08-17] MEDS ORDERED: Sodium Chloride 0.9% 1,000 ML IV ONE (19:04)
[2019-08-17] MEDS: LISINOPRIL 10 MG PO SCH (19:45)
[2019-08-17] MEDS ORDERED: LISINOPRIL 5 MG PO SCH (20:00)
[2019-08-17] MEDS: OMEPRAZOLE 20 MG PO SCH (20:00)
[2019-08-18] MEDS ORDERED: Albuterol/Ipratropium 3.0-0.5 MG/3 ML Neb Soln INH PRN (07:37)
[2019-08-18] MEDS ORDERED: Aluminum Hydroxide/Magnesium Hydroxide/Simethicone Susp 30 ML Cup PO PRN (07:46)
[2019-08-18] MEDS: OMEPRAZOLE 20 MG PO SCH ×2 (08:45→20:33)
[2019-08-18] MEDS: TORSEMIDE 5 MG PO SCH (08:46)
[2019-08-18] MEDS: LISINOPRIL 10 MG PO SCH (08:48)
[2019-08-18] MEDS: Cholestyramine/Sucrose Powder 378 GM Jar PO SCH (08:58)
--- NOTE | 2019-08-18 11:38 | PCM.PN ---
- General Info Date of Service: 08/18/19 Admission Dx/Problem (Free Text): Improved this morning, drinking fluids. More responsive to questions. Functional Status: Reports: Pain Controlled - Review of Systems General: Reports: Weakness. Denies: Fever HEENT: Reports: No Symptoms Pulmonary: Reports: No Symptoms Cardiovascular: Reports: No Symptoms Gastrointestinal: Reports: No Symptoms Musculoskeletal: Reports: No Symptoms Skin: Reports: No Symptoms Neurological: Reports: No Symptoms - Patient Data Vitals - Most Recent: Last Vital Signs Temp 36.6 C 08/18/19 08:00 Pulse 126 H 08/18/19 08:00 Resp 18 08/18/19 08:00 BP 107/75 08/18/19 08:48 Pulse Ox 99 08/18/19 08:00 Weight - Most Recent: 69.672 kg Lab Results Last 24 Hours: Laboratory Results - last 24 hr 08/17/19 08/17/19 08/17/19 Range/Units 14:23 14:30 14:30 WBC 9.1 (4.0-11.0) K/uL RBC 4.23 (3.80-5.80) M/uL Hgb 13.7 (11.5-16.5) g/dL Hct 40.7 (37.0-47.0) % MCV 96 (76-96) fL MCH 32.4 H (27.0-32.0) pg MCHC 33.7 (31.0-35.0) g/dL RDW 18.1 H (11.0-16.0) % Plt Count 258 (150-500) K/uL MPV 11.3 H (6.0-10.0) fL Neut % (Auto) 61.9 (45.0-70.0) % Lymph % (Auto) 26.6 (20.0-40.0) % Lamb % (Auto) 11.0 H (3.0-10.0) % Eos % (Auto) 0.3 L (1.0-5.0) % Baso % (Auto) 0.2 (0.0-0.5) % Neut # (Auto) 5.60 (2.00-7.50) K/uL Lymph # (Auto) 2.41 (1.50-4.00) K/uL Lamb # (Auto) 1.00 H (0.20-0.80) K/uL Eos # (Auto) 0.03 L (0.04-0.40) K/uL Baso # (Auto) 0.02 (0.02-0.10) K/uL Sodium 144 (136-145) mmol/L Potassium 3.1 L (3.5-5.1) mmol/L Chloride 104 (98-107) mmol/L Carbon Dioxide 26.3 (21.0-32.0) mmol/L Anion Gap 16.8 H (5.0-15.0) mmol/L BUN 20 D (8-26) mg/dL Creatinine 1.57 H D (0.55-1.02) mg/dL Est Cr Clr Drug Dosing 24.50 mL/min Estimated GFR (MDRD) 31 L (>60) MLS/MIN BUN/Creatinine Ratio 12.7 (6-25) Glucose 166 H (74-100) mg/dL Calcium 8.6 (8.5-10.1) mg/dL Urine Color Yellow Urine Appearance Slightly cloudy (CLEAR) Urine pH 5.5 (5.0-8.0) Ur Specific [place] 1.020 (1.003-1.030) Urine Protein 30 H (NEGATIVE) mg/dL Urine Glucose (UA) Negative (NEGATIVE) mg/dL Urine Ketones Negative (NEGATIVE) mg/dL Urine Occult Blood Negative (NEGATIVE) Urine Nitrite Positive H (NEGATIVE) Urine Bilirubin Negative (NEGATIVE) Urine Urobilinogen 0.2 (0.2-1.0) E.U./dL Ur Leukocyte Esterase Negative (NEGATIVE) U Hyaline Cast (Auto) Moderate /HPF Urine RBC Not seen /HPF Urine WBC 0-5 H /HPF Ur Squamous Epith Cells Few /HPF Urine Bacteria Many H /HPF Med Orders - Current: Current Medications Al Hydroxide/Mg Hydroxide (Mag-Al Plus) 30 ml PO DAILY PRN PRN Reason: Heartburn Albuterol/Ipratropium (Duoneb 3.0-0.5 Mg/3 Ml) 3 ml INH Q4H PRN PRN Reason: Wheezing Cholestyramine Resin (Cholestyramine Powder) 4 gm PO DAILY [facility] Last Admin: 08/18/19 08:58 Dose: Not Given Potassium Chloride/Dextrose/Sod Cl (D5 1/2 Ns W/ 20 Meq/L Kcl) 1,000 mls @ 100 mls/hr IV ASDIRECTED [facility] Last Admin: 08/17/19 16:24 Dose: 100 mls/hr Ceftriaxone Sodium 1 gm/ (Sodium Chloride) 50 mls @ 200 mls/hr IV Q24H [facility] Lisinopril (Prinivil) 10 mg PO DAILY [facility] Last Admin: 08/18/19 08:48 Dose: 10 mg Lorazepam (Ativan) 1 mg IVPUSH BEDTIME PRN PRN Reason: Sleep Melatonin (Melatonin) 3 mg PO BEDTIME [facility] (Acetaminophen [ Acetaminophen Extra Strength] 500 Mg) Own Med 500 mg PO BID [facility] Last Admin: 08/18/19 08:44 Dose: 500 mg (Apixaban [Eliquis] (2.5 Mg)Own Med) 2.5 mg PO BID [facility] Last Admin: 08/18/19 08:44 Dose: 2.5 mg (Atorvastatin [ Lipitor] 80 Mg) Own Med 80 mg PO BEDTIME [facility] Last Admin: 08/17/19 20:00 Dose: 80 mg (Cholecalciferol ( Vitamin D3) [Vitamin D3] 2,000 Unit) Own Med 2,000 unit PO DAILY [facility] Last Admin: 08/18/19 08:45 Dose: 2,000 unit (Levothyroxine Sodium [Synthroid] 25 Mcg)Own Meds * 25 mcg PO DAILY [facility] Last Admin: 08/18/19 08:45 Dose: 25 mcg (Metoprolol Succinate [Toprol Xl ] 25 Mg)Own Med * 25 mg PO BID [facility] Last Admin: 08/18/19 08:45 Dose: 25 mg (Omeprazole [ Omeprazole] 20 Mg) *Own Med 20 mg PO BID [facility] Last Admin: 08/18/19 08:45 Dose: 20 mg (Torsemide [ Torsemide] 5 Mg) Own Med 5 mg PO DAILY [facility] Last Admin: 08/18/19 08:46 Dose: 5 mg (Trazodone Hcl [ Trazodone Hcl] 50 Mg )Own Med 50 mg PO BEDTIME [facility] Last Admin: 08/17/19 20:10 Dose: 50 mg Ondansetron HCl (Zofran) 4 mg IVPUSH Q4H PRN PRN Reason: Nausea/Vomiting Discontinued Medications Ceftriaxone Sodium (Rocephin) Confirm Administered Dose 1 gm .ROUTE .STK-MED ONE Stop: 08/17/19 15:40 Last Admin: 08/17/19 16:25 Dose: Not Given Ceftriaxone Sodium 1 gm/ (Sodium Chloride) 50 mls @ 200 mls/hr IV ONETIME ONE Stop: 08/17/19 16:14 Last Admin: 08/17/19 15:33 Dose: 200 mls/hr Ceftriaxone Sodium 1 gm/ (Sodium Chloride) 50 mls @ 100 mls/hr IV Q24H [facility] Sodium Chloride (Normal Saline) 1,000 mls @ 500 mls/hr IV .BOLUS ONE Stop: 08/17/19 21:03 Last Admin: 08/17/19 21:23 Dose: 500 mls/hr Non-Formulary Medication (Lisinopril [Prinivil]) 5 mg PO BID [facility] - Exam Quality Assessment: No: Supplemental Oxygen General: Alert, Cooperative, No Acute Distress HEENT: Pupils Equal, Pupils Reactive, EOMI, Mucous Membr. Moist/[place] Neck: Supple Lungs: Clear to Auscultation, Normal Respiratory Effort Cardiovascular: Regular Rhythm Extremities: Normal Capillary Refill Skin: Warm, Dry, Intact Neurological: No New Focal Deficit Psy/Mental Status: Alert Sepsis Event Note - Evaluation Sepsis Screening Result: No Definite Risk - Focused Exam Vital Signs: Vital Signs Temp Pulse Resp BP BP Pulse Ox 08/18/19 08:48 107/75 08/18/19 08:00 36.6 C 126 H 18 107/75 99 08/18/19 04:00 129 H 19 130/87 94 L 08/18/19 00:00 20 138/99 H 95 Date Exam was Performed: 08/18/19 Time Exam was Performed: 11:35 - Problem List Review Problem List Initiated/Reviewed/Updated: Yes - My Orders Last 24 Hours: My Active Orders 08/17/19 14:24 EKG Documentation Completion [RC] ASDIRECTED Abdomen 1V Flat [CR] Stat 08/17/19 15:03 Patient Status [ADT] Routine Oxygen Therapy [RC] PRN Vital Signs [RC] 08,12,16,20,00,04 Resuscitation Status Routine 08/17/19 15:15 D5 1/2 NS w/ 20 mEq/L KCl 1,000 ml IV ASDIRECTED 08/17/19 15:33 Oxygen Therapy [RC] PRN VTE/DVT Education [RC] Per Unit Routine 08/17/19 15:35 LORazepam [Ativan] 1 mg IVPUSH BEDTIME PRN Ondansetron [Zofran] 4 mg IVPUSH Q4H PRN 08/17/19 19:15 lisinopriL [Prinivil] 10 mg PO DAILY 08/17/19 20:00 Acetaminophen [Acetaminophen Extra Strength] 500 mg PO BID Apixaban [Eliquis] 2.5 mg PO BID Metoprolol Succinate [Toprol XL] 25 mg PO BID Omeprazole [Omeprazole] 20 mg PO BID atorvaSTATin [Lipitor] 80 mg PO BEDTIME traZODone HCl [Trazodone HCl] 50 mg PO BEDTIME 08/17/19 Dinner Regular Diet [DIET] Soft Diet [DIET] 08/18/19 07:37 Albuterol/Ipratropium [DuoNeb 3.0-0.5 MG/3 ML] 3 ml INH Q4H PRN 08/18/19 07:46 Alum Hydrox/Mag Hydrox/Simeth [Mag-Al Plus] 30 ml PO DAILY PRN 08/18/19 08:00 Cholecalciferol (Vitamin D3) [Vitamin D3] 2,000 unit PO DAILY Cholestyramine/Sucrose [Cholestyramine Powder] 4 gm PO DAILY Levothyroxine Sodium [Synthroid] 25 mcg PO DAILY Torsemide [Torsemide] 5 mg PO DAILY 08/18/19 16:00 cefTRIAXone [Rocephin] 1 gm Sodium Chloride 0.9% [Normal Saline] 50 ml IV Q24H 08/18/19 20:00 Melatonin 3 mg PO BEDTIME - Assessment Assessment:: Hypokalemia UTI Plan Continue IVF, recheck electrolytes on 08/19/2019. Continue IV antibiotics Return to Care Center on 08/18/2019
[2019-08-18] MEDS: D5 1/2 NS w/ 20 mEq/L KCl 1,000 ML IV SCH (12:00)
[2019-08-18] MEDS: cefTRIAXone 1 GM in Sodium Chloride 0.9% 50 ML IV SCH (16:34)
[2019-08-18] MEDS: Melatonin 3 MG Tab PO SCH (21:23)
[2019-08-19] MEDS ORDERED: Menthol/Zinc Oxide Ointment 113 GM Tube TOP ONE (04:04)
--- NOTE | 2019-08-19 08:35 | CR ---
DATE OF SERVICE: 08/17/19 CLINICAL DATA: pain SUPINE ABDOMEN: No priors. No dilated loops of bowel. There is increased density in the left lung base consistent with basilar atelectasis or infiltrate. Pneumonia should be considered. 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 [id number] [facility]
[2019-08-19] MEDS: Potassium Chloride 20 MEQ Tab.ER PO SCH ×2 (08:55→21:20)
[2019-08-19] MEDS: TORSEMIDE 5 MG PO SCH (08:57)
[2019-08-19] MEDS: OMEPRAZOLE 20 MG PO SCH ×2 (08:57→21:15)
[2019-08-19] MEDS: LISINOPRIL 10 MG PO SCH (08:57)
--- NOTE | 2019-08-19 11:56 | PCM.PN ---
- General Info Date of Service: 08/19/19 Admission Dx/Problem (Free Text): Improved this morning, drinking fluids. More responsive to questions. Functional Status: Reports: Pain Controlled - Review of Systems General: Reports: Fatigue. Denies: Fever HEENT: Reports: No Symptoms Pulmonary: Reports: Shortness of Breath. Denies: Cough, Wheezing Cardiovascular: Denies: Chest Pain Gastrointestinal: Reports: No Symptoms Musculoskeletal: Reports: No Symptoms Skin: Reports: No Symptoms Neurological: Reports: No Symptoms Psychiatric: Reports: No Symptoms - Patient Data Vitals - Most Recent: Last Vital Signs Temp 36.8 C 08/18/19 20:00 Pulse 75 08/18/19 20:00 Resp 22 H 08/18/19 20:00 BP 105/82 08/19/19 08:57 Pulse Ox 98 08/18/19 20:00 Weight - Most Recent: 69.672 kg I&O - Last 24 Hours: Intake & Output 08/18/19 08/19/19 08/19/19 22:59 06:59 14:59 Intake Total 1250 200 Balance 1250 200 Lab Results Last 24 Hours: Laboratory Results - last 24 hr 08/19/19 Range/Units 03:45 Sodium 142 (136-145) mmol/L Potassium 3.2 L (3.5-5.1) mmol/L Chloride 105 (98-107) mmol/L Carbon Dioxide 25.3 (21.0-32.0) mmol/L Anion Gap 14.9 (5.0-15.0) mmol/L BUN 16 (8-26) mg/dL Creatinine 1.27 H (0.55-1.02) mg/dL Est Cr Clr Drug Dosing 30.29 mL/min Estimated GFR (MDRD) 40 L (>60) MLS/MIN BUN/Creatinine Ratio 12.6 (6-25) Glucose 114 H D (74-100) mg/dL Calcium 8.0 L (8.5-10.1) mg/dL Med Orders - Current: Current Medications Al Hydroxide/Mg Hydroxide (Mag-Al Plus) 30 ml PO DAILY PRN PRN Reason: Heartburn Albuterol/Ipratropium (Duoneb 3.0-0.5 Mg/3 Ml) 3 ml INH Q4H PRN PRN Reason: Wheezing Cholestyramine Resin (Cholestyramine Powder) 4 gm PO DAILY [facility] Last Admin: 08/18/19 08:58 Dose: Not Given Potassium Chloride/Dextrose/Sod Cl (D5 1/2 Ns W/ 20 Meq/L Kcl) 1,000 mls @ 100 mls/hr IV ASDIRECTED [facility] Last Admin: 08/18/19 12:00 Dose: 100 mls/hr Ceftriaxone Sodium 1 gm/ (Sodium Chloride) 50 mls @ 200 mls/hr IV Q24H [facility] Last Admin: 08/18/19 16:34 Dose: 200 mls/hr Lisinopril (Prinivil) 10 mg PO DAILY [facility] Last Admin: 08/19/19 08:57 Dose: 10 mg Lorazepam (Ativan) 1 mg IVPUSH BEDTIME PRN PRN Reason: Sleep Melatonin (Melatonin) 3 mg PO BEDTIME [facility] Last Admin: 08/18/19 21:23 Dose: Not Given (Acetaminophen [ Acetaminophen Extra Strength] 500 Mg) Own Med 500 mg PO BID [facility] Last Admin: 08/19/19 08:55 Dose: 500 mg (Apixaban [Eliquis] (2.5 Mg)Own Med) 2.5 mg PO BID [facility] Last Admin: 08/19/19 08:56 Dose: 2.5 mg (Atorvastatin [ Lipitor] 80 Mg) Own Med 80 mg PO BEDTIME [facility] Last Admin: 08/18/19 20:32 Dose: 80 mg (Cholecalciferol ( Vitamin D3) [Vitamin D3] 2,000 Unit) Own Med 2,000 unit PO DAILY [facility] Last Admin: 08/19/19 08:56 Dose: 2,000 unit (Levothyroxine Sodium [Synthroid] 25 Mcg)Own Meds * 25 mcg PO DAILY [facility] Last Admin: 08/19/19 08:56 Dose: 25 mcg (Metoprolol Succinate [Toprol Xl ] 25 Mg)Own Med * 25 mg PO BID [facility] Last Admin: 08/19/19 08:57 Dose: 25 mg (Omeprazole [ Omeprazole] 20 Mg) *Own Med 20 mg PO BID [facility] Last Admin: 08/19/19 08:57 Dose: 20 mg (Torsemide [ Torsemide] 5 Mg) Own Med 5 mg PO DAILY [facility] Last Admin: 08/19/19 08:57 Dose: 5 mg (Trazodone Hcl [ Trazodone Hcl] 50 Mg )Own Med 50 mg PO BEDTIME [facility] Last Admin: 08/18/19 20:33 Dose: 50 mg Ondansetron HCl (Zofran) 4 mg IVPUSH Q4H PRN PRN Reason: Nausea/Vomiting Potassium Chloride (Klor-Con M20) 40 meq PO BID [facility] Last Admin: 08/19/19 08:55 Dose: 40 meq Discontinued Medications Calamine/Phenol (Calmoseptine) Confirm Administered Dose 113 gm TOP .STK-MED ONE Stop: 08/19/19 04:05 Ceftriaxone Sodium (Rocephin) Confirm Administered Dose 1 gm .ROUTE .STK-MED ONE Stop: 08/17/19 15:40 Last Admin: 08/17/19 16:25 Dose: Not Given Ceftriaxone Sodium 1 gm/ (Sodium Chloride) 50 mls @ 200 mls/hr IV ONETIME ONE Stop: 08/17/19 16:14 Last Admin: 08/17/19 15:33 Dose: 200 mls/hr Ceftriaxone Sodium 1 gm/ (Sodium Chloride) 50 mls @ 100 mls/hr IV Q24H [facility] Sodium Chloride (Normal Saline) 1,000 mls @ 500 mls/hr IV .BOLUS ONE Stop: 08/17/19 21:03 Last Admin: 08/17/19 21:23 Dose: 500 mls/hr Non-Formulary Medication (Lisinopril [Prinivil]) 5 mg PO BID [facility] - Exam Quality Assessment: Supplemental Oxygen General: Alert, Mild Distress HEENT: Pupils Equal, Pupils Reactive, Mucous Membr. Moist/[place] Neck: Supple Lungs: Decreased Breath Sounds, Rales, Other (Tachypneic, fine rales in bilateral bases; decreased air entry bilateral bases) Cardiovascular: Regular Rhythm, Tachycardia GI/Abdominal Exam: Soft, Non-Tender, No Distention Extremities: Normal Inspection, Other (1+ pitting edema bilateral ankles; mild edema right hand & wrist) Skin: Warm, Dry, Intact Neurological: No New Focal Deficit Psy/Mental Status: Alert Sepsis Event Note - Evaluation Sepsis Screening Result: No Definite Risk - Focused Exam Vital Signs: Vital Signs BP 08/19/19 08:57 105/82 Date Exam was Performed: 08/19/19 Time Exam was Performed: 11:48 - Problem List & Annotations (1) Pneumonia SNOMED Code(s): 162633170 Code(s): J18.9 - PNEUMONIA, UNSPECIFIED ORGANISM Status: Acute Priority: High Current Visit: Yes - Problem List Review Problem List Initiated/Reviewed/Updated: Yes - My Orders Last 24 Hours: My Active Orders 08/18/19 16:00 cefTRIAXone [Rocephin] 1 gm Sodium Chloride 0.9% [Normal Saline] 50 ml IV Q24H 08/18/19 20:00 Melatonin 3 mg PO BEDTIME 08/19/19 08:00 Potassium Chloride [Klor-Con M20] 40 meq PO BID 08/19/19 09:26 Chest 1V Frontal [CR] Routine 08/19/19 11:07 CORONAVIRUS COVID-19, JESSE Stat 08/19/19 11:47 Admission Status [Patient Status] [ADT] Routine - Assessment Assessment:: 08/18/2019 Assessment Hypokalemia UTI Plan Continue IVF, recheck electrolytes on 08/19/2019. Continue IV antibiotics Return to Care Center on 08/18/2019 08/19/2019 Assessment Pneumonia Hypokalemia UTI Plan 1) Pneumonia CXR obtained because of mild hypoxia, tachypnea, and fine rales. Acute changes noted consistent with pneumonia. Phone conversation with daughter (Jasmyn) to discuss plan of care and whether or not to start IV antibiotics. She will discuss with family and contact me with their decision. 2) Hypokalemia K=3.2 this morning; given 40 Jimmy KCl orally today. Will recheck on 08/20/2019. 3) UTI Continues to get IV antibiotic as previously ordered. Will reevaluate medications after daughter notifies me of plan for treating pneumonia.
[2019-08-19] MEDS: Cholestyramine/Sucrose Powder 378 GM Jar PO SCH (14:06)
[2019-08-19] MEDS: diazePAM 5 MG/ML MDV IV PRN (15:03)
[2019-08-19] MEDS: cefTRIAXone 1 GM in Sodium Chloride 0.9% 50 ML IV SCH (15:05)
[2019-08-19] MEDS: D5 1/2 NS w/ 20 mEq/L KCl 1,000 ML IV SCH (15:37)
[2019-08-19] MEDS ORDERED: Metoprolol Succinate 25 MG Tab.ER PO SCH (21:00)
[2019-08-19] MEDS ORDERED: Metoprolol Succinate 25 MG Tab.ER ONE (21:08)
[2019-08-19] MEDS ORDERED: traZODone 50 MG Tab ONE (21:08)
[2019-08-19] MEDS ORDERED: Omeprazole 20 MG Cap.CR ONE (21:08)
[2019-08-19] MEDS ORDERED: Apixaban 2.5 MG Tab ONE (21:08)
[2019-08-19] MEDS: atorvaSTATin 80 MG Tab PO SCH (21:19)
[2019-08-19] MEDS: Melatonin 3 MG Tab PO SCH (21:19)
[2019-08-19] MEDS: Acetaminophen 500 MG Tab PO SCH (21:19)
[2019-08-19] MEDS: traZODone 50 MG Tab PO SCH (21:28)
[2019-08-19] MEDS: Apixaban 2.5 MG Tab PO SCH (21:36)
[2019-08-19] MEDS: Metoprolol Succinate 25 MG Tab.ER PO SCH (21:37)
[2019-08-19] MEDS: Omeprazole 20 MG Cap.CR PO SCH (22:27)
[2019-08-20] MEDS: D5 1/2 NS w/ 20 mEq/L KCl 1,000 ML IV SCH ×2 (02:26→18:35)
[2019-08-20] MEDS ORDERED: LASIX 20 MG PO SCH (08:00)
[2019-08-20] MEDS: Torsemide 20 MG Tab PO SCH (08:35)
[2019-08-20] MEDS: Apixaban 2.5 MG Tab PO SCH ×3 (08:37→20:00)
[2019-08-20] MEDS: Potassium Chloride 20 MEQ Tab.ER PO SCH ×3 (08:41→20:00)
[2019-08-20] MEDS: Omeprazole 20 MG Cap.CR PO SCH ×3 (08:42→20:00)
[2019-08-20] MEDS: Acetaminophen 500 MG Tab PO SCH ×3 (08:44→20:00)
[2019-08-20] MEDS: Cholecalciferol (Vitamin D3) 2,000 Unit Cap PO SCH (08:44)
[2019-08-20] MEDS: Furosemide 40 MG Tab PO SCH (08:44)
[2019-08-20] MEDS: Metoprolol Succinate 25 MG Tab.ER PO SCH ×2 (08:45→21:40)
[2019-08-20] MEDS: Lisinopril 10 MG Tab PO SCH (08:46)
[2019-08-20] MEDS: Cholestyramine/Sucrose Powder 378 GM Jar PO SCH (08:47)
[2019-08-20] MEDS: Levothyroxine 25 MCG Tab PO SCH (08:49)
--- NOTE | 2019-08-20 13:44 | PCM.PN ---
- General Info Date of Service: 08/20/19 Admission Dx/Problem (Free Text): Pneumonia Hypokalemia UTI Subjective Update: Color pale, tachypneic at times. Refusing to take solids or drink fluids. Indicates "no" when asked about pain. Functional Status: Reports: Pain Controlled - Review of Systems General: Reports: Weakness. Denies: Fever, Appetite HEENT: Reports: No Symptoms Pulmonary: Reports: Shortness of Breath, Cough Cardiovascular: Denies: Chest Pain Gastrointestinal: Reports: Decreased Appetite. Denies: Abdominal Pain, Diarrhea , Nausea, Vomiting Musculoskeletal: Reports: No Symptoms Skin: Reports: No Symptoms Neurological: Reports: No Symptoms Psychiatric: Reports: No Symptoms - Patient Data Vitals - Most Recent: Last Vital Signs Temp 35.6 C L 08/20/19 11:48 Pulse 80 08/20/19 11:48 Resp 22 H 08/20/19 11:48 BP 114/66 08/20/19 11:48 Pulse Ox 96 08/20/19 11:48 Weight - Most Recent: 69.672 kg I&O - Last 24 Hours: Intake & Output 08/19/19 08/20/19 08/20/19 22:59 06:59 14:59 Intake Total 375 1029 Balance 375 1029 Lab Results Last 24 Hours: Laboratory Results - last 24 hr 08/20/19 08/20/19 Range/Units 08:00 08:00 WBC 8.8 (4.0-11.0) K/uL RBC 3.55 L (3.80-5.80) M/uL Hgb 11.5 (11.5-16.5) g/dL Hct 34.5 L (37.0-47.0) % MCV 97 H (76-96) fL MCH 32.4 H (27.0-32.0) pg MCHC 33.3 (31.0-35.0) g/dL RDW 18.3 H (11.0-16.0) % Plt Count 202 D (150-500) K/uL MPV 11.3 H (6.0-10.0) fL Neut % (Auto) 57.2 (45.0-70.0) % Lymph % (Auto) 26.8 (20.0-40.0) % [place] % (Auto) 15.2 H (3.0-10.0) % Eos % (Auto) 0.7 L (1.0-5.0) % Baso % (Auto) 0.1 (0.0-0.5) % Neut # (Auto) 5.05 (2.00-7.50) K/uL Lymph # (Auto) 2.36 (1.50-4.00) K/uL [place] # (Auto) 1.34 H (0.20-0.80) K/uL Eos # (Auto) 0.06 (0.04-0.40) K/uL Baso # (Auto) 0.01 L (0.02-0.10) K/uL Sodium 143 (136-145) mmol/L Potassium 3.8 (3.5-5.1) mmol/L Chloride 108 H (98-107) mmol/L Carbon Dioxide 23.3 (21.0-32.0) mmol/L Anion Gap 15.5 H (5.0-15.0) mmol/L BUN 19 (8-26) mg/dL Creatinine 1.29 H (0.55-1.02) mg/dL Est Cr Clr Drug Dosing 29.82 mL/min Estimated GFR (MDRD) 39 L (>60) MLS/MIN BUN/Creatinine Ratio 14.7 (6-25) Glucose 147 H (74-100) mg/dL Calcium 8.0 L (8.5-10.1) mg/dL Med Orders - Current: Current Medications Acetaminophen (Tylenol Extra Strength) 500 mg PO BID [facility] Last Admin: 08/20/19 08:44 Dose: 500 mg Al Hydroxide/Mg Hydroxide (Mag-Al Plus) 30 ml PO DAILY PRN PRN Reason: Heartburn Albuterol/Ipratropium (Duoneb 3.0-0.5 Mg/3 Ml) 3 ml INH Q4H PRN PRN Reason: Wheezing Apixaban (Eliquis) 2.5 mg PO BID [facility] Last Admin: 08/20/19 08:37 Dose: 2.5 mg Atorvastatin Calcium (Lipitor) 80 mg PO BEDTIME [facility] Last Admin: 08/19/19 21:19 Dose: 80 mg Cholecalciferol (Vitamin D3) 2,000 unit PO DAILY [facility] Last Admin: 08/20/19 08:44 Dose: 2,000 unit Cholestyramine Resin (Cholestyramine Powder) 4 gm PO DAILY [facility] Last Admin: 08/20/19 08:47 Dose: 4 gm Diazepam (Valium) 5 mg IV BID PRN PRN Reason: Anxiety Last Admin: 08/19/19 15:03 Dose: 5 mg Diazepam (Valium) 5 mg IVPUSH Q4H PRN PRN Reason: Anxiety Furosemide (Lasix) 40 mg PO DAILY [facility] Last Admin: 08/20/19 08:44 Dose: 40 mg Ceftriaxone Sodium 1 gm/ (Sodium Chloride) 50 mls @ 200 mls/hr IV Q24H [facility] Last Admin: 08/19/19 15:05 Dose: 200 mls/hr Potassium Chloride/Dextrose/Sod Cl (D5 1/2 Ns W/ 20 Meq/L Kcl) 1,000 mls @ 75 mls/hr IV ASDIRECTED [facility] Last Admin: 08/20/19 02:26 Dose: 75 mls/hr Levothyroxine Sodium (Levothyroxine) 25 mcg PO DAILY [facility] Last Admin: 08/20/19 08:49 Dose: 25 mcg Lisinopril (Prinivil) 10 mg PO DAILY [facility] Last Admin: 08/20/19 08:46 Dose: 10 mg Lorazepam (Ativan) 1 mg IVPUSH BEDTIME PRN PRN Reason: Sleep Melatonin (Melatonin) 3 mg PO BEDTIME [facility] Last Admin: 08/19/19 21:19 Dose: 3 mg Metoprolol Succinate (Toprol Xl) 25 mg PO BID [facility] Last Admin: 08/20/19 08:45 Dose: 25 mg Morphine Sulfate (Morphine) 4 mg IV Q4H PRN PRN Reason: Pain Omeprazole (Omeprazole) 20 mg PO BID [facility] Last Admin: 08/20/19 08:42 Dose: 20 mg Ondansetron HCl (Zofran) 4 mg IVPUSH Q4H PRN PRN Reason: Nausea/Vomiting Potassium Chloride (Klor-Con M20) 40 meq PO BID [facility] Last Admin: 08/20/19 08:41 Dose: 40 meq Torsemide (Demadex) 5 mg PO DAILY [facility] Last Admin: 08/20/19 08:35 Dose: 5 mg Trazodone HCl (Trazodone) 50 mg PO BEDTIME [facility] Last Admin: 08/19/19 21:28 Dose: 50 mg Discontinued Medications Apixaban (Eliquis) Confirm Administered Dose 2.5 mg .ROUTE .STK-MED ONE Stop: 08/19/19 21:09 Last Admin: 08/19/19 21:38 Dose: Not Given Calamine/Phenol (Calmoseptine) Confirm Administered Dose 113 gm TOP .K-MED ONE Stop: 08/19/19 04:05 Last Admin: 08/19/19 13:38 Dose: Not Given Ceftriaxone Sodium (Rocephin) Confirm Administered Dose 1 gm .ROUTE .STK-MED ONE Stop: 08/17/19 15:40 Last Admin: 08/17/19 16:25 Dose: Not Given Potassium Chloride/Dextrose/Sod Cl (D5 1/2 Ns W/ 20 Meq/L Kcl) 1,000 mls @ 75 mls/hr IV ASDIRECTED [facility] Last Admin: 08/18/19 12:00 Dose: 100 mls/hr Ceftriaxone Sodium 1 gm/ (Sodium Chloride) 50 mls @ 200 mls/hr IV ONETIME ONE Stop: 08/17/19 16:14 Last Admin: 08/17/19 15:33 Dose: 200 mls/hr Ceftriaxone Sodium 1 gm/ (Sodium Chloride) 50 mls @ 100 mls/hr IV Q24H [facility] Sodium Chloride (Normal Saline) 1,000 mls @ 500 mls/hr IV .BOLUS ONE Stop: 08/17/19 21:03 Last Admin: 08/17/19 21:23 Dose: 500 mls/hr Lisinopril (Prinivil) 10 mg PO DAILY [facility] Last Admin: 08/19/19 08:57 Dose: 10 mg Metoprolol Succinate (Toprol Xl) 25 mg PO BID [facility] Last Admin: 08/19/19 21:21 Dose: 25 mg Metoprolol Succinate (Toprol Xl) Confirm Administered Dose 25 mg .ROUTE .STK- MED ONE Stop: 08/19/19 21:09 Last Admin: 08/19/19 21:38 Dose: Not Given (Acetaminophen [ Acetaminophen Extra Strength] 500 Mg) Own Med 500 mg PO BID [facility] Last Admin: 08/19/19 21:40 Dose: Not Given (Apixaban [Eliquis] (2.5 Mg)Own Med) 2.5 mg PO BID [facility] Last Admin: 08/19/19 21:40 Dose: Not Given (Atorvastatin [ Lipitor] 80 Mg) Own Med 80 mg PO BEDTIME [facility] Last Admin: 08/19/19 21:40 Dose: Not Given (Cholecalciferol ( Vitamin D3) [Vitamin D3] 2,000 Unit) Own Med 2,000 unit PO DAILY [facility] Last Admin: 08/19/19 08:56 Dose: 2,000 unit (Levothyroxine Sodium [Synthroid] 25 Mcg)Own Meds * 25 mcg PO DAILY [facility] Last Admin: 08/19/19 08:56 Dose: 25 mcg Non-Formulary Medication (Lisinopril [Prinivil]) 5 mg PO BID [facility] (Metoprolol Succinate [Toprol Xl ] 25 Mg)Own Med * 25 mg PO BID [facility] Last Admin: 08/19/19 21:39 Dose: Not Given (Omeprazole [ Omeprazole] 20 Mg) *Own Med 20 mg PO BID [facility] Last Admin: 08/19/19 21:15 Dose: 20 mg (Torsemide [ Torsemide] 5 Mg) Own Med 5 mg PO DAILY [facility] Last Admin: 08/19/19 08:57 Dose: 5 mg (Trazodone Hcl [ Trazodone Hcl] 50 Mg )Own Med 50 mg PO BEDTIME [facility] Last Admin: 08/19/19 21:39 Dose: Not Given Omeprazole (Omeprazole) Confirm Administered Dose 20 mg .ROUTE .STK-MED ONE Stop: 08/19/19 21:09 Last Admin: 08/19/19 21:38 Dose: Not Given Lasix 20 Mg Tabs *Pt (Own Med*) 0 each PO DAILY [facility] Trazodone HCl (Trazodone) Confirm Administered Dose 50 mg .ROUTE .STK-MED ONE Stop: 08/19/19 21:09 Last Admin: 08/19/19 21:39 Dose: Not Given - Exam Quality Assessment: Supplemental Oxygen (as needed) General: Alert HEENT: Pupils Equal, Pupils Reactive, Mucous Membr. Moist/[place] Neck: Supple Lungs: Decreased Breath Sounds (bilateral bases), Rales (fine rales bilateral bases), Other (tachypnea) Cardiovascular: Regular Rhythm GI/Abdominal Exam: Soft, Non-Tender, No Distention Extremities: Normal Capillary Refill Skin: Warm, Dry, Intact Neurological: No New Focal Deficit Psy/Mental Status: Alert Sepsis Event Note - Evaluation Sepsis Screening Result: No Definite Risk - Focused Exam Vital Signs: Vital Signs Temp Pulse Pulse Resp BP BP Pulse Ox 08/20/19 11:48 35.6 C L 80 22 H 114/66 96 08/20/19 08:50 36.1 C 67 24 H 102/84 96 08/20/19 08:46 102/84 08/20/19 08:45 67 102/84 08/20/19 04:28 83 22 H 91/62 97 Date Exam was Performed: 08/20/19 Time Exam was Performed: 13:39 - Problem List & Annotations (1) Pneumonia SNOMED Code(s): 873188930 Code(s): J18.9 - PNEUMONIA, UNSPECIFIED ORGANISM Status: Acute Priority: High Current Visit: Yes - Problem List Review Problem List Initiated/Reviewed/Updated: Yes - My Orders Last 24 Hours: My Active Orders 08/19/19 14:45 diazePAM [Valium] 5 mg IV BID PRN 08/19/19 15:00 D5 1/2 NS w/ 20 mEq/L KCl 1,000 ml IV ASDIRECTED 08/19/19 18:50 Resuscitation Status Routine 08/19/19 19:32 Morphine Sulfate [Morphine] 4 mg IV Q4H PRN 08/19/19 19:34 diazePAM [Valium] 5 mg IVPUSH Q4H PRN 08/19/19 21:00 Acetaminophen [Tylenol Extra Strength] 500 mg PO BID atorvaSTATin [Lipitor] 80 mg PO BEDTIME traZODone 50 mg PO BEDTIME 08/19/19 21:22 Torsemide [Demadex] 5 mg PO DAILY 08/19/19 21:30 Apixaban [Eliquis] 2.5 mg PO BID Omeprazole 20 mg PO BID 08/19/19 21:33 Metoprolol Succinate [Toprol XL] 25 mg PO BID 08/20/19 08:00 Cholecalciferol (Vitamin D3) [Vitamin D3] 2,000 unit PO DAILY Furosemide [Lasix] 40 mg PO DAILY Levothyroxine 25 mcg PO DAILY lisinopriL [Prinivil] 10 mg PO DAILY - Assessment Assessment:: 08/18/2019 Assessment Hypokalemia UTI Plan Continue IVF, recheck electrolytes on 08/19/2019. Continue IV antibiotics Return to Care Center on 08/18/2019 08/19/2019 Assessment Pneumonia Hypokalemia UTI Plan 1) Pneumonia CXR obtained because of mild hypoxia, tachypnea, and fine rales. Acute changes noted consistent with pneumonia. Phone conversation with daughter (Jasmyn) to discuss plan of care and whether or not to start IV antibiotics. She will discuss with family and contact me with their decision. 2) Hypokalemia K=3.2 this morning; given 40 Jimmy KCl orally today. Will recheck on 08/20/2019. 3) UTI Continues to get IV antibiotic as previously ordered. Will reevaluate medications after daughter notifies me of plan for treating pneumonia. 08/20/2019 Assessment Pneumonia Plan 1) Pneumonia: supplemental oxygen as needed to keep saturation 92% or greater. Family has opted to NOT start antibiotics at this time. 2) Hypokalemia: resolved. 3) UTI Continues to get IV antibiotic as previously prescribed. Will dc after 5 days.
[2019-08-20] MEDS: diazePAM 5 MG/ML MDV IV PRN (14:35)
[2019-08-20] MEDS: cefTRIAXone 1 GM in Sodium Chloride 0.9% 50 ML IV SCH (15:33)
[2019-08-20] MEDS: traZODone 50 MG Tab PO SCH ×2 (19:30→20:00)
[2019-08-20] MEDS: atorvaSTATin 80 MG Tab PO SCH ×2 (19:30→20:00)
[2019-08-20] MEDS: Melatonin 3 MG Tab PO SCH ×2 (19:30→20:00)
--- NOTE | 2019-08-20 23:24 | CR ---
DATE OF SERVICE: 08/19/2019 CLINICAL DATA: Tachypnea. AP CHEST: Comparison is made to a prior exam dated 05/17/2019. The patient has taken a poor inspiration. The heart is enlarged. There is pulmonary vascular congestion and bilateral interstitial edema consistent with congestive failure. There are densities in both lower lungs consistent with basilar atelectasis or infiltrate. There is blunting of both costophrenic angles consistent with bilateral pleural effusions. No other significant findings. [id number] [facility]
--- NOTE | 2019-08-21 11:21 | PCM.DCSUM1 ---
Discharge Summary - Hospital Course Diagnosis: Stroke: No - Discharge Data Discharge Date: 08/21/19 Discharge Disposition: DC/Tfer to SNF 03 Preliminary Cause of *Q: Other_Special Instruction (end of life) Condition: Poor - Referral to Home Health Primary Care Physician: PCP None - Discharge Diagnosis/Problem(s) (1) Pneumonia SNOMED Code(s): 679572013 ICD Code: J18.9 - PNEUMONIA, UNSPECIFIED ORGANISM Status: Acute Priority : High Current Visit: Yes Qualifiers: Laterality: unspecified laterality Lung location: lower lobe of lung - Discharge Plan *PRESCRIPTION DRUG MONITORING PROGRAM REVIEWED*: Not Applicable Home Medications: Home Meds Cholecalciferol (Vitamin D3) [Vitamin D3] 2,000 unit PO DAILY 02/23/18 [History] Albuterol/Ipratropium [DuoNeb 3.0-0.5 MG/3 ML] 3 ml NEB Q4H PRN neb 05/23/19 [ Rx] atorvaSTATin [Lipitor] 80 mg PO BEDTIME tablet 05/23/19 [Rx] traZODone HCl [Trazodone HCl] 50 mg PO BEDTIME 05/23/19 [History] Acetaminophen [Acetaminophen Extra Strength] 500 mg PO BID 07/24/19 [History] Apixaban [Eliquis] 2.5 mg PO BID 07/24/19 [History] Cholestyramine/Sucrose [Cholestyramine] 4 gm PO DAILY 07/24/19 [History] Levothyroxine Sodium [Synthroid] 25 mcg PO DAILY 07/24/19 [History] Mag Hydrox/Aluminum Hyd/Simeth [Mylanta Maximum Strength Liq] 20 mg PO DAILY PRN 07/24/19 [History] Melatonin 3 mg PO DAILY 07/24/19 [History] Metoprolol Succinate [Toprol XL] 25 mg PO BID 07/24/19 [History] Omeprazole 20 mg PO BID 07/24/19 [History] Torsemide 5 mg PO DAILY 07/24/19 [History] lisinopriL [Prinivil] 5 mg PO DAILY 07/24/19 [History] FLUoxetine HCl [Prozac] 20 mg DAILY 08/17/19 [History] Furosemide [Lasix] 40 mg PO DAILY 08/19/19 [History] Oxygen Therapy Mode: Nasal Cannula Oxygen Flow Rate (L/min): 2 (as needed for comfort) Forms: ED Department Discharge Referrals: PCP,None [Primary Care Provider] - - Discharge Summary/Plan Comment DC Time >30 min.: Yes - General Info Date of Service: 08/21/19 Admission Dx/Problem (Free Text: Pneumonia Hypokalemia UTI Subjective Update: Family of patient has decided to stop acute care measures and move to end of life care. - Review of Systems General: Reports: No Symptoms HEENT: Reports: No Symptoms Pulmonary: Reports: Shortness of Breath, Cough Cardiovascular: Reports: No Symptoms Gastrointestinal: Reports: No Symptoms Musculoskeletal: Reports: No Symptoms Skin: Reports: No Symptoms Neurological: Reports: No Symptoms - Patient Data Vitals - Most Recent: Last Vital Signs Temp 35.3 C L 08/21/19 08:00 Pulse 76 08/21/19 08:00 Resp 16 08/21/19 08:00 BP 90/59 L 08/21/19 08:00 Pulse Ox 94 L 08/21/19 08:00 Weight - Most Recent: 69.672 kg I&O - Last 24 hours: Intake & Output 08/20/19 08/21/19 08/21/19 22:59 06:59 14:59 Intake Total 900 Balance 900 Med Orders - Current: Current Medications Acetaminophen (Tylenol Extra Strength) 500 mg PO BID [facility] Last Admin: 08/20/19 20:00 Dose: Not Given Albuterol/Ipratropium (Duoneb 3.0-0.5 Mg/3 Ml) 3 ml INH Q4H PRN PRN Reason: Wheezing Discontinued Medications Al Hydroxide/Mg Hydroxide (Mag-Al Plus) 30 ml PO DAILY PRN PRN Reason: Heartburn Apixaban (Eliquis) Confirm Administered Dose 2.5 mg .ROUTE .STK-MED ONE Stop: 08/19/19 21:09 Last Admin: 08/19/19 21:38 Dose: Not Given Apixaban (Eliquis) 2.5 mg PO BID [facility] Last Admin: 08/20/19 20:00 Dose: Not Given Atorvastatin Calcium (Lipitor) 80 mg PO BEDTIME [facility] Last Admin: 08/20/19 20:00 Dose: Not Given Calamine/Phenol (Calmoseptine) Confirm Administered Dose 113 gm TOP .STK-MED ONE Stop: 08/19/19 04:05 Last Admin: 08/19/19 13:38 Dose: Not Given Ceftriaxone Sodium (Rocephin) Confirm Administered Dose 1 gm .ROUTE .STK-MED ONE Stop: 08/17/19 15:40 Last Admin: 08/17/19 16:25 Dose: Not Given Cholecalciferol (Vitamin D3) 2,000 unit PO DAILY [facility] Last Admin: 08/20/19 08:44 Dose: 2,000 unit Cholestyramine Resin (Cholestyramine Powder) 4 gm PO DAILY [facility] Last Admin: 08/20/19 08:47 Dose: 4 gm Diazepam (Valium) 5 mg IV BID PRN PRN Reason: Anxiety Last Admin: 08/20/19 14:35 Dose: 5 mg Diazepam (Valium) 5 mg IVPUSH Q4H PRN PRN Reason: Anxiety Furosemide (Lasix) 40 mg PO DAILY [facility] Last Admin: 08/20/19 08:44 Dose: 40 mg Potassium Chloride/Dextrose/Sod Cl (D5 1/2 Ns W/ 20 Meq/L Kcl) 1,000 mls @ 75 mls/hr IV ASDIRECTED [facility] Last Admin: 08/18/19 12:00 Dose: 100 mls/hr Ceftriaxone Sodium 1 gm/ (Sodium Chloride) 50 mls @ 200 mls/hr IV ONETIME ONE Stop: 08/17/19 16:14 Last Admin: 08/17/19 15:33 Dose: 200 mls/hr Ceftriaxone Sodium 1 gm/ (Sodium Chloride) 50 mls @ 100 mls/hr IV Q24H [facility] Ceftriaxone Sodium 1 gm/ (Sodium Chloride) 50 mls @ 200 mls/hr IV Q24H [facility] Last Admin: 08/20/19 15:33 Dose: 200 mls/hr Sodium Chloride (Normal Saline) 1,000 mls @ 500 mls/hr IV .BOLUS ONE Stop: 08/17/19 21:03 Last Admin: 08/17/19 21:23 Dose: 500 mls/hr Potassium Chloride/Dextrose/Sod Cl (D5 1/2 Ns W/ 20 Meq/L Kcl) 1,000 mls @ 75 mls/hr IV ASDIRECTED [facility] Last Admin: 08/20/19 18:35 Dose: 75 mls/hr Levothyroxine Sodium (Levothyroxine) 25 mcg PO DAILY [facility] Last Admin: 08/20/19 08:49 Dose: 25 mcg Lisinopril (Prinivil) 10 mg PO DAILY [facility] Last Admin: 08/19/19 08:57 Dose: 10 mg Lisinopril (Prinivil) 10 mg PO DAILY [facility] Last Admin: 08/20/19 08:46 Dose: 10 mg Lorazepam (Ativan) 1 mg IVPUSH BEDTIME PRN PRN Reason: Sleep Melatonin (Melatonin) 3 mg PO BEDTIME [facility] Last Admin: 08/20/19 20:00 Dose: Not Given Metoprolol Succinate (Toprol Xl) 25 mg PO BID [facility] Last Admin: 08/19/19 21:21 Dose: 25 mg Metoprolol Succinate (Toprol Xl) Confirm Administered Dose 25 mg .ROUTE .STK- MED ONE Stop: 08/19/19 21:09 Last Admin: 08/19/19 21:38 Dose: Not Given Metoprolol Succinate (Toprol Xl) 25 mg PO BID [facility] Last Admin: 08/20/19 21:40 Dose: Not Given Morphine Sulfate (Morphine) 4 mg IV Q4H PRN PRN Reason: Pain Last Admin: 08/21/19 09:55 Dose: 4 mg (Acetaminophen [ Acetaminophen Extra Strength] 500 Mg) Own Med 500 mg PO BID [facility] Last Admin: 08/19/19 21:40 Dose: Not Given (Apixaban [Eliquis] (2.5 Mg)Own Med) 2.5 mg PO BID [facility] Last Admin: 08/19/19 21:40 Dose: Not Given (Atorvastatin [ Lipitor] 80 Mg) Own Med 80 mg PO BEDTIME [facility] Last Admin: 08/19/19 21:40 Dose: Not Given (Cholecalciferol ( Vitamin D3) [Vitamin D3] 2,000 Unit) Own Med 2,000 unit PO DAILY [facility] Last Admin: 08/19/19 08:56 Dose: 2,000 unit (Levothyroxine Sodium [Synthroid] 25 Mcg)Own Meds * 25 mcg PO DAILY [facility] Last Admin: 08/19/19 08:56 Dose: 25 mcg Non-Formulary Medication (Lisinopril [Prinivil]) 5 mg PO BID [facility] (Metoprolol Succinate [Toprol Xl ] 25 Mg)Own Med * 25 mg PO BID [facility] Last Admin: 08/19/19 21:39 Dose: Not Given (Omeprazole [ Omeprazole] 20 Mg) *Own Med 20 mg PO BID [facility] Last Admin: 08/19/19 21:15 Dose: 20 mg (Torsemide [ Torsemide] 5 Mg) Own Med 5 mg PO DAILY [facility] Last Admin: 08/19/19 08:57 Dose: 5 mg (Trazodone Hcl [ Trazodone Hcl] 50 Mg )Own Med 50 mg PO BEDTIME [facility] Last Admin: 08/19/19 21:39 Dose: Not Given Omeprazole (Omeprazole) Confirm Administered Dose 20 mg .ROUTE [email or web address] ONE Stop: 08/19/19 21:09 Last Admin: 08/19/19 21:38 Dose: Not Given Omeprazole (Omeprazole) 20 mg PO BID [facility] Last Admin: 08/20/19 20:00 Dose: Not Given Ondansetron HCl (Zofran) 4 mg IVPUSH Q4H PRN PRN Reason: Nausea/Vomiting Lasix 20 Mg Tabs *Pt (Own Med*) 0 each PO DAILY [facility] Potassium Chloride (Klor-Con M20) 40 meq PO BID [facility] Last Admin: 08/20/19 20:00 Dose: Not Given Torsemide (Demadex) 5 mg PO DAILY [facility] Last Admin: 08/20/19 08:35 Dose: 5 mg Trazodone HCl (Trazodone) Confirm Administered Dose 50 mg .ROUTE [email or web address] ONE Stop: 08/19/19 21:09 Last Admin: 08/19/19 21:39 Dose: Not Given Trazodone HCl (Trazodone) 50 mg PO BEDTIME [facility] Last Admin: 08/20/19 20:00 Dose: Not Given - Exam General: Reports: No Acute Distress (alerts occasionally), Other HEENT: Reports: Pupils Equal, Pupils Reactive Lungs: Reports: Decreased Breath Sounds Cardiovascular: Reports: Regular Rhythm Extremities: Normal Capillary Refill Skin: Reports: Warm, Dry, Intact Neurological: Reports: No New Focal Deficit
[2019-08-21] MEDS: diazePAM 5 MG/ML MDV IV PRN (13:00)
[2019-08-21] MEDS: Cholestyramine/Sucrose Powder 378 GM Jar PO SCH (13:45)
[2019-08-21] MEDS: Apixaban 2.5 MG Tab PO SCH (13:45)
[2019-08-21] MEDS: Torsemide 20 MG Tab PO SCH (13:45)
[2019-08-21] MEDS: Acetaminophen 500 MG Tab PO SCH (13:45)
[2019-08-21] MEDS: Levothyroxine 25 MCG Tab PO SCH (13:45)
[2019-08-21] MEDS: Furosemide 40 MG Tab PO SCH (13:45)
[2019-08-21] MEDS: Potassium Chloride 20 MEQ Tab.ER PO SCH (13:45)
[2019-08-21] MEDS: Lisinopril 10 MG Tab PO SCH (13:46)
[2019-08-21] MEDS: Metoprolol Succinate 25 MG Tab.ER PO SCH (13:46)
[2019-08-21] MEDS: Omeprazole 20 MG Cap.CR PO SCH (13:46)
[2019-08-21] MEDS: Cholecalciferol (Vitamin D3) 2,000 Unit Cap PO SCH (13:47)
== END 2019-08-21 13:30 | DRG 194 ==
LOC: LB.ED 14:05 → UNDOADMOB 15:03 → LB.MS 15:03 → OBSVTOIN 08-19 11:47 → INTOOBSV 08-19 11:47 → UNDODISIN 08-21 13:30
PROVIDERS: ADMIT Nurse Practitioner; ATTEND Nurse Practitioner
DX: J18.9 Pneumonia, unspecified organism (principal); N39.0 Urinary tract infection, site not specified; E87.6 Hypokalemia; H91.90 Unspecified hearing loss, unspecified ear; H54.7 Unspecified visual loss; K57.90 Diverticulosis of intestine, part unspecified, without perforation or abscess without bleeding; I10 Essential (primary) hypertension; M19.90 Unspecified osteoarthritis, unspecified site; E03.9 Hypothyroidism, unspecified; Z90.49 Acquired absence of other specified parts of digestive tract; Z90.710 Acquired absence of both cervix and uterus; Z88.6 Allergy status to analgesic agent; Z79.899 Other long term (current) drug therapy; Z79.01 Long term (current) use of anticoagulants; Z79.890 Hormone replacement therapy; Z88.1 Allergy status to other antibiotic agents; Z88.8 Allergy status to other drugs, medicaments and biological substances; Z88.2 Allergy status to sulfonamides; Z88.5 Allergy status to narcotic agent; Z99.81 Dependence on supplemental oxygen; Z87.440 Personal history of urinary (tract) infections; Z86.73 Personal history of transient ischemic attack (TIA), and cerebral infarction without residual deficits; Z20.828 Contact with and (suspected) exposure to other viral communicable diseases
CPT/HCPCS: 36415; 71045; 74018; 80048; 81001; 85025; 93005; 96365; 96366; 96367; 96376; 99218; 99224; 99231; 99232; 99239; 99285-25; A9270-GY; G0378; J0696; J2270; J3360; J3480; J7040; J7050; U0002